=== PATIENT | male | born 1970 | race African-American/Black ===

== ENCOUNTER 2016-09-10 21:02 | Emergency (ER) | payer OTHER ==
[2016-09-10 21:09] VITALS: BP 136/77; PULSE 101; RESP 18; TEMP 98
[2016-09-10] MEDS ORDERED: ORPHENADRINE 30 MG/ML 2 ML VIAL IM STA (21:48)
[2016-09-10] MEDS ORDERED: KETOROLAC 60 MG/2 ML VIAL IM STA (21:48)
--- NOTE | 2016-09-10 21:50 | ED ---
General Adult HPI - General Chief complaint: Back Pain/Injury Stated complaint: Back Pain Time Seen by Provider: 09/10/16 21:27 Source: patient, RN notes reviewed Mode of arrival: ambulatory Limitations: no limitations - History of Present Illness Initial comments: This is a 46-year-old male who presents with chronic lower back pain. Patient states he currently takes tramadol for this, but it is not helping. Patient denies any new injury or new symptoms. 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 Patient has no idea what kind of tumor this is and has not had it reassessed in a long time. Patient just moved here from [place] and does not have a primary care physician. Patient is requesting pain medication. Patient denies any change in bowel or bladder function or loss of sensation to the saddle area. Patient denies any new numbness/tingling or weakness to the bilateral lower extremities. Patinet states he chronically has some radicular pain and left leg numbness but these symptoms are not worse. Patient is able to ambulate but states this is painful.Patient denies any recent fever, chills, shortness breath, chest pain, abdominal pain, nausea/vomiting/diarrhea, hematuria, headache, or visual changes, or any other complaints. - Related Data Previous Rx's Medication Instructions Recorded HYDROcodone/APAP 5-325MG [[place] 1 tab PO Q6HR #12 tab 09/10/16 5-325] Propranolol [Inderal] 40 mg PO BID 7 Days 09/10/16 Allergies Allergy/AdvReac Type Severity Reaction Status Date / Time No Known Allergies Allergy Verified 09/10/16 21:09 Review of Systems ROS Statement: Those systems with pertinent positive or pertinent negative responses have been documented in the HPI. ROS Other: All systems not noted in ROS Statement are negative. Past Medical History Past Medical History: Renal Disease Additional Past Medical History / Comment(s): tumor on back History of Any Multi-Drug Resistant Organisms: None Reported Past Surgical History: Back Surgery Additional Past Surgical History / Comment(s): cyst removed from throat Past Psychological History: Anxiety Smoking Status: Never smoker Past Alcohol Use History: None Reported Past Drug Use History: None Reported General Exam - General Exam Comments Initial Comments: General: The patient is awake and alert, in no distress, and does not appear acutely ill. Neck: The neck is supple, there is no tenderness or JVD. Cardiovascular: There is a regular rate and rhythm. No murmur, rub or gallop is appreciated. Respiratory: Lungs are clear to auscultation, respirations are non-labored, breath sounds are equal. No wheezes, stridor, rales, or rhonchi. Musculoskeletal: Strength 5/5, full range of motion and Sensation intact. Radial pulses 2+ bilaterally. Patient is ambulatory in the EC. Neurological: A&O x 3. CN II-XII intact, There are no obvious motor or sensory deficits. Coordination appears grossly intact. Speech is normal. Skin: Skin is warm and dry and no rashes or lesions are noted. Psychiatric: Normal mood and affect. Limitations: no limitations Course Vital Signs 09/10/16 21:08 Temperature 98.0 F Pulse Rate 101 H Respiratory 18 Rate Blood Pressure 136/77 O2 Sat by Pulse 99 Oximetry Medical Decision Making - Medical Decision Making This is a 46-year-old male presents with chronic back pain. Patient is requesting stronger pain medication as his tramadol is not working. On physical exam patient is neurologically intact. Strength 5/5, full range of motion and Sensation intact. Radial pulses 2+ bilaterally. Patient is ambulatory in the EC. An x-ray of the lumbar spine was done and reviewed showing: Negative lumbar spine exam. Report by Dr. Hunt. Patient was given Toradol and Norflex in the EC today. I discussed the patient will receive a short prescription for [place] until he can follow up with the primary care physician and orthopedics as he just recently moved here from [place]. I discussed return parameters. Patient was requesting a refill of his blood pressure medication as he only has 2 days left. Patient states he takes propanolol 40 mg twice daily and has been taking this for years. I discussed that he will be given a short prescription for this but he needs to follow-up with his primary care physician for any further prescriptions. I discussed the patient will be given a referral to orthopedics to follow up with a spine surgeon in regards to his history. Patient denies any new neuro symptoms or change in bowel or bladder function. I discussed the patient is to follow-up with a primary care physician and orthopedics in 1-2 days or return to the EC for any worsening symptoms or for any further concerns. Patient was receptive to this plan patient will be discharged home. Patient was given a primary care referral today. I discussed this case with attending physician Dr. Ron agrees with plan as stated above. Disposition Clinical Impression: Chronic low back pain Disposition: HOME SELF-CARE Condition: Good Instructions: Chronic Back Pain (ED) Additional Instructions: Please use [place] as prescribed. Please follow-up with orthopedics in regards to your back pain. Please take medication as prescribed. Please follow-up with her primary care physician in one to 2 days or return to the EC for worsening symptoms or for any further concerns. Prescriptions: HYDROcodone/APAP 5-325MG [[place] 5-325] 1 tab PO Q6HR #12 tab Propranolol [Inderal] 40 mg PO BID 7 Days Referrals: Cb Heredia MD [STAFF PHYSICIAN] - 1-2 days None,Stated [Primary Care Provider] - 1-2 days Jamaal Tobar MD [STAFF PHYSICIAN] - 1-2 days Dee Dee Martins MD [REFERRING] - 1-2 days Time of Disposition: 22:42
--- NOTE | 2016-09-10 22:11 | XR ---
EXAMINATION TYPE: XR lumbar spine 2 or 3V DATE OF EXAM: 09/10/2016 10:00 PM COMPARISON: NONE HISTORY: Low back pain TECHNIQUE: 3 views FINDINGS: The vertebra have normal alignment. Disc spaces are fairly normal. Posterior elements are i ntact. Sacroiliac joints are normal. There is no sign of a compression fracture. IMPRESSION: Negative lumbar spine exam.
== END 2016-09-10 22:54 | disposition home or self-care (01) ==
LOC: EC 21:02
DX: M54.5 Low back pain (principal); G89.29 Other chronic pain; Z86.018 Personal history of other benign neoplasm
CPT/HCPCS: 99283 ×2; 96372 ×3; 72100; J2360; J1885

== ENCOUNTER 2016-10-18 16:23 | Emergency (ER) | payer OTHER ==
[2016-10-18] MEDS ORDERED: KETOROLAC 30 MG/ML 1 ML VIAL IVP STA (17:00)
--- NOTE | 2016-10-18 17:41 | ED ---
Chest Pain HPI - General Chief Complaint: Chest Pain Stated Complaint: Chest Pain Time Seen by Provider: 10/18/16 16:36 Source: patient, RN notes reviewed Mode of arrival: wheelchair Limitations: no limitations - History of Present Illness Initial Comments: This is a 46-year-old male who presents with complaints of left-sided anterior chest pain somewhat sharp in nature also bilateral mostly on the left leg pain he states he was here about a month ago for the same symptoms he denies any fevers chills nausea vomiting sweats he has no known heart disease he believes he does have lumbar disc disease he was just concerned because of both pain he states is about 5/10 in severity. He denies any fevers chills cough or other symptoms at this time no exertional dyspnea. No focal weakness. MD Complaint: chest pain, other - Related Data Home Medications Medication Instructions Recorded Confirmed ALPRAZolam [Xanax] 0.5 mg PO TID PRN 10/18/16 10/18/16 Meclizine [Antivert] 25 mg PO TID PRN 10/18/16 10/18/16 traMADol HCL [Ultram] 50 mg PO Q6H PRN 10/18/16 10/18/16 Previous Rx's Medication Instructions Recorded Propranolol [Inderal] 40 mg PO BID 7 Days 09/10/16 Ibuprofen [Motrin] 800 mg PO Q6HR PRN #20 tab 10/18/16 Morphine Sulfate ER [Ms Contin] 30 mg PO Q8H #10 tab 10/18/16 predniSONE 20 mg PO BID #10 tab 10/18/16 Allergies Allergy/AdvReac Type Severity Reaction Status Date / Time hydroxyzine [From Vistaril] Allergy Unknown Verified 10/18/16 16:58 Review of Systems ROS Statement: Those systems with pertinent positive or pertinent negative responses have been documented in the HPI. ROS Other: All systems not noted in ROS Statement are negative. EKG Findings - EKG Results: EKG: interpreted by DON, sinus rhythm (Sinus rhythm rate of 79. Interval 154 QRS duration 94 QT/QTC 398/456 that exodeviation minimal voltage criteria for LVH no acute ST elevation or depressions.) Past Medical History Past Medical History: Renal Disease Additional Past Medical History / Comment(s): tumor on back History of Any Multi-Drug Resistant Organisms: None Reported Past Surgical History: Back Surgery Additional Past Surgical History / Comment(s): cyst removed from throat Past Psychological History: Anxiety Smoking Status: Former smoker Past Alcohol Use History: None Reported Past Drug Use History: None Reported General Exam - General Exam Comments Initial Comments: This is a well up well-nourished awake alert oriented 3 male Limitations: no limitations General appearance: alert, in no apparent distress Head exam: Present: atraumatic, normocephalic, normal inspection Eye exam: Present: normal appearance, PERRL, EOMI. Absent: scleral icterus, conjunctival injection, periorbital swelling ENT exam: Present: normal exam, mucous membranes moist Neck exam: Present: normal inspection. Absent: tenderness, meningismus, lymphadenopathy Respiratory exam: Present: normal lung sounds bilaterally, chest wall tenderness. Absent: respiratory distress, wheezes, rales, rhonchi, stridor Cardiovascular Exam: Present: regular rate, normal rhythm, normal heart sounds. Absent: systolic murmur, diastolic murmur, rubs, gallop, clicks GI/Abdominal exam: Present: soft, normal bowel sounds. Absent: distended, tenderness, guarding, rebound, rigid Extremities exam: Present: normal inspection, full ROM, normal capillary refill. Absent: tenderness, pedal edema, joint swelling, calf tenderness Back exam: Present: normal inspection, tenderness, paraspinal tenderness. Absent: vertebral tenderness Neurological exam: Present: alert, oriented X3, CN II-XII intact Psychiatric exam: Present: normal affect, normal mood Skin exam: Present: warm, dry, intact, normal color. Absent: rash Course Vital Signs 10/18/16 10/18/16 16:25 17:28 Temperature 98.1 F Pulse Rate 83 76 Respiratory 18 16 Rate Blood Pressure 118/75 133/82 O2 Sat by Pulse 100 99 Oximetry Chest Pain MDM - MDM Review the imaging shows no acute findings. Patient is feeling improved by did a long discussion with him the symptoms are consistent with musculoskeletal chest pain additionally the pain is lower extremities likely radicular from his lumbar spine. He is to follow-up with Dr. godinez when necessary. Disposition Clinical Impression: Chest wall syndrome, Costalchondritis, Lumbar radiculopathy Disposition: HOME SELF-CARE Condition: Good Instructions: Costochondritis (ED), Chest Pain (ED), Lumbar Radiculopathy (ED) , Lower Back Exercises (ED) Prescriptions: Ibuprofen [Motrin] 800 mg PO Q6HR PRN #20 tab PRN Reason: Pain Morphine Sulfate ER [Ms Contin] 30 mg PO Q8H #10 tab predniSONE 20 mg PO BID #10 tab
[2016-10-18 17:48] VITALS: RESP 16
[2016-10-18 17:54] LABS: Basophils # (A) 0.1 k/uL (0-0.2); Basophils % (A) 2 %; CH 27.6; CHCM 31.4; Eosinophils # (A) 0.4 k/uL (0-0.7); Eosinophils % (A) 7 %; HCT 42.8 % (39.0-53.0); HDW 3.95; HGB 13.7 gm/dL (13.0-17.5); Hypochromasia Moderate; Luc # (Auto) 0.17; Luc % (Auto) 3; Lymphocytes # (A) 2.2 k/uL (1.0-4.8); Lymphocytes % (A) 45 %; MCH 28.4 pg (25.0-35.0); MCHC 31.9 g/dL (31.0-37.0); MCV 88.8 fL (80.0-100.0); Monocytes # (A) 0.3 k/uL (0-1.0); Monocytes % (A) 6 %; Neutrophils # (A) 1.8 k/uL (1.3-7.7); Neutrophils % (A) 36 %; Poikilocytosis Slight; RBC 4.81 m/uL (4.30-5.90); WBC 4.9 k/uL (3.8-10.6); WBC (Perox) 4.88
[2016-10-18 18:04] LABS: Partial Thromboplastin Time 26.5 sec (22.0-30.0)
[2016-10-18 18:05] LABS: ALT 44 U/L (21-72); AST 31 U/L (17-59); Alkaline Phosphatase 60 U/L (38-126); Amylase 93 U/L (30-110); Anion Gap 10 mmol/L; Blood Urea Nitrogen 19 mg/dL (9-20); Calcium 9.9 mg/dL (8.4-10.2); Carbon Dioxide 26 mmol/L (22-30); Chloride 103 mmol/L (98-107); Glucose 87 mg/dL (74-99); Magnesium 1.7 mg/dL (1.6-2.3); Non-African American GFR(MDRD) >60 (>60 ml/min/1.73 sqM); Potassium 4.5 mmol/L (3.5-5.1); Sodium 139 mmol/L (137-145); Total Bilirubin 1.1 mg/dL (0.2-1.3); Total Protein 7.7 g/dL (6.3-8.2)
[2016-10-18 18:10] LABS: Creatine Kinase 345 U/L (55-170)
[2016-10-18 18:23] LABS: Creatine Kinase MB 1.1 ng/mL (0.0-2.4); Troponin I <0.012 ng/mL (0.000-0.034)
--- NOTE | 2016-10-18 18:23 | XR ---
EXAMINATION TYPE: XR chest 2V DATE OF EXAM: 10/18/2016 6:10 PM COMPARISON: NONE HISTORY: Chest pain TECHNIQUE: Frontal and lateral views of the chest are obtained. FINDINGS: Heart and mediastinum are normal. There is mild thoracic dextroscoliosis. There is mild li near density in both lower lung forman. There are no hilar masses. There are chest leads. Bony thorax appears intact. IMPRESSION: Mild scarring or subsegmental atelectasis. Normal heart.
--- NOTE | 2016-10-18 18:24 | XR ---
EXAMINATION TYPE: XR lumbosacral spine min 4V DATE OF EXAM: 10/18/2016 6:10 PM COMPARISON: NONE HISTORY: Low back pain TECHNIQUE: 5 views FINDINGS: The lumbar vertebra have normal alignment. Posterior elements are intact. Sacroiliac joints appear normal. There is no compression fracture. IMPRESSION: Negative lumbar spine exam.
[2016-10-18 19:21] VITALS: BP 110/72; PULSE 66; TEMP 97.8
== END 2016-10-18 19:10 | disposition home or self-care (01) ==
LOC: EC 16:23
DX: M94.0 Chondrocostal junction syndrome [Tietze] (principal); M54.16 Radiculopathy, lumbar region; Z87.891 Personal history of nicotine dependence; Z88.8 Allergy status to other drugs, medicaments and biological substances
CPT/HCPCS: 36415; 93005; 85379; 80053; 82150; 82550; 82553; 83690; 83735; 84484; 85025; 85610; 85730; 71020; 72110; 99285; 96374; J1885

== ENCOUNTER 2016-10-26 10:11 | Emergency (ER) | payer OTHER ==
[2016-10-26 10:15] VITALS: BP 156/96; PULSE 69; RESP 16; TEMP 98
--- NOTE | 2016-10-26 10:36 | ED ---
General Adult HPI - General Chief complaint: Recheck/Abnormal Lab/Rx Stated complaint: med refill Time Seen by Provider: 10/26/16 10:25 Source: patient, RN notes reviewed Mode of arrival: ambulatory Limitations: no limitations - History of Present Illness Initial comments: Patient 46-year-old male who presents emergency room today with chief complaint of needing medication refill. He states he recently moved here from [place]. States he is out of medications of aspirin, propranolol, and Xanax. Patient states he does have an appointment with the family doctor but not until November 11. Patient denies any complaints. Patient denies any recent fever, chills, shortness of breath, chest pain, back pain, abdominal pain, nausea or vomiting, numbness or tingling, dysuria or hematuria, constipation or diarrhea, headaches or visual changes, or any other complaints. - Related Data Home Medications Medication Instructions Recorded Confirmed ALPRAZolam [Xanax] 0.5 mg PO TID PRN 10/18/16 10/18/16 Meclizine [Antivert] 25 mg PO TID PRN 10/18/16 10/18/16 traMADol HCL [Ultram] 50 mg PO Q6H PRN 10/18/16 10/18/16 Previous Rx's Medication Instructions Recorded Propranolol [Inderal] 40 mg PO BID 7 Days 09/10/16 Ibuprofen [Motrin] 800 mg PO Q6HR PRN #20 tab 10/18/16 Morphine Sulfate ER [Ms Contin] 30 mg PO Q8H #10 tab 10/18/16 predniSONE 20 mg PO BID #10 tab 10/18/16 ALPRAZolam [Xanax] 0.5 mg PO Q8HR #45 tab 10/26/16 Aspirin 81 mg PO DAILY #30 chewable 10/26/16 Propranolol [Inderal] 40 mg PO BID #60 tab 10/26/16 Allergies Allergy/AdvReac Type Severity Reaction Status Date / Time hydroxyzine [From Vistaril] Allergy Unknown Verified 10/26/16 10:15 Review of Systems ROS Statement: Those systems with pertinent positive or pertinent negative responses have been documented in the HPI. ROS Other: All systems not noted in ROS Statement are negative. Past Medical History Past Medical History: Hypertension, Renal Disease Additional Past Medical History / Comment(s): tumor on back History of Any Multi-Drug Resistant Organisms: None Reported Past Surgical History: Back Surgery Additional Past Surgical History / Comment(s): cyst removed from throat Past Psychological History: Anxiety Smoking Status: Former smoker Past Alcohol Use History: None Reported Past Drug Use History: None Reported General Exam - General Exam Comments Initial Comments: General: The patient is awake and alert, in no distress, and does not appear acutely ill. Eye: Pupils are equal, round and reactive to light, extra-ocular movements are intact. No nystagmus. There is normal conjunctiva bilaterally. No signs of icterus. Ears, nose, mouth and throat: There are moist mucous membranes and no oral lesions. Neck: The neck is supple, there is no tenderness or JVD. Musculoskeletal: Normal ROM, no tenderness. Strength 5/5. Sensation intact. Pulses equal bilaterally 2+. Neurological: A&O x 3. CN II-XII intact, There are no obvious motor or sensory deficits. Coordination appears grossly intact. Speech is normal. Skin: Skin is warm and dry and no rashes or lesions are noted. Psychiatric: Cooperative, appropriate mood & affect, normal judgment. Limitations: no limitations Course Vital Signs 10/26/16 10:12 Temperature 98.0 F Pulse Rate 69 Respiratory 16 Rate Blood Pressure 156/96 O2 Sat by Pulse 97 Oximetry Medical Decision Making - Medical Decision Making Patient will be given prescriptions is able follow-up in 2 weeks with family doctor. Disposition Clinical Impression: Medication refill Disposition: HOME SELF-CARE Condition: Good Instructions: Medicine Refill (ED) Additional Instructions: Please use medications as prescribed and follow-up family doctor as discussed. Please return for any other concerns. Prescriptions: ALPRAZolam [Xanax] 0.5 mg PO Q8HR #45 tab Aspirin 81 mg PO DAILY #30 chewable Propranolol [Inderal] 40 mg PO BID #60 tab Time of Disposition: 10:32
== END 2016-10-26 11:07 | disposition home or self-care (01) ==
LOC: EC 10:11
DX: Z76.0 Encounter for issue of repeat prescription (principal); Z87.891 Personal history of nicotine dependence; Z88.8 Allergy status to other drugs, medicaments and biological substances
CPT/HCPCS: 99281

== ENCOUNTER 2016-11-14 13:40 | Emergency (ER) | payer OTHER ==
[2016-11-14 13:49] VITALS: RESP 18
[2016-11-14] MEDS ORDERED: HYDROcodone/APAP 5-325MG 1 EACH TAB PO STA (14:14)
--- NOTE | 2016-11-14 14:16 | ED ---
ENT HPI - General Chief complaint: Dental/Oral Stated complaint: Dental Pain Time Seen by Provider: 11/14/16 14:00 Source: patient, RN notes reviewed Mode of arrival: EMS Limitations: no limitations - History of Present Illness Initial comments: 46-year-old male presents emergency department she went dental pain. Patient states that he had teeth extracted on the left upper region. This was 1 week ago. Patient states she's developed some increased pain over the last couple days so dentist yesterday and diagnosed with dry socket. Patient states that they would not give him anything but ibuprofen from the dental clinic. He should states that he cannot tolerate the pain is unbearable. States that the pain is making her very shaky and not feeling well. He denies any fevers or chills. Patient is currently taking penicillin antibiotics. Patient's denies any focal weakness no chest pain or shortness breath. Patient offers no complaints. - Related Data Previous Rx's Medication Instructions Recorded Ibuprofen [Motrin] 800 mg PO Q6HR PRN #20 tab 10/18/16 ALPRAZolam [Xanax] 0.5 mg PO Q8HR #45 tab 10/26/16 Aspirin 81 mg PO DAILY #30 chewable 10/26/16 Propranolol [Inderal] 40 mg PO BID #60 tab 10/26/16 Hydrocodone/Acetaminophen [[place] 1 tab PO Q6HR PRN #15 tab 11/14/16 5-325] Allergies Allergy/AdvReac Type Severity Reaction Status Date / Time hydroxyzine [From Vistaril] Allergy Unknown Verified 10/26/16 10:43 caffeine AdvReac SHAKING Verified 11/14/16 14:01 Review of Systems ROS Statement: Those systems with pertinent positive or pertinent negative responses have been documented in the HPI. ROS Other: All systems not noted in ROS Statement are negative. Past Medical History Past Medical History: Hypertension, Renal Disease Additional Past Medical History / Comment(s): tumor on back History of Any Multi-Drug Resistant Organisms: None Reported Past Surgical History: Back Surgery Additional Past Surgical History / Comment(s): cyst removed from throat Past Psychological History: Anxiety Smoking Status: Former smoker Past Alcohol Use History: None Reported Past Drug Use History: None Reported General Exam General appearance: alert, in no apparent distress Head exam: Present: atraumatic, normocephalic, normal inspection Eye exam: Present: normal appearance, PERRL, EOMI. Absent: scleral icterus, conjunctival injection, periorbital swelling ENT exam: Present: mucous membranes moist, TM's normal bilaterally. Absent: normal oropharynx (poor dentition, the region of #11 there is a large pocket noted with some dry blood and tissue noted) Neck exam: Present: normal inspection. Absent: tenderness, meningismus, lymphadenopathy Respiratory exam: Present: normal lung sounds bilaterally. Absent: respiratory distress, wheezes, rales, rhonchi, stridor Cardiovascular Exam: Present: regular rate, normal rhythm, normal heart sounds. Absent: systolic murmur, diastolic murmur, rubs, gallop, clicks Course Vital Signs 11/14/16 13:43 Temperature 98.2 F Pulse Rate 69 Respiratory 18 Rate Blood Pressure 139/95 O2 Sat by Pulse 99 Oximetry Medical Decision Making - Medical Decision Making 46-year-old male presented for dental pain. Patient be given pain medication at this time. Patient with diagnosis dry socket and only has ibuprofen. Patient is currently on antibiotics. Patient follow-up with dentist tomorrow return parameters were discussed. Disposition Clinical Impression: Dry socket, Pain, dental Disposition: HOME SELF-CARE Condition: Stable Instructions: Dry Socket (ED) Additional Instructions: Please return to the Emergency Department if symptoms worsen or any other concerns. Follow-up with the dentist in one to 2 days. Prescriptions: Hydrocodone/Acetaminophen [[place] 5-325] 1 tab PO Q6HR PRN #15 tab PRN Reason: Pain Referrals: None,Stated [Primary Care Provider] - 1-2 days Time of Disposition: 14:15
[2016-11-14 14:37] VITALS: BP 124/76; PULSE 65; TEMP 98
== END 2016-11-14 14:36 | disposition home or self-care (01) ==
LOC: EC 13:40
DX: K08.89 Other specified disorders of teeth and supporting structures (principal); M27.3 Alveolitis of jaws; Z87.891 Personal history of nicotine dependence; Z91.018 Allergy to other foods; Z88.8 Allergy status to other drugs, medicaments and biological substances
CPT/HCPCS: 99283

== ENCOUNTER → 2017-01-28 | Outpatient (CLI) | payer OTHER ==
--- NOTE | 2017-01-28 13:16 | MR ---
EXAMINATION TYPE: MR lumbar spine wo con DATE OF EXAM: 01/28/2017 COMPARISON: Plain film 10/18/2016 HISTORY: lumbar pain TECHNIQUE: Multiplanar, multisequence images of the lumbar spine were acquired. L1-L2: Normal disc appearance without desiccation. No herniation, protrusion or disc bulging. No ca nal stenosis is present. Foramina are patent bilaterally. L2-L3: Normal disc appearance without desiccation. No herniation, protrusion or disc bulging. No ca nal stenosis is present. Foramina are patent bilaterally. L3-L4: Loss of disc height and signal is present. There is a central posterior disc herniation causin g anterior mass effect on the thecal sac. No significant foraminal encroachment or central stenosis. There is some facet arthropathy with hypertrophy of the ligamentum flavum. Increased signal posterior aspect of the disc compatible with annular tear. L4-L5: Loss of disc height and signal is present. There is a posterior central disc herniation causin g anterior mass effect on the thecal sac. There may be contact of the proximal left L5 nerve root. In creased signal at the posterior aspect suggests annular tear within the posterior disc. Disc herniati on extends somewhat laterally causing anterolateral mass effect on the thecal sac towards the left. L5-S1: Loss of disc height is present. Loss of disc signal. No significant central stenosis or forami nal encroachment. Lumbar segments are intact. No paraspinal masses are identified. Conus medullaris has a normal appe arance. There is a slight spinal curvature convex left centered at approximately L3. Partially sacral ized L5 is suspected. IMPRESSION: Correlate with plain film prior to any intervention. Degenerative disc disease as described.
== END | disposition home or self-care (01) ==
LOC: RADMRIMAIN 08:37
PROVIDERS: ATTEND Internal Medicine
DX: M51.36 Other intervertebral disc degeneration, lumbar region (principal)
CPT/HCPCS: 72148

== ENCOUNTER 2017-02-26 00:20 | Emergency (ER) | payer OTHER ==
[2017-02-26 00:24] VITALS: TEMP 98
[2017-02-26] MEDS ORDERED: SODIUM CHLORIDE 0.9% 1,000 ML IV STA ×2 (02:00)
[2017-02-26] MEDS ORDERED: HYDROmorphone 1 MG/ML 1 ML SYRINGE IVP STA (02:00)
[2017-02-26] MEDS ORDERED: ONDANSETRON 4 MG/2 ML VIAL IVP STA (02:00)
[2017-02-26 02:48] LABS: Appearance,Urine Clear (Clear); Basophils # (A) 0.1 k/uL (0-0.2); Basophils % (A) 1 %; Bilirubin,Urine Negative (Negative); CH 27.3; CHCM 31.8; Eosinophils # (A) 0.3 k/uL (0-0.7); Eosinophils % (A) 5 %; Glucose,Urine (UA) Negative (Negative); HDW 3.87; HGB 13.5 gm/dL (13.0-17.5); Hypochromasia Moderate; Ketones,Urine Negative (Negative); Leukocyte Esterase,Urine Negative (Negative); Luc # (Auto) 0.14; Luc % (Auto) 2; Lymphocytes # (A) 2.4 k/uL (1.0-4.8); Lymphocytes % (A) 40 %; MCH 27.8 pg (25.0-35.0); MCHC 32.1 g/dL (31.0-37.0); MCV 86.7 fL (80.0-100.0); Mean Platelet Volume 7.9; Monocytes # (A) 0.4 k/uL (0-1.0); Monocytes % (A) 7 %; Neutrophils # (A) 2.8 k/uL (1.3-7.7); Neutrophils % (A) 46 %; Nitrite,Urine Negative (Negative); PH, Urine 5.5 (5.0-8.0); Poikilocytosis Slight; Protein,Urine Negative (Negative); RBC 4.85 m/uL (4.30-5.90); RDW 14.2 % (11.5-15.5); Specific Gravity,Urine 1.017 (1.001-1.035); UA Billing (MACRO vs. MICRO) CHEM; Urobilinogen,Urine <2.0 mg/dL (<2.0)
--- NOTE | 2017-02-26 02:56 | XR ---
EXAM: XR KUB, 1 View CLINICAL HISTORY: Reason: abdominal pain TECHNIQUE: Frontal supine view of the abdomen/pelvis. COMPARISON: No relevant prior studies available. FINDINGS: Gastrointestinal tract: Colonic fecal stasis. No dilation. Bones/joints: Unremarkable. IMPRESSION: Colonic fecal stasis.
[2017-02-26 02:57] LABS: ALT 54 U/L (21-72); AST 33 U/L (17-59); Alkaline Phosphatase 70 U/L (38-126); Amylase 75 U/L (30-110); Anion Gap 11 mmol/L; Blood Urea Nitrogen 11 mg/dL (9-20); Calcium 9.6 mg/dL (8.4-10.2); Carbon Dioxide 24 mmol/L (22-30); Chloride 107 mmol/L (98-107); Glucose 95 mg/dL (74-99); Non-African American GFR(MDRD) >60 (>60 ml/min/1.73 sqM); Potassium 3.9 mmol/L (3.5-5.1); Sodium 142 mmol/L (137-145); Total Bilirubin 0.6 mg/dL (0.2-1.3)
--- NOTE | 2017-02-26 03:06 | ED ---
General Adult HPI - General Chief complaint: Abdominal Pain Stated complaint: abd pain, med refill Time Seen by Provider: 02/26/17 01:54 Source: patient, RN notes reviewed Mode of arrival: ambulatory Limitations: no limitations - History of Present Illness Initial comments: Patient 46-year-old male who presents emergency room today with a chief complaint of upper abdominal pain over the last week. He does admit that his had similar symptoms in the past. He states that he is from [place] has been seen by doctors there had an ultrasound which did show some fatty liver. He does admit that he was a drinker in the past. Patient states he was also told once that he had hepatitis. He states that he was told that he didn't. He states he came here to the emergency room disease concerns is is been having this pain for the last week and does not have family doctor to see at this time. He was feeling nauseated. He denies any other complaints. She does admit that is also out of his medication of Xanax that he takes for anxiety. Denies anything that makes it better or worse states is somewhat constant sharp type pain located in the right upper quadrant. Patient denies any recent fever, chills, shortness of breath, chest pain, back pain, numbness or tingling, dysuria or hematuria, constipation or diarrhea, headaches or visual changes, or any other complaints. - Related Data Home Medications Medication Instructions Recorded Confirmed ALPRAZolam [Xanax] 0.25 mg PO Q8HR 02/26/17 02/26/17 Previous Rx's Medication Instructions Recorded Ibuprofen [Motrin] 800 mg PO Q6HR PRN #20 tab 10/18/16 Aspirin 81 mg PO DAILY #30 chewable 10/26/16 Propranolol [Inderal] 40 mg PO BID #60 tab 10/26/16 ALPRAZolam [Xanax] 0.25 mg PO BID PRN #15 tab 02/26/17 Omeprazole 20 mg PO DAILY #20 capsule. 02/26/17 Allergies Allergy/AdvReac Type Severity Reaction Status Date / Time hydroxyzine [From Vistaril] Allergy Unknown Verified 02/26/17 00:24 caffeine AdvReac SHAKING Verified 02/26/17 00:24 Review of Systems ROS Statement: Those systems with pertinent positive or pertinent negative responses have been documented in the HPI. ROS Other: All systems not noted in ROS Statement are negative. Past Medical History Past Medical History: Hypertension, Renal Disease Additional Past Medical History / Comment(s): tumor on back History of Any Multi-Drug Resistant Organisms: None Reported Past Surgical History: Back Surgery Additional Past Surgical History / Comment(s): cyst removed from throat Past Psychological History: Anxiety, Bipolar Smoking Status: Former smoker Past Alcohol Use History: None Reported Past Drug Use History: None Reported General Exam - General Exam Comments Initial Comments: General: The patient is awake and alert, in no distress, and does not appear acutely ill. Eye: Pupils are equal, round and reactive to light, extra-ocular movements are intact. No nystagmus. There is normal conjunctiva bilaterally. No signs of icterus. Ears, nose, mouth and throat: There are moist mucous membranes and no oral lesions. Neck: The neck is supple, there is no tenderness or JVD. Cardiovascular: There is a regular rate and rhythm. No murmur, rub or gallop is appreciated. Respiratory: Lungs are clear to auscultation, respirations are non-labored, breath sounds are equal. No wheezes, stridor, rales, or rhonchi. Gastrointestinal: Soft, non-distended, non-tender abdomen without masses or organomegaly noted. There is no rebound or guarding present. No CVA tenderness. Bowel sounds are unremarkable. Musculoskeletal: Normal ROM, no tenderness. Strength 5/5. Sensation intact. Pulses equal bilaterally 2+. Neurological: A&O x 3. CN II-XII intact, There are no obvious motor or sensory deficits. Coordination appears grossly intact. Speech is normal. Skin: Skin is warm and dry and no rashes or lesions are noted. Psychiatric: Cooperative, appropriate mood & affect, normal judgment. Limitations: no limitations Course Vital Signs 02/26/17 00:22 Temperature 98 F Pulse Rate 95 Respiratory 18 Rate Blood Pressure 134/82 O2 Sat by Pulse 98 Oximetry Medical Decision Making - Medical Decision Making Patient resting comfortably in the stretcher and shows no signs of distress. His abdomen soft nontender His labs been reviewed are unremarkable. At this time patient will be discharged home given family doctor to follow-up with. Patient will be started on omeprazole. Advised return for any other concerns. - Lab Data Result diagrams: 02/26/17 02:30 02/26/17 02:30 Lab Results 02/26/17 02/26/17 02/26/17 Range/Units 02:30 02:30 02:30 WBC 6.0 (3.8-10.6) k/uL RBC 4.85 (4.30-5.90) m/uL Hgb 13.5 (13.0-17.5) gm/dL Hct 42.0 (39.0-53.0) % MCV 86.7 (80.0-100.0) fL MCH 27.8 (25.0-35.0) pg MCHC 32.1 (31.0-37.0) g/dL RDW 14.2 (11.5-15.5) % Plt Count 229 (150-450) k/uL Neutrophils % 46 % Lymphocytes % 40 % Monocytes % 7 % Eosinophils % 5 % Basophils % 1 % Neutrophils # 2.8 (1.3-7.7) k/uL Lymphocytes # 2.4 (1.0-4.8) k/uL Monocytes # 0.4 (0-1.0) k/uL Eosinophils # 0.3 (0-0.7) k/uL Basophils # 0.1 (0-0.2) k/uL Hypochromasia Moderate Poikilocytosis Slight Sodium 142 (137-145) mmol/L Potassium 3.9 (3.5-5.1) mmol/L Chloride 107 (98-107) mmol/L Carbon Dioxide 24 (22-30) mmol/L Anion Gap 11 mmol/L BUN 11 (9-20) mg/dL Creatinine 1.00 (0.66-1.25) mg/dL Est GFR (MDRD) Af Amer >60 (>60 ml/min/1.73 sqM) Est GFR (MDRD) Non-Af >60 (>60 ml/min/1.73 sqM) Glucose 95 (74-99) mg/dL Calcium 9.6 (8.4-10.2) mg/dL Total Bilirubin 0.6 (0.2-1.3) mg/dL AST 33 (17-59) U/L ALT 54 (21-72) U/L Alkaline Phosphatase 70 (38-126) U/L Total Protein 7.0 (6.3-8.2) g/dL Albumin 4.3 (3.5-5.0) g/dL Amylase 75 (30-110) U/L Lipase 112 (23-300) U/L Urine Color Yellow Urine Appearance Clear (Clear) Urine pH 5.5 (5.0-8.0) Ur Specific [place] 1.017 (1.001-1.035) Urine Protein Negative (Negative) Urine Glucose (UA) Negative (Negative) Urine Ketones Negative (Negative) Urine Blood Negative (Negative) Urine Nitrite Negative (Negative) Urine Bilirubin Negative (Negative) Urine Urobilinogen <2.0 (<2.0) mg/dL Ur Leukocyte Esterase Negative (Negative) Disposition Clinical Impression: Chronic abdominal pain Disposition: HOME SELF-CARE Condition: Good Instructions: Abdominal Pain (ED) Additional Instructions: Please follow-up family doctor. Please use medication as prescribed and return to emergency room if any symptoms increase or worsen or for any other concerns. Prescriptions: ALPRAZolam [Xanax] 0.25 mg PO BID PRN #15 tab PRN Reason: Anxiety Omeprazole 20 mg PO DAILY #20 capsule.dr Referrals: Doris Mckeon MD [Primary Care Provider] - 1-2 days Time of Disposition: 03:03
[2017-02-26 03:18] VITALS: BP 118/59; PULSE 68; RESP 16
== END 2017-02-26 03:18 | disposition home or self-care (01) ==
LOC: EC 00:20
DX: G89.29 Other chronic pain (principal); R10.11 Right upper quadrant pain; R11.0 Nausea; F41.9 Anxiety disorder, unspecified; Z87.891 Personal history of nicotine dependence; Z79.899 Other long term (current) drug therapy; Z88.8 Allergy status to other drugs, medicaments and biological substances; Z91.018 Allergy to other foods
CPT/HCPCS: 36415; 80053; 82150; 83690; 85025; 81003; 74000; 99284; 96374; 96375; 96361; J2405; J1170

== ENCOUNTER 2017-05-31 09:08 | Emergency (ER) | payer OTHER ==
--- NOTE | 2017-05-31 09:37 | ED ---
General Adult HPI - General Chief complaint: Dental/Oral Stated complaint: dental pain Time Seen by Provider: 05/31/17 09:18 Source: patient, RN notes reviewed Mode of arrival: ambulatory Limitations: no limitations - History of Present Illness Initial comments: Patient is a 47-year-old male who presents emergency room today with chief complaint of increased dental pain. He does admit that he has history of poor dental hygiene. Does admit that he's had abscesses before. Does admit that her last 3 days she's noticed increased pain in the gumline of tooth #30. Patient does admit that it is fractured on the gumline here. He states this is from longtime ago. He states he has not been able to get into a dentist. Patient states is not on any antibiotic. Patient denies any other complaints or associated symptoms. Patient denies any recent fever, chills, shortness of breath, chest pain, back pain, abdominal pain, nausea or vomiting, numbness or tingling, dysuria or hematuria, constipation or diarrhea, headaches or visual changes, or any other complaints. - Related Data Previous Rx's Medication Instructions Recorded Ibuprofen [Motrin] 800 mg PO Q6HR PRN #20 tab 10/18/16 Aspirin 81 mg PO DAILY #30 chewable 10/26/16 Propranolol [Inderal] 40 mg PO BID #60 tab 10/26/16 ALPRAZolam [Xanax] 0.25 mg PO BID PRN #15 tab 02/26/17 Omeprazole 20 mg PO DAILY #20 capsule. 02/26/17 Penicillin V Potassium [Pen Vee K] 500 mg PO QID #40 tablet 05/31/17 Allergies Allergy/AdvReac Type Severity Reaction Status Date / Time gabapentin Allergy Unknown Verified 05/31/17 09:33 hydroxyzine [From Vistaril] Allergy Unknown Verified 05/31/17 09:33 caffeine AdvReac SHAKING Verified 05/31/17 09:33 Review of Systems ROS Statement: Those systems with pertinent positive or pertinent negative responses have been documented in the HPI. ROS Other: All systems not noted in ROS Statement are negative. Past Medical History Past Medical History: Hypertension, Renal Disease Additional Past Medical History / Comment(s): tumor on back History of Any Multi-Drug Resistant Organisms: None Reported Past Surgical History: Back Surgery Additional Past Surgical History / Comment(s): cyst removed from throat Past Psychological History: Anxiety, Bipolar Smoking Status: Former smoker Past Alcohol Use History: None Reported Past Drug Use History: None Reported General Exam - General Exam Comments Initial Comments: General: The patient is awake and alert, in no distress, and does not appear acutely ill. Eye: Pupils are equal, round and reactive to light, extra-ocular movements are intact. No nystagmus. There is normal conjunctiva bilaterally. No signs of icterus. Ears, nose, mouth and throat: There are moist mucous membranes and no oral lesions. Patient does have swelling in the gumline of tooth #30. Tooth is fractured down to the gumline. Uvula midline. Patient swallows without difficulty. Neck: The neck is supple, there is no tenderness or JVD. Cardiovascular: There is a regular rate and rhythm. No murmur, rub or gallop is appreciated. Respiratory: Lungs are clear to auscultation, respirations are non-labored, breath sounds are equal. No wheezes, stridor, rales, or rhonchi. Musculoskeletal: Normal ROM, no tenderness. Strength 5/5. Sensation intact. Pulses equal bilaterally 2+. Neurological: A&O x 3. CN II-XII intact, There are no obvious motor or sensory deficits. Coordination appears grossly intact. Speech is normal. Skin: Skin is warm and dry and no rashes or lesions are noted. Psychiatric: Cooperative, appropriate mood & affect, normal judgment. Limitations: no limitations Course Vital Signs 05/31/17 09:19 Temperature 97.9 F Pulse Rate 72 Respiratory 17 Rate Blood Pressure 143/83 O2 Sat by Pulse 98 Oximetry Procedures - Procedures Initial comment: Patient does have some swelling to the gumline of tooth #30. Visualized and 27- gauge needle was used to make a small incision. A small amount bleeding and drainage came from the area which a yaunker with suction was used to remove. Patient tolerated procedure well. Medical Decision Making - Medical Decision Making Patient's swelling to the gumline was attempted to be drained with a 27-gauge needle here in emergency room. Small amount of bleeding came from the area and no sign of purulent drainage. Patient is advised to use gauze to the gumline along with a T bag for comfort. Advised to follow-up the oral surgeon. Will be started on antibiotic. Disposition Clinical Impression: Dental abscess Disposition: HOME SELF-CARE Condition: Good Instructions: Dental Abscess (ED) Additional Instructions: Please use antibiotic as prescribed. Please follow-up with oral surgeon over the next 1-2 days. Please return to emergency room if the symptoms increase or worsen or for any other concerns. Prescriptions: Penicillin V Potassium [Pen Vee K] 500 mg PO QID #40 tablet Referrals: Doris Mckeon MD [Primary Care Provider] - 1-2 days Lance Mckeon DDS [STAFF PHYSICIAN] - 1-2 days Time of Disposition: 09:36
[2017-05-31 09:40] VITALS: BP 143/83; PULSE 72; RESP 17; TEMP 97.9
[2017-05-31] MEDS ORDERED: IBUPROFEN 600 MG STARTER PACK 4 TAB BTL PO STA (09:43)
== END 2017-05-31 09:48 | disposition home or self-care (01) ==
LOC: EC 09:08
DX: K04.7 Periapical abscess without sinus (principal); Z87.891 Personal history of nicotine dependence; Z91.018 Allergy to other foods; Z88.8 Allergy status to other drugs, medicaments and biological substances
CPT/HCPCS: 41800; 99282

== ENCOUNTER → 2017-06-25 | Outpatient (CLI) | payer OTHER ==
[2017-06-25 13:45] VITALS: BP 159/93; PULSE 83; RESP 14
--- NOTE | 2017-06-25 14:23 | P.CONS ---
History of Present Illness - Reason for Consult Consult date: 06/25/17 - Chief Complaint Lower back and legs pain - History of Present Illness This is a 47-year-old male with history of lower back pain that radiates down to the thighs anteriorly with numbness and tingling In the anterior thighs. He denies any bowel or bladder dysfunction he does feel weakness in his legs but he denies any weight loss. This pain gets worse by activities and improves by laying down in bed. He takes tramadol for this pain. He moved recently from [place] and he had one episode of acute renal failure and had to be dialyzed because of an overdose of Tylenol as he states. The patient has been having these symptoms for at least 1 year especially the weakness in his thigh muscles. Had an MRI on the lumbar spine which showed disc herniation with mass effect at the L4 5 level. Past Medical History Past Medical History: Hypertension, Renal Disease Additional Past Medical History / Comment(s): tumor on back History of Any Multi-Drug Resistant Organisms: None Reported Past Surgical History: Back Surgery Additional Past Surgical History / Comment(s): cyst removed from throat Past Psychological History: Anxiety, Bipolar Smoking Status: Former smoker Past Alcohol Use History: None Reported Past Drug Use History: None Reported Medications and Allergies Home Medications Medication Instructions Recorded Confirmed Type Ibuprofen [Motrin] 800 mg PO Q6HR PRN #20 tab 10/18/16 05/31/17 Rx Aspirin 81 mg PO DAILY #30 chewable 10/26/16 05/31/17 Rx Propranolol [Inderal] 40 mg PO BID #60 tab 10/26/16 05/31/17 Rx ALPRAZolam [Xanax] 0.25 mg PO BID PRN #15 tab 02/26/17 05/31/17 Rx Omeprazole 20 mg PO DAILY #20 capsule. 02/26/17 05/31/17 Rx Ibuprofen [Motrin] 600 mg PO Q6HR PRN #40 day 05/31/17 Rx Meclizine [Antivert] 25 mg PO BID 05/31/17 05/31/17 History Penicillin V Potassium [Pen Vee K] 500 mg PO QID #40 tablet 05/31/17 Rx traMADol HCL [Ultram] 50 mg PO BID 05/31/17 05/31/17 History Allergies Allergy/AdvReac Type Severity Reaction Status Date / Time gabapentin Allergy Unknown Verified 05/31/17 09:33 hydroxyzine [From Vistaril] Allergy Unknown Verified 05/31/17 09:33 caffeine AdvReac SHAKING Verified 05/31/17 09:33 Physical Exam Vitals: Vital Signs Pulse Resp BP Pulse Ox 06/25/17 13:36 83 14 159/93 96 1-Constitutional : Cooperative , not in acute distress . 2-HEENT : nech ; supple , no Lymphadenopathy , no Thyromegaly , normal thyroid size , normal range of motion . eyes : no ptosis , no icterus, no photophobia . 3- Respiratory : Chest clear to auscultations Bilaterally , no wheezing , no Rhonchi . 4- Cardiovascular : regular rate and rhythem , S1 , S2 , no S3 , no S4. 5- Gastrointestinal: abdomen soft no tenderness , bowel sounds positive all four quadrents , no organomegally . 6- Genitourinary : Defferred . 7-Integumentary : No cellulitis , no ulcers , normal skin turgor , no cyanotic . 8- neurologic : Cranial nerve II to XII intact , no focal neurological deffecit . 9-psychatric : alert , oriented X 3 , appropriate affect , intact judgment and insight . 10-Lymphatic : no Lymphadenopathy . 11- musculoskeltal: normal gait Neuro exam of the lower extremities showed absent deep tendon reflexes bilaterally and symmetrically and decreased hip flexion to 4 out of 5 bilaterally strength exam is within normal limits in the lower extremities. Neuro exam on the upper extremities showed normal muscle strength bilaterally and symmetrically. Assessment and Plan Plan: This is a 47-year-old male with history of lower back pain with radiation to the thighs anteriorly with numbness and tingling on the anterior aspect of both thighs and weakness in the proximal muscles of the lower extremities bilaterally. Patient also has areflexia in the lower extremities. The MRI shows disc herniation at the L4 5 level with mass effect on the thecal sac. The patient has what seems to be Girdle muscle weakness for which I'm going to send him for an EMG and nerve conduction test, also I recommended that he sees a neurologist for this problem. For his pain we can do lumbar epidural steroid injection at the L4 5 level under fluoroscopic guidance but I wanted to see the results of the EMG before I do this injection on him. He is to continue using tramadol that he gets from his primary care physician for his pain. His blood pressure reading was high today and he needs to follow up with his primary care physician about this problem.
== END | disposition home or self-care (01) ==
LOC: PNWHC3 13:31
PROVIDERS: ATTEND Anesthesiology
DX: M51.26 Other intervertebral disc displacement, lumbar region (principal); N17.9 Acute kidney failure, unspecified; I10 Essential (primary) hypertension; F41.9 Anxiety disorder, unspecified; F31.9 Bipolar disorder, unspecified; Z87.891 Personal history of nicotine dependence; Z79.1 Long term (current) use of non-steroidal anti-inflammatories (NSAID); Z79.891 Long term (current) use of opiate analgesic; Z79.82 Long term (current) use of aspirin; Z88.8 Allergy status to other drugs, medicaments and biological substances
CPT/HCPCS: 99211

== ENCOUNTER → 2017-10-01 | Outpatient (CLI) | payer OTHER ==
[2017-10-01 12:25] VITALS: BP 145/93; PULSE 67; RESP 18
--- NOTE | 2017-10-01 12:57 | P.PN ---
Progress Note - Text Progress Note Date: 10/01/17 Patient returns for followup for chronic back pain with radiation to LLE >RLE. Patient was seen in June by Dr. Spaulding, who ordered EMG and wanted to schedule LESI for him given disc herniation on MRI at L4-L5. Patient continues on tramadol medications for pain from PCP with some relief. Patient denies adverse drug effects from medications. Today, pt denies new-onset weakness, bowel/bladder incontinence, or any other signs or symptoms of cauda equina syndrome. There are no signs of acute intoxication, and no indications of medication diversion or overuse. In addition to above, 13-point review of systems is also negative for chest pain , shortness of breath, changes in vision, changes in hearing, new onset weakness , abdominal pain, diarrhea, extreme fatigue, malaise, fever, skin changes, homicidal or suicidal ideation, or bowel or bladder incontinence. Vital Signs: Reviewed in EMR Gen: WDWN, AAOx3, NAD HEENT: NCAT, EOMI, hearing grossly normal Pulm: resp unlabored Abd: soft, NT, ND Neck: supple, trachea midline ROM in flexion lumbar spine: reduced ROM in extension lumbar spine: reduced Lumbar paravertebral tenderness: + Facet loading: neg SI joint tenderness: + L side Loco's test: + L side Straight leg raise: +LLE at 15 degrees Lower extremity: decreased sensation to pinprick LLE Neuro: CN II-XII grossly intact, muscle strength lower extremities PRESERVED Imaging: Reviewed in EMR Assessment: 1. lumbar disc herniation 2. lumbar radiculitis 3. chronic pain syndrome Plan: 1. Explanation: Opioid and psychological risk scores were reviewed. Diagnoses , prognoses, and multiple treatment options including but not limited to physical therapy, interventional therapies, adjuvant medical therapies, narcotic medication therapies, and surgery were discussed with the patient and all questions were answered to the patient's satisfaction. 2. Opioid agreement: no opioids prescribed today 3. Counseling: The patient was counseled extensively on BODY MASS INDEX, EXERCISE. Specifically, the patient was instructed regarding the importance of weight control, and exercise in the context of both chronic pain and overall health. 4. Procedures: LESI series L4-L5 5. Consultations: None 6. Investigations: None 7. Medications: Mobic 15 mg #30 with two refills, Biomed cream #7 with refill 8. Disposition: f/u for procedure in 6 weeks after EMG completed (for eval of girdle weakness) PQRS measures: 1-Patient's medications are documented in the chart. 2-Tobacco use is negative 3-Patient has not had a pneumococcal vaccine. 4-Advanced care planning discussed, patient unable to give. 5-Opioid contract NOT signed with the patient. 6-Pain positive, follow-up visit or procedure scheduled 7-Patient's blood pressure measured and documented, and patient will follow up with the primary care due to hypertension. 8-Patient's weight was measured, and body mass index ABOVE the normal limits, and counseling was done. Patient instructed to follow up with PCP. 9-Patient WAS NOT identified as an unhealthy alcohol user.
== END | disposition home or self-care (01) ==
LOC: PNWHC3 11:59
PROVIDERS: ATTEND Anesthesiology
DX: G89.4 Chronic pain syndrome (principal); M51.16 Intervertebral disc disorders with radiculopathy, lumbar region; Z79.891 Long term (current) use of opiate analgesic
CPT/HCPCS: 99211

== ENCOUNTER 2017-11-18 06:15 | Day surgery (SDC) | payer OTHER ==
[2017-11-15 08:55] VITALS: BMI 32.1
[~2017-11-18 06:15] MED LIST: LACTATED RINGERS 1,000 ML IV SCH
[2017-11-18] MEDS ORDERED: LIDOCAINE 1% 20 ML VIAL (10MG/ML) FOR IV START INTRADERMA ONE (06:41)
--- NOTE | 2017-11-18 07:16 | P.PCN ---
Date of Procedure: 11/18/17 [employer]sman #1: Alana Spaulding Description of Procedure: PREOPERATIVE DIAGNOSIS: 1-Lumbar radiculopathy POSTOPERATIVE DIAGNOSIS: 1-Lumbar radiculopathy PROCEDURE 1. Lumbar epidural steroid injection under fluoroscopic guidance at the L4-L5 level,#2. 2. Lumbar epidurogram. ANESTHESIA: Local with 1% lidocaine; moderate conscious sedation with IV sedation with Versed/fentanyl. EBL: Minimal PROCEDURE INDICATION: The patient with low back pain and radiculitis symptoms unresponsive to conservative treatment, no use of blood thinners. Fluoroscopy was used to optimize visualization of the needle placement and to maximize safety. PROCEDURE DESCRIPTION / TECHNIQUE: The patient was seen and identified in the preoperative area. Risks, benefits, complications, and alternatives were discussed with the patient, including but not limited to bleeding, infection, nerve damage, allergic reactions to medications, and incomplete pain relief. The patient agreed to proceed with the procedure and signed the consent after all questions were answered. IV was started, and vital signs were stable. Patient was taken to the OR and time out was completed to confirm patient position, procedure, laterality of pain, and allergies. The patient was placed in the prone position on procedure table and a pillow was placed under the abdomen to reduce lumbar lordosis. The lumbosacral area was prepped and draped in the usual sterile fashion. Critical pause was taken. Vital signs were closely monitored during the procedure. Conscious sedation was used during the procedure to decrease patients anxiety. Using anterior-posterior fluoroscopy, the L4-L5 interlaminar space was identified and the skin over this site was marked and then infiltrated with 1% lidocaine subcutaneously in a left paramedian fashion. Subsequently, a 20-gauge 3.5-inch Tuohy epidural needle was inserted and advanced toward the epidural space using the Loss of resistance technique and guided by AP and lateral fluoroscopy in the left paramedian approach. The correct needle position in the epidural space was verified with the injection of 2 mL of the water soluble contrast dye Isovue 200 contrast and observing an excellent epidurogram with the epidural spread of the dye, after negative aspiration for blood and CSF and in the absence of paresthesias. Again after negative aspiration, a 6 ml mixture containing 40 mg of Depo Medrol and 2 ml of preservative free Normal Saline, and 2 ml of preservative free lidocaine 1% solution was injected and a washout of epidurogram was seen. Needle was withdrawn intact, skin was cleansed, and bandages were applied. COMPLICATIONS: None
[2017-11-18] MEDS ORDERED: IV FLUID CONTINUATION 700 ML IV ONE (07:24)
[2017-11-18 07:34] VITALS: RESP 18
[2017-11-18 07:47] VITALS: BP 112/68; PULSE 64
--- NOTE | 2017-11-18 08:19 | FL ---
Fluoroscopy HISTORY: Pain 4 seconds fluoroscopy time supplied to the referring clinician. 2 intraoperative C-arm images docume nt the procedure. See dictated report from anesthesia.
== END 2017-11-18 08:09 | disposition home or self-care (01) ==
LOC: ORPAIN 06:15
PROVIDERS: ATTEND Anesthesiology
DX: M54.16 Radiculopathy, lumbar region (principal); Z88.8 Allergy status to other drugs, medicaments and biological substances; Z91.048 Other nonmedicinal substance allergy status
CPT/HCPCS: 62323; J2250; J1030; J3010; Q9966

== ENCOUNTER 2017-12-11 07:36 | Day surgery (SDC) | payer OTHER ==
[2017-12-05 08:35] VITALS: BMI 32.1
[2017-12-11 07:51] VITALS: TEMP 98.3
[2017-12-11] MEDS ORDERED: LACTATED RINGERS 1,000 ML IV SCH (08:00)
--- NOTE | 2017-12-11 08:41 | P.PCN ---
Date of Procedure: 12/11/17 Surgeon: Michele Maria Pathology: none sent Condition: stable Disposition: PACU Description of Procedure: PREOPERATIVE DIAGNOSIS: 1-Lumbar radiculitis. POSTOPERATIVE DIAGNOSIS: 1-Lumbar radiculitis. PROCEDURE 1. Lumbar epidural steroid injection under fluoroscopic guidance at the L5-S1 level. 2. Lumbar epidurogram. ANESTHESIA: Local with 1% lidocaine; IV sedation with Versed/fentanyl. EBL: Minimal PROCEDURE INDICATION: The patient with low back pain and radiculitis symptoms unresponsive to conservative treatment, no use of blood thinners. Fluoroscopy was used to optimize visualization of the needle placement and to maximize safety. PROCEDURE DESCRIPTION / TECHNIQUE: The patient was seen and identified in the preoperative area. Risks, benefits, complications, and alternatives were discussed with the patient, including but not limited to bleeding, infection, nerve damage, allergic reactions to medications, and incomplete pain relief. The patient agreed to proceed with the procedure and signed the consent after all questions were answered. IV was started, and vital signs were stable. Patient was taken to the OR and time out was completed to confirm patient position, procedure, laterality of pain, and allergies. The patient was placed in the prone position on procedure table and a pillow was placed under the abdomen to reduce lumbar lordosis. The lumbosacral area was prepped and draped in the usual sterile fashion. Critical pause was taken. Vital signs were closely monitored during the procedure. Conscious sedation was used during the procedure to decrease patients anxiety. Using anterior-posterior fluoroscopy, the L5-S1 interlaminar space was identified and the skin over this site was marked and then infiltrated with 1% lidocaine subcutaneously in a right paramedian fashion. Subsequently, a 20- gauge 3.5-inch Tuohy epidural needle was inserted and advanced toward the epidural space using the Loss of resistance technique and guided by AP and lateral fluoroscopy. The correct needle position in the epidural space was verified with the injection of 2 mL of the water soluble contrast dye Isovue 200 contrast and observing an excellent epidurogram with the epidural spread of the dye, after negative aspiration for blood and CSF and in the absence of paresthesias. Again after negative aspiration, a 6 ml mixture containing 40 mg of Depo Medrol and 2 ml of preservative free Normal Saline, and 2 ml of preservative free lidocaine 1% solution was injected and a washout of epidurogram was seen. Needle was withdrawn intact, skin was cleansed, and bandages were applied. COMPLICATIONS: None COMMENTS: DISPOSITION / PLANS: The patient was placed in a supine position and transferred to the recovery area in a stable condition for observation. There was no evidence of lower extremity motor or sensory deficit after the procedure. Patient was discharged from the recovery room after meeting discharge criteria. Home discharge instructions were given to the patient by the staff. The patient was reexamined prior to discharge and there were no issues. The patient will schedule a follow up in 4-6 weeks.
[2017-12-11 08:48] VITALS: RESP 16
--- NOTE | 2017-12-11 08:54 | FL ---
EXAMINATION TYPE: FL guided pain mgmt statistic DATE OF EXAM: 12/11/2017 HISTORY: Pain Lumbar epidural injection. Dr. Maria. 5 sec fluoro. 3 images saved.
[2017-12-11] MEDS ORDERED: IV FLUID CONTINUATION 1,000 ML IV ONE (09:03)
[2017-12-11 09:25] VITALS: BP 108/71; PULSE 57
== END 2017-12-11 09:39 | disposition home or self-care (01) ==
LOC: ORPAIN 07:36
PROVIDERS: ATTEND Anesthesiology
DX: M54.16 Radiculopathy, lumbar region (principal); Z88.8 Allergy status to other drugs, medicaments and biological substances
CPT/HCPCS: 62323; J1030; Q9966

== ENCOUNTER → 2017-12-23 | Outpatient (CLI) | payer OTHER ==
[2017-12-23 15:17] VITALS: BP 135/93; PULSE 59; RESP 16
--- NOTE | 2017-12-23 15:51 | P.PAINPG ---
Subjective Progress Note Date: 12/23/17 This is a follow-up visit for this 47 years old male with a history of severe and chronic low back pain with radiation to the lower extremity bilaterally, diagnosed with lumbar radiculitis and lumbar herniated disc disease, status post lumbar epidural steroid injections 3, he reported that he had 2 days of pain relief after the first injection and after that he never felt any relief from the second or third injection, his intensity of the pain is 8/10 and increases with any activity, he denies any fever or night sweats. Denies any change in the bowel movement or urination, and the intensity of the pain interfering with his quality of life, he continued to take her Motrin and Ultram for pain relief he denies any side effect of the medication Objective - Vital Signs Vital signs: Vital Signs Temp Pulse 59 L 12/23/17 15:14 Resp 16 12/23/17 15:14 BP 135/93 12/23/17 15:14 Pulse Ox 95 12/23/17 15:14 Intake & Output 12/22/17 12/23/17 12/23/17 18:59 06:59 18:59 Weight 117.934 kg - Exam Physical Examinations : 1-Constitutiona : Cooperative , not in acute distress . 2-HEENT : nech ; supple , no Lymphadenopathy , normal thyroid size . eyes : no ptosis , no icterus , no photophobia . ENT : normal of hearing , normal oropharynx , no Thrush . 3- Respiratory : Chest clear to auscultations Bilaterally , no wheezing , no Rhonchi . 4- Cardiovascular : regular rate and rhythem , S1 , S2 , no S3 , no S4. 5- Gastrointestinal : abdomen soft no tenderness , bowel sounds , no organomegally . 6- Genitourinary : Defferred . 7- neurologic : Cranial nerve II to XII intact , no focal neurological deffecit . 8-psychatric : alert , oriented X 3 , appropriate affect , intact judgment and insight . 9-Lymphatic : no Lymphadenopathy . 10- musculoskeltal : , Lumber spine = normal moter stegnth lower extremities ,thigh and legs .5/5 deep tendon reflexes : normal Knee Jerk , normal ankle Jerk . lumber facet Loading Test negative bilaterally strait leg raising test positive at 60 degree Right , positve at 30 degree Left Fabere test positive Right and positive Left Assessment and Plan Plan: Assessment and plan= lumbar radiculitis, lumbar disc herniation Patient had no benefit after lumbar epidural steroid injection done mostly different occasions. Recommend continue Motrin 800 mg every 8 hours when necessary, continue Ultram 50 mg every 8 hours when necessary Patient could benefit from Neurontin 300 mg daily at bedtime increased to twice a day after the She'll referred to see the spine surgeon for evaluation for possible surgical intervention Time with Patient: Less than 30 PQRS Measure Charge Sheet Measure #130: Documentation of Current Meds in Medical Chart: Patient's medications documented in chart Measure #226: Tobacco Use: Screen & Cessation Intervention: Pt not a tobacco user Measure #111: Pneumonia Vaccination: Pneumococcal vaccine NOT administered or previously given Measure #47: Advance Care Plan: Advance care planning discussed & documented, plan or surrogate given Measure #412: Opioid Treatment Agreement: No documentation of signed opioid treatment agreement Measure #408: Opioid Therapy Follow-up Evaluation: Patient had NO f/u eval minimum every 3 months during opioid therapy Measure #317: Preventitive Care & Scrn High Bld Press & F/U: Normal blood pressure, f/u not required Measure #128: Body Mass Index (BMI) Screening & Follow-up: BMI documented ABOVE normal parameters - f/u documented Measure #131: Pain Assessment & Follow-up: Pain positive & plan documented, Follow-up PRN Measure #431: Unhealthy Alcohol Use Preventative Care & Scrn: Patient not identified as an unhealthy alcohol user PQRS Narrative: Smoking Status Former smoker Do You Want the Pneumonia No Vaccine AT THIS TIME? Blood Pressure 135/93 Pain Intensity [Lower Back] 8 Scale Used Numeric (1 - 10) Hx Alcohol Use (MH) No Home Medications: Ambulatory Orders Aspirin 81 mg PO DAILY #30 chewable 10/26/16 Propranolol [Inderal] 40 mg PO BID #60 tab 10/26/16 ALPRAZolam [Xanax] 0.25 mg PO BID PRN #15 tab 02/26/17 Omeprazole 20 mg PO DAILY #20 capsule. 02/26/17 Ibuprofen [Motrin] 600 mg PO Q6HR PRN #40 day 05/31/17 Meclizine [Antivert] 25 mg PO BID PRN 05/31/17 traMADol HCL [Ultram] 50 mg PO BID 05/31/17 Ascorbic Acid [Vitamin C] 500 mg PO DAILY 11/15/17 Cholecalciferol [Vitamin D3] 1,000 unit PO DAILY 11/15/17 Controlled Substance Measures - Controlled Substance Measures Is patient prescribed a controlled substance at discharge?: No When asked, does pt state using other controlled substances?: No If prescribed controlled substance>3 days was MAPS reviewed?: No If Rx opioid, was Start Talking consent form obtained?: No If opioid is for acute pain is fill amount 7 days or less?: No Was information provided regarding opioid addiction?: No
== END | disposition home or self-care (01) ==
LOC: PNWHC3 14:26
PROVIDERS: ATTEND Specialist
DX: G89.29 Other chronic pain (principal); M51.16 Intervertebral disc disorders with radiculopathy, lumbar region; Z79.1 Long term (current) use of non-steroidal anti-inflammatories (NSAID); Z79.891 Long term (current) use of opiate analgesic; Z79.82 Long term (current) use of aspirin; Z79.899 Other long term (current) drug therapy
CPT/HCPCS: 99211

== ENCOUNTER 2018-01-27 05:26 | Emergency (ER) | payer OTHER ==
--- NOTE | 2018-01-27 06:08 | XR ---
EXAMINATION TYPE: XR femur RT DATE OF EXAM: 01/27/2018 COMPARISON: NONE HISTORY: Leg pain TECHNIQUE: 4 views FINDINGS: There is moderate narrowing of the hip joint space. There is some narrowing of the medial j oint space of the knee. There is acetabular spurring. I see no fracture nor dislocation. There is spu rring of the femoral head. IMPRESSION: Osteoarthritic changes. No fracture seen.
[2018-01-27] MEDS ORDERED: KETOROLAC 30 MG/ML 1 ML VIAL IM STA (07:17)
--- NOTE | 2018-01-27 07:21 | ED ---
Lower Extremity Injury HPI - General Chief Complaint: Extremity Injury, Lower Stated Complaint: leg/hip pain Time Seen by Provider: 01/27/18 05:40 Source: patient Mode of arrival: ambulatory Limitations: no limitations - History of Present Illness Initial Comments: 37 years old gentleman complaining about the right hip pain and right femur pain he said this is ongoing but now is worse he denies any fall no bike accident no car accident no other trauma he is able to bear weight. Review of system is unremarkable otherwise - Related Data Home Medications Medication Instructions Recorded Confirmed Meclizine [Antivert] 25 mg PO BID PRN 05/31/17 12/23/17 traMADol HCL [Ultram] 50 mg PO BID 05/31/17 12/23/17 Ascorbic Acid [Vitamin C] 500 mg PO DAILY 11/15/17 12/23/17 Cholecalciferol [Vitamin D3] 1,000 unit PO DAILY 11/15/17 12/23/17 Gabapentin [Neurontin] 300 mg PO BID 12/23/17 12/23/17 Previous Rx's Medication Instructions Recorded Aspirin 81 mg PO DAILY #30 chewable 10/26/16 Propranolol [Inderal] 40 mg PO BID #60 tab 10/26/16 ALPRAZolam [Xanax] 0.25 mg PO BID PRN #15 tab 02/26/17 Omeprazole 20 mg PO DAILY #20 capsule. 02/26/17 Ibuprofen [Motrin] 600 mg PO Q6HR PRN #40 day 05/31/17 Allergies Allergy/AdvReac Type Severity Reaction Status Date / Time caffeine AdvReac SHAKING Verified 01/27/18 05:36 clonazepam [From Klonopin] AdvReac shaking Verified 01/27/18 05:36 ziprasidone [From Geodon] AdvReac Unknown Verified 01/27/18 05:37 Review of Systems ROS Statement: Those systems with pertinent positive or pertinent negative responses have been documented in the HPI. ROS Other: All systems not noted in ROS Statement are negative. Past Medical History Past Medical History: Hypertension, Musculoskeletal Disorder, Renal Disease Additional Past Medical History / Comment(s): Lipoma on back; Hx of being on dialysis IN 2016 History of Any Multi-Drug Resistant Organisms: None Reported Past Surgical History: Back Surgery Additional Past Surgical History / Comment(s): cyst removed from throat; pain procedure in [place], EPIDURAL INJECTIONS Past Anesthesia/Blood Transfusion Reactions: No Reported Reaction Past Psychological History: Anxiety, Bipolar, Schizophrenia Smoking Status: Former smoker Past Alcohol Use History: None Reported Past Drug Use History: None Reported - Past Family History Mother Family Medical History: No Reported History General Exam - General Exam Comments Initial Comments: General: The patient is awake and alert, in no distress, and does not appear acutely ill. Skin: Skin is warm and dry and no rashes or lesions are noted. Eye: Pupils are equal, round and reactive to light, extra-ocular movements are intact; there is normal conjunctiva bilaterally. Ears, nose, mouth and throat: There are moist mucous membranes and no oral lesions. Neck: The neck is supple, there is no tenderness or JVD. Cardiovascular: There is a regular rate and rhythm. No murmur, rub or gallop is appreciated. Respiratory: To auscultation bilateral, no wheezing no rhonchi no distress respiratory snow noticed Gastrointestinal: Soft, non-distended, non-tender abdomen without masses or organomegaly noted. There is no rebound or guarding present. Bowel sounds are unremarkable. Back: There is no tenderness to palpation in the midline. There is no obvious deformity. Musculoskeletal: Is tender over the right greater trochanter area also tender over the mid thigh no hematoma noticed no cellulitis noticed distal right lower extremity exam is unremarkable. Refills are within normal range no motor or sensory deficits noticed Neurological: CN II-XII intact, Cranial nerves III through XII are intact. There are no obvious motor or sensory deficits. Coordination appears grossly intact. Speech is normal. Psychiatric: Cooperative, appropriate mood & affect, normal judgment. Limitations: no limitations Course Vital Signs 01/27/18 05:32 Temperature 98.4 F Pulse Rate 79 Respiratory 18 Rate Blood Pressure 139/102 O2 Sat by Pulse 98 Oximetry X-ray of the right hip and the femur did not reveal any pathological findings did notice some osteoarthritis these findings were discussed with the patient cannot give him a Toradol 30 mg intramuscular he was advised to use Tylenol 1 g by mouth every 8 when necessary and follow-up with her family doctor he agrees with Disposition Clinical Impression: Osteoarthritis of left hip Disposition: HOME SELF-CARE Condition: Good Instructions: Osteoarthritis (ED) Is patient prescribed a controlled substance at d/c from ED?: No Referrals: Doris Mckeon MD [Primary Care Provider] - 1-2 days
[2018-01-27 07:35] VITALS: BP 139/94; PULSE 74; RESP 16; TEMP 97.9
== END 2018-01-27 07:33 | disposition home or self-care (01) ==
LOC: EC 05:26
DX: M16.12 Unilateral primary osteoarthritis, left hip (principal); Z87.891 Personal history of nicotine dependence; Z99.2 Dependence on renal dialysis; Z79.899 Other long term (current) drug therapy; Z88.8 Allergy status to other drugs, medicaments and biological substances
CPT/HCPCS: 73552; 99283; 96372; J1885

== ENCOUNTER → 2018-03-25 | Outpatient (CLI) | payer OTHER ==
[2018-03-25 11:56] LABS: Basophils # (A) 0.1 k/uL (0-0.2); Basophils % (A) 1 %; Eosinophils # (A) 0.3 k/uL (0-0.7); Eosinophils % (A) 5 %; HCT 41.4 % (39.0-53.0); HGB 12.9 gm/dL (13.0-17.5); Hypochromasia Moderate; Lymphocytes # (A) 1.9 k/uL (1.0-4.8); Lymphocytes % (A) 40 %; MCH 27.5 pg (25.0-35.0); MCHC 31.2 g/dL (31.0-37.0); MCV 88.2 fL (80.0-100.0); Mean Platelet Volume 7.8; Monocytes # (A) 0.2 k/uL (0-1.0); Monocytes % (A) 5 %; Neutrophils # (A) 2.2 k/uL (1.3-7.7); Neutrophils % (A) 47 %; Platelet Count 238 k/uL (150-450); Poikilocytosis Slight; RDW 13.8 % (11.5-15.5); WBC 4.7 k/uL (3.8-10.6)
[2018-03-25 12:08] LABS: ALT 25 U/L (21-72); AST 23 U/L (17-59); Albumin 4.6 g/dL (3.5-5.0); Alkaline Phosphatase 55 U/L (38-126); Anion Gap 12 mmol/L; Blood Urea Nitrogen 14 mg/dL (9-20); Calcium 9.9 mg/dL (8.4-10.2); Carbon Dioxide 24 mmol/L (22-30); Chloride 106 mmol/L (98-107); Glucose 95 mg/dL (74-99); Potassium 4.3 mmol/L (3.5-5.1); Sodium 142 mmol/L (137-145); Total Bilirubin 1.3 mg/dL (0.2-1.3); Total Protein 7.4 g/dL (6.3-8.2)
[2018-03-25 12:09] LABS: Prothrombin Time 10.2 sec (9.0-12.0)
== END ==
LOC: LABPAT 11:27
PROVIDERS: ATTEND Orthopaedic Surgery
DX: Z01.818 Encounter for other preprocedural examination (principal); Z01.812 Encounter for preprocedural laboratory examination
CPT/HCPCS: 36415; 80053; 85025; 85610; 87070

== ENCOUNTER 2018-03-31 05:57 | Inpatient (IN) | payer OTHER ==
[2018-03-24 14:20] VITALS: BMI 30.8
--- NOTE | 2018-03-30 13:27 | HP ---
HISTORY AND PHYSICAL REASON FOR ADMISSION: 03/31/2018 Perez Gleason is a 48-year-old patient seen with symptomatic right hip osteoarthritis. We discussed treatment options. He elected to proceed with direct anterior right total hip arthroplasty. Consent regarding the procedure was obtained. Medical clearance was provided by Dr. Mckeon. PAST MEDICAL HISTORY: Depression. PAST SURGICAL HISTORY: Noncontributory. MEDICATIONS: Amitriptyline, propranolol, tramadol, Wellbutrin, Xanax. ALLERGIES: CAFFEINE. SOCIAL HISTORY: Patient denies current tobacco use. PHYSICAL EXAMINATION: Physical evaluation of the right hip, there is diffuse tenderness. Limited range of motion with severe pain. Positive impingement sign. His right lower extremity approximately 1 cm shorter than the left. Straight leg raise is negative. Distal neurovascular exam is intact. RADIOGRAPHS: Which were obtained of the right hip revealed severe osteoarthritic changes. IMPRESSION: 1. Right hip osteoarthritis. 2. Depression. PLAN: Direct anterior right total hip arthroplasty. Surgery 03/31/2018. MMODL / IJN: [id number] /
[~2018-03-31 05:57] MED LIST changes: +ACETAMINOPHEN TAB 500 MG TAB PO ONE; +HYDROmorphone 0.5 MG/0.5 ML SYRINGE IVP PRN; +LIDOCAINE 1% 20 ML VIAL (10MG/ML) FOR IV START INTRADERMA PRN; +MELOXICAM 7.5 MG TAB PO ONE; +ONDANSETRON 4 MG/2 ML VIAL IVP ONE; +TRANEXAMIC ACID 1,000 MG in SODIUM CHLORIDE 0.9% 50 ML IVPB ONE; +ceFAZolin IN SWFI 2 GM/20 ML SYRINGE IVP ONE
[2018-03-31] MEDS ORDERED: fentaNYL (PF) 50 MCG/ML 2 ML AMP ONE (07:20)
[2018-03-31] MEDS ORDERED: MIDAZOLAM 2 MG/2 ML VIAL ONE (07:20)
[2018-03-31] MEDS ORDERED: HYDROmorphone (PF) 1 MG/ML ONE (07:20)
[2018-03-31] MEDS ORDERED: PROPOFOL 10 MG/ML 20 ML VIAL IV ONE (07:20)
[2018-03-31] MEDS ORDERED: LIDOCAINE 1% INJ 10MG/ML (20 ML MDV) ONE (07:20)
[2018-03-31] MEDS ORDERED: SODIUM CHLORIDE 0.9% 100 ML BAG ONE (07:20)
[2018-03-31] MEDS ORDERED: ePHEDrine SULFATE/0.9% NACL/PF 50 MG/5 ML SYRINGE IV ONE (07:20)
[2018-03-31] MEDS ORDERED: TRANEXAMIC ACID 1,000 MG/10 ML VIAL ONE (07:20)
[2018-03-31] MEDS ORDERED: SUCCINYLCHOLINE CHLORIDE 100 MG/5 ML SYR IV ONE (07:20)
[2018-03-31] MEDS ORDERED: ROPIVACAINE 246.25 MG, EPINEPHrine 0.5 MG, KETOROLAC 30 MG, cloNIDine HCL/PF 80 MCG, WA... MISCELLANE ONE ×5 (07:25)
[2018-03-31] MEDS ORDERED: ceFAZolin 3,000 MG in SODIUM CHLORIDE 0.9% IRRIGATIO 3,000 ML IRRIGATION ONE (07:42)
[2018-03-31] MEDS ORDERED: LACTATED RINGERS 1,000 ML IV ONE (08:23)
[2018-03-31] MEDS ORDERED: HYDROcodone/APAP 7.5-325MG 1 EACH TAB PO PRN (09:01)
[2018-03-31] MEDS ORDERED: hydrOXYzine PAMOATE 25 MG CAP PO PRN (09:01)
[2018-03-31] MEDS ORDERED: ONDANSETRON 4 MG/2 ML VIAL IVP PRN (09:01)
[2018-03-31] MEDS ORDERED: NALOXONE 0.4 MG/ML 1 ML VIAL IV PRN (09:01)
[2018-03-31] MEDS ORDERED: HYDROmorphone 1 MG/ML 1 ML SYRINGE IVP PRN ×2 (09:01)
--- NOTE | 2018-03-31 09:01 | P.OP ---
Date of Procedure: 03/31/18 Preoperative Diagnosis: Right hip osteoarthritis Postoperative Diagnosis: Right hip osteoarthritis Procedure(s) Performed: Direct anterior right total hip arthroplasty Implants: 1. Depuy Corail KA size 12 standard collar press-fit femoral stem 2. Depuy pinnacle 60 mm press-fit acetabular shell 3. Depuy pinnacle polyethylene acetabular liner neutral 36 mm ID 60 mm OD 4. Biolox delta ceramic femoral head plus 07/[birth year]/1935 millimeter Anesthesia: GETA, local Surgeon: Aram Isabel Design Drafter Chief #1: Zackary Noel Estimated Blood Loss (ml): 200 Pathology: other (Femoral head) Condition: stable Disposition: PACU Indications for Procedure: 48-year-old patient seen with symptomatic right hip osteoarthritis. After having treatment options discussed, he elected to proceed with total hip arthroplasty. Operative Findings: see description of procedure Description of Procedure: The patient was taken to the operative suite. Patient underwent a general anesthetic by the department of anesthesia. Patient was then transferred to the [place] table. Patient was given preoperative IV antibiotics and TXA. Both lower extremities were placed in standard leg spars. The hip was then prepped and draped in the normal sterile orthopedic fashion. A standard anterior incision was made beginning 3 cm lateral and 1 cm distal to the ASIS extending 10 cm. Dissection was then carried down through the subcutaneous soft tissues down to the fascia overlying the tensor fascia tona. An incision was now made through the fascia. Careful dissection was taken down exposing the tensor fascia tona muscle. A Cobra retractor was now placed along the medial femoral neck and a second one along the lateral femoral neck. The venous circumflex vessels were now identified, cauterized and clipped. We identified the anterior hip capsule. An incision was made through the hip capsule along the lateral border. I performed a partial anterior capsulectomy. Retractors were now placed around the femoral neck itself. A femoral neck cut was now made with a sagittal saw. It was completed with an osteotome at the lateral neck area. The femoral head was now removed without difficulty. The extremity was now rotated to 45 of external rotation. It was locked in position. Residual labrum was now debrided out. Serial reaming was performed of the acetabulum while Mark ACKERMAN assisted holding an anterior retractor for exposure. Once we reached the appropriate size and a trial was position and fit nicely. The appropriate size was now chosen opened and made available. It was introduced into the acetabulum without difficulty. The C-arm/fluoroscopy was now brought into the operative field. We made sure we had a true AP pelvic view. We now under direct C-arm/fluoroscopy introduced into the acetabular component with appropriate version and inclination. I held the cup in appropriate position well Mark ACKERMAN used a mallet to seat the acetabular component. I noted the component now to be well seated and stable. Acetabular cup introduce her was removed. The C-arm was pulled back. An appropriate liner was introduced and clicked into position. It was felt to be stable. At this point retractors were removed. The extremity was now placed into 120 external rotation with no traction. The leg was now dropped to the ground and adducted. Appropriate retractors were now positioned along the proximal femur. We also placed our femoral look into position. Additional capsular releasing was performed to gain access to the proximal femur. We now used a box osteotome. A canal finder was now utilized. Serial broaching was now performed with the assistance of Mark ACKERMAN tapping the broaches down with a mallet while held the broach in appropriate rotation and position. This was done until we reached the appropriate size with good overall rotational stability. Appropriate calcar planing was performed. A trial head/neck was placed into position. The hip was now reduced. The C-arm/fluoroscopy was brought back into the operative field. A spot film was obtained of the nonoperative hip. A spot film was obtained of the trial components. Overlays were performed, we noted good overall alignment and positioning for determining leg length. The C- arm/fluoroscopy was pulled back. Retractors were repositioned and the hip was dislocated. The leg was again taken down to the ground and adducted. Appropriate retractors were repositioned as well as the femoral hook. All trial components were removed. The femoral implant was opened along with the femoral head. The femoral implant was introduced on the appropriate handle into our pre-broached area. I held the component position well Mark ACKERMAN used a mallet to seat the femoral component. The femoral component was now noted to be well seated and stable.. The femoral head was introduced with good positioning and fixation noted. Retractors were now removed. The hip was now reduced. There appeared be good positioning of the hip confirmed on intraoperative fluoroscopy. Spot films were obtained to document this. A second gram of TXA was given. The deep and superficial soft tissues were infiltrated with local analgesic. Bipolar cautery had been utilized intermittently through the procedure for hemostasis. The wound was irrigated copiously with pulse lavage mechanical irrigation. The fascia was repaired with Vicryl suture. The subcutaneous soft tissues were repaired in layers with Vicryl suture. The skin was approximated with pernio/Dermabond. Sterile dressings were applied. Patient was then awakened, transferred to a bed and taken to recovery in stable condition. Mark ACKERMAN assisted with the complex procedure.
[2018-03-31] MEDS: LACTATED RINGERS 1,000 ML IV SCH ×2 (11:20→21:23)
[2018-03-31] MEDS: HYDROcodone/APAP 7.5-325MG 1 EACH TAB PO PRN ×2 (11:31→18:25)
--- NOTE | 2018-03-31 12:03 | FL ---
EXAMINATION TYPE: FL guidance operating room, XR Hip Limited RT DATE OF EXAM: 03/31/2018 CLINICAL HISTORY: Advanced osteoarthritis right hip. TECHNIQUE: Fluoroscopy. Limited intraoperative views right hip. COMPARISON: Right femur x-ray January 27, 2018.. FINDINGS: Fluoroscopic guidance was provided during hip replacement procedure performed by Dr. Nneka vasquez. A total of 26 seconds of fluoroscopic time was utilized during the procedure and single spot i ntraoperative image is acquired. Single image acquired shows metallic hardware from total right hip arthroplasty is satisfactory in po sition on frontal projection. IMPRESSION: As Above.
[2018-03-31] MEDS ORDERED: MECLIZINE 25 MG TAB PO PRN (13:13)
[2018-03-31] MEDS ORDERED: ALPRAZolam 0.25 MG TAB PO PRN (13:13)
--- NOTE | 2018-03-31 13:15 | P.CONS ---
History of Present Illness - Reason for Consult Consult date: 03/31/18 hypertension Requesting physician: Aram Isabel - Chief Complaint hip pain - History of Present Illness Patient is a 40-year-old -[place] male with a past medical history of hypertension, chronic low back pain, dyslipidemia, and GERD who presented to the hospital for elective right total hip arthroplasty. He underwent surgery without any immediate postoperative complications. We are asked to consult for hypertensive management. Patient seen and examined at bedside. He is having some sleepiness after receiving anesthesia. He denies any chest pain or shortness of breath. He is not feeling nauseous. He is concerned with who will villalobos pain medications on discharge. He reports that he underwent replacement after having had pain for 2 years. His pain was so severe that he was walking with a walker at home and requiring Marshall. He is also going to undergo pain pump placement for his back. He denies any recent cough, cold, fever, flu, nausea, vomiting, or shortness of breath. He has been in his normal state of health and has not had any recent medication changes. Review of Systems Pertinent positives and negatives as discussed in HPI, a complete review of systems was performed and all other systems are negative. 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 Anemia, obesity, GERD, depression, schizophrenia, lumbar radiculopathy History of Any Multi-Drug Resistant Organisms: None Reported Past Surgical History: Back Surgery Additional Past Surgical History / Comment(s): cyst removed from throat; pain procedure in [place], EPIDURAL INJECTIONS Past Anesthesia/Blood Transfusion Reactions: No Reported Reaction Smoking Status: Former smoker Past Alcohol Use History: None Reported Past Drug Use History: None Reported Additional History: Lives with and children. Was using a walker prior to admission and chronic pain medications. - Past Family History Mother Family Medical History: Myocardial Infarction (MS) (age 55) Medications and Allergies Home Medications Medication Instructions Recorded Confirmed Type Aspirin 81 mg PO DAILY #30 chewable 10/26/16 03/31/18 Rx Propranolol [Inderal] 40 mg PO BID #60 tab 10/26/16 03/31/18 Rx ALPRAZolam [Xanax] 0.25 mg PO BID PRN #15 tab 02/26/17 03/31/18 Rx Omeprazole 20 mg PO DAILY #20 capsule. 02/26/17 03/31/18 Rx Ibuprofen [Motrin] 600 mg PO Q6HR PRN #40 day 05/31/17 03/31/18 Rx Meclizine [Antivert] 25 mg PO BID PRN 05/31/17 03/31/18 History traMADol HCL [Ultram] 50 mg PO BID 05/31/17 03/31/18 History Ascorbic Acid [Vitamin C] 500 mg PO DAILY 11/15/17 03/31/18 History Cholecalciferol [Vitamin D3] 1,000 unit PO DAILY 11/15/17 03/31/18 History Gabapentin [Neurontin] 300 mg PO BID 12/23/17 03/31/18 History HYDROcodone/APAP 7.5-325MG [Marshall 1 tab PO BID 03/24/18 03/31/18 History 7.5-325] Acetaminophen [Tylenol] 325 mg PO Q4H 03/31/18 03/31/18 History Allergies Allergy/AdvReac Type Severity Reaction Status Date / Time caffeine AdvReac SHAKING Verified 03/31/18 10:38 clonazepam [From Klonopin] AdvReac shaking Verified 03/31/18 10:38 ziprasidone [From Geodon] AdvReac Unknown Verified 03/31/18 10:38 Physical Exam Osteopathic Statement: *. No significant issues noted on an osteopathic structural exam other than those noted in the History and Physical/Consult. Vitals: Vital Signs Temp Pulse Resp BP Pulse Ox 03/31/18 11:45 46 L 118/77 100 03/31/18 11:30 52 L 114/76 100 03/31/18 11:15 51 L 114/73 100 03/31/18 11:00 60 124/82 100 03/31/18 10:45 50 L 115/49 100 03/31/18 10:30 49 L 124/85 100 03/31/18 10:15 57 L 16 124/88 100 03/31/18 10:00 97.8 F 63 16 117/79 100 03/31/18 09:42 52 L 16 112/78 99 03/31/18 09:27 55 L 16 110/67 99 03/31/18 09:13 97.7 F 69 16 133/75 96 03/31/18 06:29 98.3 F 79 16 130/89 100 Intake and Output 03/30/18 03/31/18 03/31/18 22:59 06:59 14:59 Intake Total 400 901 Output Total 200 Balance 400 701 Intake: IV 400 901 Output: Estimated Blood Loss 200 General: non toxic, No distress, appears at stated age, Obese Derm: no unusual rashes/lesions no unusual ecchymoses, warm, dry Head: atraumatic, normocephalic, symmetric Eyes: EOMI, no lid lag, anicteric sclera, pupils equal round reactive to light ENT: Nose and ears atraumatic, no thrush, no pharyngeal erythema Neck: No thyromegaly, no cervical lymphadenopathy, trachea midline, supple Mouth: no lip lesion, mucus membranes moist Cardiovascular: S1S2 reg, no murmur, positive posterior tibial pulse bilateral, no edema, capillary refill less than 2 seconds Lungs: CTA bilateral, no rhonchi, no rales , no accessory muscle use Abdominal: soft, nontender to palpation, no guarding, no appreciable organomegaly, normal bowel sounds Ext: no gross muscle atrophy, muscle strength 5 out of 5 in b/l upper extremities grossly, no contractures, Neuro: CN II-XI grossly intact, finger to nose within normal limits, Psych: Alert, oriented, flat affect Assessment and Plan Assessment: Osteoarthritis -Status post right total hip arthroplasty -Management per orthopedics -Pain control -PT/OT Hypertension, controlled -Resume home propranolol -Follow blood pressures Chronic pain -Currently with Dilaudid and Marshall -We will need to follow-up with pain specialist as outpatient Radiculopathy -Neurontin History of schizophrenia -Continue with patient's Xanax DVT prophylaxis: lovenox Discussed with: Patient, nursing Anticipated discharge place: home with home health A total of 45 minutes was spent on the care of this complex patient more than 50 % of the time was spent in counseling and care coordination. Thank you for allowing us to participate in the care of this patient. Do not hesitate to contact us with questions. Someone can be reached from the [facility] hospitalist group at all hours of the day at [phone]. Surrogate Decision maker:
[2018-03-31] MEDS: traMADol 50 MG TAB PO SCH ×3 (14:27→23:28)
[2018-03-31] MEDS: ceFAZolin IN SWFI 2 GM/20 ML SYRINGE IVP SCH (15:28)
[2018-03-31] MEDS: HYDROmorphone 1 MG/ML 1 ML SYRINGE IVP PRN (15:47)
[2018-03-31] MEDS: PROPRANOLOL 40 MG TAB PO SCH (21:22)
[2018-03-31] MEDS: SENNOSIDES-DOCUSATE SODIUM 1 EACH TAB PO SCH (21:22)
[2018-04-01] MEDS: ceFAZolin IN SWFI 2 GM/20 ML SYRINGE IVP SCH (00:23)
[2018-04-01] MEDS: HYDROcodone/APAP 7.5-325MG 1 EACH TAB PO PRN ×4 (00:23→19:29)
[2018-04-01] MEDS: HYDROmorphone 1 MG/ML 1 ML SYRINGE IVP PRN ×2 (04:35→09:52)
[2018-04-01] MEDS: LACTATED RINGERS 1,000 ML IV SCH (06:23)
[2018-04-01] MEDS ORDERED: PANTOPRAZOLE 40 MG TABLET PO SCH (07:30)
[2018-04-01 08:00] LABS: Basophils % (A) 1 %; Eosinophils # (A) 0.2 k/uL (0-0.7); Eosinophils % (A) 2 %; HCT 31.7 % (39.0-53.0); Hypochromasia Marked; Lymphocytes # (A) 1.8 k/uL (1.0-4.8); Lymphocytes % (A) 27 %; MCH 28.4 pg (25.0-35.0); MCHC 31.6 g/dL (31.0-37.0); MCV 89.9 fL (80.0-100.0); Mean Platelet Volume 7.3; Monocytes # (A) 0.5 k/uL (0-1.0); Monocytes % (A) 7 %; Neutrophils # (A) 4.2 k/uL (1.3-7.7); Neutrophils % (A) 62 %; Platelet Count 165 k/uL (150-450); Poikilocytosis Slight; RBC 3.52 m/uL (4.30-5.90); RDW 13.8 % (11.5-15.5); WBC 6.8 k/uL (3.8-10.6)
--- NOTE | 2018-04-01 08:18 | P.PN ---
Subjective Progress Note Date: 04/01/18 Principal diagnosis: Right hip pain Patient was seen and examined. No acute events overnight. Patient reports right hip pain, 5-6 out of 10 in severity. Patient reports body aches, started this morning. He denies any fever, chills, nausea, vomiting, cough, chest pain , shortness of breath or palpitations. Patient reports a bowel movement this morning. Patient reports no changes in urination. States he is currently seeing his PCP in order to obtain an epidural pump for his chronic lower back pain. He will also need his left hip replaced in the future. Objective - Vital Signs Vital signs: Vital Signs Temp 98.2 F 04/01/18 07:00 Pulse 75 04/01/18 07:00 Resp 16 04/01/18 07:00 BP 101/65 04/01/18 07:00 Pulse Ox 100 04/01/18 07:00 Intake & Output 03/31/18 04/01/18 04/01/18 18:59 06:59 18:59 Intake Total 1181 800 Output Total 700 300 Balance 481 500 Weight 108.862 kg Intake: IV 901 Intake, IV Titration 800 Amount Lactated Ringers 1,000 ml 800 @ 100 mls/hr IV .Q10H [facility] Rx#:[id number] Oral 280 Output: Urine 500 300 Estimated Blood Loss 200 Other: Voiding Method Toilet # Voids 1 1 - Exam General: [non toxic], [no distress], [appears at stated age] Derm: [warm], [dry] Head: [atraumatic], [normocephalic], [symmetric] Eyes: [EOMI], [no lid lag], [anicteric sclera] Mouth: [no lip lesion], [mucus membranes moist] Cardiovascular: [S1S2 reg], [no murmur], [2+ DP pulses BL] Lungs: [CTA bilateral], [no rhonchi, no rales] , [no accessory muscle use] Abdominal: [soft], [ nontender to palpation], [no guarding], [no appreciable organomegaly] Ext: [no gross muscle atrophy], [no edema], [R hip TTP, dressings intact without strikethrough - limited ROM due to pain] Neuro: [ CN II-XI grossly intact], [no focal neuro deficits] Psych: [Alert], [oriented], [appropriate affect] - Labs CBC & Chem 7: 04/01/18 06:46 Labs: Abnormal Lab Results - Last 24 Hours (Table) 04/01/18 Range/Units 06:46 RBC 3.52 L (4.30-5.90) m/uL Hgb 10.0 L D (13.0-17.5) gm/dL Hct 31.7 L (39.0-53.0) % Assessment and Plan Assessment: Assessment and Plan 1. R hip arthroplasty: POD2. Orthopedic Sx on board. Pain management with Minong 7.5 mg PO 2 tab Q6H PRN and Dilaudid 0.5 mg Q3H IV for breakthrough. Mobic 7.5 mg PO QD scheduled, DC'd Tramadol. Bowel regimen with Senokot-S 2 tab PO QHS. s/ p Cefazolin 2g IV x 2. Weight bearing as per Ortho recommendations. FU CBC, PT/ OT, Orthopedic Sx 2. Myalgias: Post Sx and anesthesia. FU CPK, PT/OT 3. HTN: BP 101/65 well controlled. Continue Propranolol 40 mg PO BID. Monitor vitals, adjust medication as necessary. 4. Radiculopathy and Chronic pain: Recommend Minong on DC as patient was on it at home. Has taken 1 mg of IV Dilaudid and 60 mg of Minong in the last 24H = 65 mg of daily Minong equivalent. Continue Gabapentin 300 mg PO BID and Mobic. Will need pain management outpatient FU. FU PT/OT 5. DVT/GI Prophlaxis: Lovenox 40 mg SUBCUT QD. Pepcid 20 mg PO QD.
[2018-04-01] MEDS: GABAPENTIN 300 MG CAP PO SCH ×2 (09:48→20:31)
[2018-04-01] MEDS: ASCORBIC ACID 500 MG TAB PO SCH (09:48)
[2018-04-01] MEDS: FAMOTIDINE 20 MG TAB PO SCH (09:49)
[2018-04-01] MEDS: MELOXICAM 7.5 MG TAB PO SCH (09:49)
[2018-04-01] MEDS: PROPRANOLOL 40 MG TAB PO SCH ×2 (09:50→20:34)
[2018-04-01] MEDS: ENOXAPARIN 40 MG/0.4 ML SYRINGE SQ SCH (09:50)
--- NOTE | 2018-04-01 10:44 | P.PN ---
Subjective Progress Note Date: 04/01/18 Principal diagnosis: Status post right total hip arthroplasty Patient seen today resting in his hospital bed, he appears comfortable. Has been up ambulating. He denies any chest pain or shortness of breath. Objective - Vital Signs Vital signs: Vital Signs Temp 98.2 F 04/01/18 07:00 Pulse 75 04/01/18 07:00 Resp 16 04/01/18 07:00 BP 101/65 04/01/18 07:00 Pulse Ox 100 04/01/18 07:00 Intake & Output 03/31/18 04/01/18 04/01/18 18:59 06:59 18:59 Intake Total 1181 800 120 Output Total 700 300 Balance 481 500 120 Weight 108.862 kg Intake: IV 901 Intake, IV Titration 800 Amount Lactated Ringers 1,000 ml 800 @ 100 mls/hr IV .Q10H [facility] Rx#:[id number] Oral 280 120 Output: Urine 500 300 Estimated Blood Loss 200 Other: Voiding Method Toilet # Voids 1 1 - Exam Right lower extremity: Incision is clean, dry, and intact. The prineo tape is in good condition. There is minimal soft tissue swelling and ecchymosis surrounding the medial and lateral aspects of the incision. Calf is soft, no tenderness with palpation. Plantar flexion, dorsiflexion, EHL, FHL are intact. Sensory exam to light touch throughout the extremity is intact, dorsal pedis pulses 2+. - Labs CBC & Chem 7: 04/01/18 06:46 Labs: Abnormal Lab Results - Last 24 Hours (Table) 04/01/18 Range/Units 06:46 RBC 3.52 L (4.30-5.90) m/uL Hgb 10.0 L D (13.0-17.5) gm/dL Hct 31.7 L (39.0-53.0) % Assessment and Plan Plan: Assessment: Postoperative day 1 status post right total hip arthroplasty Plan: Pain control, continue oral medication GI and DVT prophylaxis, continue Lovenox during inpatient stay, likely discharged on aspirin 325 mg twice a day Daily dressing changes/ice the hip Continue work with physical therapy Encourage incentive spirometer Medical recommendations Discharge planning: Patient will be discharged home tomorrow Time with Patient: Less than 30
[2018-04-01] MEDS ORDERED: SODIUM CHLORIDE 0.9% 1,000 ML IV ONE (12:15)
[2018-04-01] MEDS: SODIUM CHLORIDE 0.9% 1,000 ML IV SCH (16:46)
[2018-04-01] MEDS: SENNOSIDES-DOCUSATE SODIUM 1 EACH TAB PO SCH (20:31)
[2018-04-02] MEDS: SODIUM CHLORIDE 0.9% 1,000 ML IV SCH ×2 (00:04→11:02)
[2018-04-02] MEDS: HYDROcodone/APAP 7.5-325MG 1 EACH TAB PO PRN (02:36)
[2018-04-02] MEDS ORDERED: HYDROcodone/APAP 10-325MG 1 EACH TAB PO PRN (07:44)
[2018-04-02 07:46] VITALS: RESP 12; TEMP 98.6
[2018-04-02 07:46] LABS: HCT 27.8 % (39.0-53.0); HGB 8.8 gm/dL (13.0-17.5); Hypochromasia Moderate; MCH 28.4 pg (25.0-35.0); MCHC 31.6 g/dL (31.0-37.0); MCV 89.8 fL (80.0-100.0); Mean Platelet Volume 7.5; Platelet Count 132 k/uL (150-450); Poikilocytosis Slight; RDW 13.7 % (11.5-15.5)
--- NOTE | 2018-04-02 07:49 | P.PN ---
Subjective Progress Note Date: 04/02/18 Principal diagnosis: Right hip arthroplasty Patient was seen and examined. No acute events overnight. Patient appears comfortable getting out of bed, turning around and sitting down in his chair. Patient reports improved hip pain. Received 6 tablets of [place]and 7.5, and 1.5 mg of IV Dilaudid. Patient requesting to go home. Objective - Vital Signs Vital signs: Vital Signs Temp 98.8 F 04/02/18 01:12 Pulse 77 04/02/18 01:12 Resp 16 04/02/18 01:12 BP 102/65 04/02/18 01:12 Pulse Ox 100 04/02/18 01:12 Intake & Output 04/01/18 04/02/18 04/02/18 18:59 06:59 18:59 Intake Total 655 600 Output Total 650 Balance 655 -50 Intake: Intake, IV Titration 600 Amount Sodium Chloride 0.9% 1, 600 000 ml @ 100 mls/hr IV . Q10H [facility] Rx#:[id number] Oral 655 Output: Urine 650 Other: Voiding Method Toilet # Voids 1 2 - Exam General: [non toxic], [no distress], [appears at stated age] Derm: [warm], [dry] Head: [atraumatic], [normocephalic], [symmetric] Eyes: [EOMI], [no lid lag], [anicteric sclera] Mouth: [no lip lesion], [mucus membranes moist] Cardiovascular: [S1S2 reg], [no murmur], [2+ DP pulses BL] Lungs: [CTA bilateral], [no rhonchi, no rales] , [no accessory muscle use] Abdominal: [soft], [ nontender to palpation], [no guarding], [no appreciable organomegaly] Ext: [no gross muscle atrophy], [no edema], [R hip TTP, dressings intact without strikethrough - limited ROM due to pain] Neuro: [ CN II-XI grossly intact], [no focal neuro deficits] Psych: [Alert], [oriented], [appropriate affect] - Labs CBC & Chem 7: 04/01/18 06:46 Labs: Abnormal Lab Results - Last 24 Hours (Table) 04/01/18 04/01/18 Range/Units 06:46 06:48 RBC 3.52 L (4.30-5.90) m/uL Hgb 10.0 L D (13.0-17.5) gm/dL Hct 31.7 L (39.0-53.0) % Creatine Kinase 2622 H* (55-170) U/L Assessment and Plan Assessment: Assessment and Plan Assessment and Plan 1. Rhabdomyolysis: Likely from Sx and anesthesia. CPK 2622. Given 1L bolus and NC 100 cc/h. FU CPK, BMP 2. R hip arthroplasty: POD2. Orthopedic Sx on board. Pain management - DC Dilaudid and increase Gro[place]and to 10. Mobic 7.5 mg PO QD scheduled, DC'd Tramadol. Bowel regimen with Senokot-S 2 tab PO QHS. s/p Cefazolin 2g IV x 2. Weight bearing as per Ortho recommendations. FU PT/OT, Orthopedic Sx 3. Anemia: Hg 10 Hct 31.7 MCP 89.9 likely acute blood loss from Sx, expected to increase. FU CBC in the AM 4. HTN: BP 101/65 well controlled. Continue Propranolol 40 mg PO BID. Monitor vitals, adjust medication as necessary. 5. Radiculopathy and Chronic pain: Recommend Groveland on DC as patient was on it at home. Has taken 1.5 mg of IV Dilaudid and 45 mg of [place] in the last 24H = 52.5 mg of daily [place] equivalent. Continue Gabapentin 300 mg PO BID and Mobic. Will need pain management outpatient FU. FU PT/OT 6. DVT/GI Prophlaxis: Lovenox 40 mg SUBCUT QD. Pepcid 20 mg PO QD. Hopeful discharge today pending CBC and CPK, Orthopedic follow-up.
[2018-04-02] MEDS: PROPRANOLOL 40 MG TAB PO SCH (08:42)
[2018-04-02] MEDS ORDERED: BENZOCAINE/MENTHOL LOZENG 1 EACH LOZENGE MUCOUS MEM PRN (08:46)
[2018-04-02] MEDS: ENOXAPARIN 40 MG/0.4 ML SYRINGE SQ SCH (08:50)
[2018-04-02] MEDS: MELOXICAM 7.5 MG TAB PO SCH (08:51)
[2018-04-02] MEDS: GABAPENTIN 300 MG CAP PO SCH (08:51)
[2018-04-02] MEDS: FAMOTIDINE 20 MG TAB PO SCH (08:51)
[2018-04-02] MEDS: ASCORBIC ACID 500 MG TAB PO SCH (08:51)
[2018-04-02 09:51] LABS: Anion Gap 7 mmol/L; Blood Urea Nitrogen 7 mg/dL (9-20); Calcium 8.5 mg/dL (8.4-10.2); Carbon Dioxide 25 mmol/L (22-30); Chloride 107 mmol/L (98-107); Glucose 99 mg/dL (74-99); Potassium 4.1 mmol/L (3.5-5.1); Sodium 139 mmol/L (137-145)
--- NOTE | 2018-04-02 10:33 | P.PN ---
Subjective Progress Note Date: 04/02/18 Principal diagnosis: Status post right total hip arthroplasty Patient seen today resting in his hospital bed, he appears comfortable. Has been up ambulating. He denies any chest pain or shortness of breath. Objective - Vital Signs Vital signs: Vital Signs Temp 98.6 F 04/02/18 07:00 Pulse 92 04/02/18 07:00 Resp 12 04/02/18 07:00 BP 104/67 04/02/18 07:00 Pulse Ox 99 04/02/18 07:00 Intake & Output 04/01/18 04/02/18 04/02/18 18:59 06:59 18:59 Intake Total 655 600 Output Total 650 Balance 655 -50 Intake: Intake, IV Titration 600 Amount Sodium Chloride 0.9% 1, 600 000 ml @ 100 mls/hr IV . Q10H [facility] Rx#:[id number] Oral 655 Output: Urine 650 Other: Voiding Method Toilet # Voids 1 2 - Exam Right lower extremity: Incision is clean, dry, and intact. The prineo tape is in good condition. There is minimal soft tissue swelling and ecchymosis surrounding the medial and lateral aspects of the incision. Calf is soft, no tenderness with palpation. Plantar flexion, dorsiflexion, EHL, FHL are intact. Sensory exam to light touch throughout the extremity is intact, dorsal pedis pulses 2+. - Labs CBC & Chem 7: 04/02/18 06:26 04/02/18 06:26 Labs: Abnormal Lab Results - Last 24 Hours (Table) 04/01/18 04/02/18 04/02/18 Range/Units 06:48 06:26 06:26 RBC 3.10 L (4.30-5.90) m/uL Hgb 8.8 L (13.0-17.5) gm/dL Hct 27.8 L (39.0-53.0) % Plt Count 132 L (150-450) k/uL BUN (9-20) mg/dL Creatine Kinase 2622 H* 2292 H* (55-170) U/L 04/02/18 Range/Units 06:26 RBC (4.30-5.90) m/uL Hgb (13.0-17.5) gm/dL Hct (39.0-53.0) % Plt Count (150-450) k/uL BUN 7 L (9-20) mg/dL Creatine Kinase (55-170) U/L Assessment and Plan Plan: Assessment: Postoperative day 2 status post right total hip arthroplasty Acute blood loss anemia Plan: Pain control, we'll discharge home on oral medication GI and DVT prophylaxis, discharged home on aspirin 325 mg twice a day Daily dressing changes/ice the hip Continue work with physical therapy Encourage incentive spirometer Medical recommendations Discharge planning: Patient will be discharged home today Time with Patient: Less than 30
--- NOTE | 2018-04-02 10:38 | P.DS ---
Providers Date of admission: 03/31/18 05:57 Expected date of discharge: 04/02/18 Attending physician: Aram Quintanilla Consults: 03/31/18 09:01 Consult Physician Routine Consulting Provider: Doris Mckeon Consult Reason/Comments: Medical management Do you want consulting provider notified?: Yes Primary care physician: Doris Mckeon MD Hospital Course: Date of admission: 03/31/2018 Date of discharge: 04/02/2018 Admission diagnosis: Status post right total hip arthroplasty Discharge diagnosis: Same Attending physician: Dr. quintanilla Surgical procedures: Right total knee arthroplasty Brief history: Patient is a 48-year-old male with a history of progressive primary right hip osteoarthritis. At this point patient has failed conservative treatment measures and has opted to proceed with a elective right total hip arthroplasty. Hospital course: Details of patient's surgery can be found in operative report. Patient tolerated the procedure well and was subsequently transported to orthopedic floor. Patient's orthopeidc and medical care was provided daily. Patient had daily laboratory tests performed for evaluation of overall blood counts. Patient had daily physical therapy to include strengthening range of motion as well as education with walker ambulation. Patient was treated with Lovenox for their postoperative DVT prophylaxis during their inpatient stay. Patient was noted to have a relatively uneventful postoperative course. Patient reported satisfactory pain control with oral pain medications by postoperative day 0. Patient showed satisfactory progress with physical therapy. Patient moved steadily through the program and had no difficulty meeting the goals by postoperative day 2. Given patient's otherwise satisfactory course and having met physical therapy goals, plan is to discharge patient home on postoperative day 2. Discharge condition/disposition: Patient will be discharged home in stable condition. Discharge medications: Instructions are given on resumption of patient's normal daily medications per primary care recommendation, in addition patient will be prescribed Mead 10 mg/325 mg, aspirin 325 mg, ferrous sulfate 325 mg. Discharge instructions: 1. Wound care and infection precautions, keep incision dry and covered while showering], no lotions, creams, moisturizers. No soaking, tubs, pools, hottubs. Do not scrub over the incision. 2. Weight-bear [as tolerated] with walker / cane until follow-up. 3. Ice and elevate when necessary. Do not exceed 20 minutes per hour with ice pack. 4. Utilize compression sleeve until seen at first follow up appointment. 5. Visiting nursing care. 6. Home physical therapy. 7. Pain meds and anticoagulants per prescription. 8. Pain medication has potential to cause constipation. Increase oral fluid and fiber intake. Contact primary care provider if you have not had a bowel movement within 48 hours after discharge 9. No anti-inflammatory medication until discussed at first post operative visit, this including Motrin, Aleve, Mobic, Diclofenac. 10. Follow up in office at 2 weeks postop with Mark Noel PA-C 11. Follow up with your primary care doctor 7-10 days after discharge. 12. Contact [facility] with any questions, . Procedures: Right total hip arthroplasty Patient Condition at Discharge: Good Plan - Discharge Summary Discharge Rx Participant: Yes New Discharge Prescriptions: New Aspirin 325 mg PO BID #60 tab Docusate [Colace] 100 mg PO DAILY #30 capsule Ferrous Sulfate [Feosol] 325 mg PO DAILY #30 tab Hydrocodone/Acetaminophen [Mead 10-325] 1 - 2 each PO Q6H PRN #56 tab PRN Reason: Pain No Action Propranolol [Inderal] 40 mg PO BID #60 tab ALPRAZolam [Xanax] 0.25 mg PO BID PRN #15 tab PRN Reason: Anxiety Omeprazole 20 mg PO DAILY #20 capsule. Meclizine [Antivert] 25 mg PO BID PRN PRN Reason: Vertigo Cholecalciferol [Vitamin D3] 1,000 unit PO DAILY Ascorbic Acid [Vitamin C] 500 mg PO DAILY Gabapentin [Neurontin] 300 mg PO BID Acetaminophen [Tylenol] 325 mg PO Q4H Discharge Medication List Propranolol [Inderal] 40 mg PO BID #60 tab 10/26/16 [Rx] ALPRAZolam [Xanax] 0.25 mg PO BID PRN #15 tab 02/26/17 [Rx] Omeprazole 20 mg PO DAILY #20 capsule. 02/26/17 [Rx] Meclizine [Antivert] 25 mg PO BID PRN 05/31/17 [History] Ascorbic Acid [Vitamin C] 500 mg PO DAILY 11/15/17 [History] Cholecalciferol [Vitamin D3] 1,000 unit PO DAILY 11/15/17 [History] Gabapentin [Neurontin] 300 mg PO BID 12/23/17 [History] Acetaminophen [Tylenol] 325 mg PO Q4H 03/31/18 [History] Aspirin 325 mg PO BID #60 tab 04/02/18 [Rx] Docusate [Colace] 100 mg PO DAILY #30 capsule 04/02/18 [Rx] Ferrous Sulfate [Feosol] 325 mg PO DAILY #30 tab 04/02/18 [Rx] Hydrocodone/Acetaminophen [Mead 10-325] 1 - 2 each PO Q6H PRN #56 tab 04/02/18 [Rx] Follow up Appointment(s)/Referral(s): Zackary Noel PAC [PHYSICIAN QUALITY CONTROL MICROBIOLOGY SUPERVISOR] - 2 Weeks Ambulatory/Diagnostic Orders: Complete Blood Count w/diff [LAB.AMB] Time Frame: 1 Week, Location: None Selected Activity/Diet/Wound Care/Special Instructions: Orthopedic Discharge Instructions: 1. Wound care and infection precautions, keep incision dry and covered while showering, no lotions, creams, moisturizers. No soaking, pools, hot tubs. Do not scrub over incision. 2. Weight-bear as tolerated with walker / cane until follow-up. 3. Ice and elevate when necessary. Do not exceed 20 minutes per hour with ice pack. 4. Utilize compression sleeve until seen at first follow up appointment. 5. Pain meds and anticoagulants per prescription. 6. Pain medication has potential to cause constipation. Increase oral fluid and fiber intake. Contact primary care provider if you have not had a bowel movement within 48 hours after discharge. 7. No anti-inflammatory medication until discussed at first post operative visit, this including Motrin, Aleve, Mobic, Diclofenac. 8. Follow up in office at 2 weeks postop with Mark Noel PA-C 9. Follow up with your primary care doctor 7-10 days after discharge. 10. Contact [facility] with any questions, . Discharge Disposition: HOME WITH HOME HEALTH SERVICES
[2018-04-02 12:42] LABS: HCT 28.5 % (39.0-53.0); HGB 8.9 gm/dL (13.0-17.5); Hypochromasia Marked; MCH 27.9 pg (25.0-35.0); MCHC 31.1 g/dL (31.0-37.0); MCV 89.6 fL (80.0-100.0); Mean Platelet Volume 7.7; Platelet Count 145 k/uL (150-450); RBC 3.18 m/uL (4.30-5.90); RDW 13.6 % (11.5-15.5); WBC 5.8 k/uL (3.8-10.6)
[2018-04-02 15:42] VITALS: BP 100/61; PULSE 96
== END 2018-04-02 17:40 | disposition home health service (06) | DRG 470 ==
LOC: 2ORMAIN 05:57 → 3SUR 09:12
PROVIDERS: ADMIT Orthopaedic Surgery; ATTEND Orthopaedic Surgery
PROC: 0SR904A Replacement of Right Hip Joint with Ceramic on Polyethylene Synthetic Substitute, Uncemented, Open Approach (ICD-10-PCS; principal; 2018-03-31 07:30)
DX: M16.11 Unilateral primary osteoarthritis, right hip (principal); D62 Acute posthemorrhagic anemia; M62.82 Rhabdomyolysis; E78.5 Hyperlipidemia, unspecified; F20.9 Schizophrenia, unspecified; F32.9 Major depressive disorder, single episode, unspecified; G89.29 Other chronic pain; I10 Essential (primary) hypertension; K21.9 Gastro-esophageal reflux disease without esophagitis; M54.10 Radiculopathy, site unspecified; Z79.82 Long term (current) use of aspirin; Z82.49 Family history of ischemic heart disease and other diseases of the circulatory system; Z87.891 Personal history of nicotine dependence; Z79.899 Other long term (current) drug therapy; Z91.018 Allergy to other foods; Z88.8 Allergy status to other drugs, medicaments and biological substances
CPT/HCPCS: 73501; 80048; 82550; 85025; 85027; 86850; 86900; 86901; 88300

== ENCOUNTER 2018-04-17 08:40 | Emergency (ER) | payer OTHER ==
[2018-04-17] MEDS ORDERED: LIDOCAINE URO-JET JELLY 2% 5 ML KIT URETHRAL ONE (09:10)
[2018-04-17] MEDS ORDERED: LORazepam 2 MG/ML INJ IV STA (09:10)
--- NOTE | 2018-04-17 09:23 | ED ---
General Adult HPI - General Chief complaint: Urogenital Stated complaint: Urinary retention Time Seen by Provider: 04/17/18 08:42 Source: patient, RN notes reviewed Mode of arrival: ambulatory Limitations: no limitations - History of Present Illness Initial comments: This a 48-year-old male presents emergency Department chief complaint of urinary retention. Patient states that he has not urinated since 10 AM yesterday. Patient states that yesterday he received morphine injection by Dr. Bright to see if he can tolerate morphine pump. 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 Patient had right hip replacement 2 weeks ago. Patient states never had any issues urinating. Patient denies any bowel incontinence. Patient states that he does have pressure that he needs to urinate he has had a few dribbles out. Patient does have a long-standing history of degenerative disc disease and lumbar issues. He cannot remember the last time he had any imaging of his lumbar spine. - Related Data Home Medications Medication Instructions Recorded Confirmed Meclizine [Antivert] 25 mg PO BID PRN 05/31/17 04/17/18 Ascorbic Acid [Vitamin C] 500 mg PO DAILY 11/15/17 04/17/18 Cholecalciferol [Vitamin D3] 1,000 unit PO DAILY 11/15/17 04/17/18 Gabapentin [Neurontin] 300 mg PO BID 12/23/17 04/17/18 Acetaminophen [Tylenol] 325 mg PO Q4H 03/31/18 04/17/18 Previous Rx's Medication Instructions Recorded Propranolol [Inderal] 40 mg PO BID #60 tab 10/26/16 ALPRAZolam [Xanax] 0.25 mg PO BID PRN #15 tab 02/26/17 Omeprazole 20 mg PO DAILY #20 capsule. 02/26/17 Aspirin 325 mg PO BID #60 tab 04/02/18 Docusate [Colace] 100 mg PO DAILY #30 capsule 04/02/18 Ferrous Sulfate [Feosol] 325 mg PO DAILY #30 tab 04/02/18 Hydrocodone/Acetaminophen [[place] 1 - 2 each PO Q6H PRN #56 tab 04/02/18 10-325] Tamsulosin [Flomax] 0.4 mg PO DAILY #7 cap 04/17/18 Allergies Allergy/AdvReac Type Severity Reaction Status Date / Time caffeine AdvReac SHAKING Verified 04/17/18 09:04 clonazepam [From Klonopin] AdvReac shaking Verified 04/17/18 09:04 ziprasidone [From Geodon] AdvReac Unknown Verified 04/17/18 09:04 Review of Systems ROS Statement: Those systems with pertinent positive or pertinent negative responses have been documented in the HPI. ROS Other: All systems not noted in ROS Statement are negative. 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 Anemia, obesity, GERD, depression, schizophrenia, lumbar radiculopathy History of Any Multi-Drug Resistant Organisms: None Reported Past Surgical History: Back Surgery, Orthopedic Surgery Additional Past Surgical History / Comment(s): cyst removed from throat; pain procedure in [place], EPIDURAL INJECTIONS, right hip replacement Past Anesthesia/Blood Transfusion Reactions: No Reported Reaction Past Psychological History: Anxiety, Bipolar, Schizophrenia Smoking Status: Former smoker Past Alcohol Use History: None Reported Past Drug Use History: None Reported - Past Family History Mother Family Medical History: Myocardial Infarction (PR) General Exam Limitations: no limitations General appearance: alert, in no apparent distress Head exam: Present: atraumatic, normocephalic, normal inspection Neck exam: Present: normal inspection. Absent: tenderness, meningismus, lymphadenopathy Respiratory exam: Present: normal lung sounds bilaterally. Absent: respiratory distress, wheezes, rales, rhonchi, stridor Cardiovascular Exam: Present: regular rate, normal rhythm, normal heart sounds. Absent: systolic murmur, diastolic murmur, rubs, gallop, clicks GI/Abdominal exam: Present: soft, tenderness (Suprapubic), normal bowel sounds. Absent: distended, guarding, rebound, rigid Rectal exam: Present: normal inspection, normal rectal tone Extremities exam: Present: other (Normal sensation lower extremity normal pulses normal lower extremity reflexes) Neurological exam: Present: alert, oriented X3, CN II-XII intact, reflexes normal. Absent: motor sensory deficit Skin exam: Present: warm, dry, intact, normal color. Absent: rash Course Vital Signs 04/17/18 08:43 Temperature 97.9 F Pulse Rate 72 Respiratory 16 Rate Blood Pressure 109/59 O2 Sat by Pulse 99 Oximetry Medical Decision Making - Medical Decision Making 48-year-old male present emergency from for urinary retention. Patient did have evidence of greater than 1 L in his bladder on bladder scan. Adame was placed in did have relief. Patient has normal lower extremity strength neurovascular intact normal reflexes and normal rectal tone. Normal cremaster reflex. Patient most likely has urinary retention secondary to anesthesia medications given yesterday for his lumbar procedure. Patient will be discharged with Flomax Adame left in place and having taken out in 2-3 days. - Lab Data Result diagrams: 04/17/18 09:36 04/17/18 09:36 Lab Results 04/17/18 04/17/18 04/17/18 Range/Units 09:36 09:36 10:14 WBC 6.0 (3.8-10.6) k/uL RBC 3.75 L (4.30-5.90) m/uL Hgb 10.2 L (13.0-17.5) gm/dL Hct 33.7 L (39.0-53.0) % MCV 89.7 (80.0-100.0) fL MCH 27.3 (25.0-35.0) pg MCHC 30.4 L (31.0-37.0) g/dL RDW 14.9 (11.5-15.5) % Plt Count 374 D (150-450) k/uL Neutrophils % 62 % Lymphocytes % 28 % Monocytes % 4 % Eosinophils % 4 % Basophils % 1 % Neutrophils # 3.7 (1.3-7.7) k/uL Lymphocytes # 1.7 (1.0-4.8) k/uL Monocytes # 0.2 (0-1.0) k/uL Eosinophils # 0.3 (0-0.7) k/uL Basophils # 0.1 (0-0.2) k/uL Hypochromasia Marked Poikilocytosis Slight Sodium 137 (137-145) mmol/L Potassium 3.9 (3.5-5.1) mmol/L Chloride 103 (98-107) mmol/L Carbon Dioxide 23 (22-30) mmol/L Anion Gap 11 mmol/L BUN 15 (9-20) mg/dL Creatinine 0.84 (0.66-1.25) mg/dL Est GFR (CKD-EPI)AfAm >90 (>60 ml/min/1.73 sqM) Est GFR (CKD-EPI)NonAf >90 (>60 ml/min/1.73 sqM) Glucose 114 H (74-99) mg/dL Calcium 9.3 (8.4-10.2) mg/dL Total Bilirubin 0.8 (0.2-1.3) mg/dL AST 22 (17-59) U/L ALT 27 (21-72) U/L Alkaline Phosphatase 81 (38-126) U/L Total Protein 6.9 (6.3-8.2) g/dL Albumin 3.9 (3.5-5.0) g/dL Urine Color Light Yellow Urine Appearance Clear (Clear) Urine pH 6.0 (5.0-8.0) Ur Specific [place] 1.004 (1.001-1.035) Urine Protein Negative (Negative) Urine Glucose (UA) Negative (Negative) Urine Ketones Negative (Negative) Urine Blood Negative (Negative) Urine Nitrite Negative (Negative) Urine Bilirubin Negative (Negative) Urine Urobilinogen <2.0 (<2.0) mg/dL Ur Leukocyte Esterase Negative (Negative) Disposition Clinical Impression: Postprocedural urinary retention Disposition: HOME SELF-CARE Condition: Stable Instructions: Urinary Retention in Men (ED) Additional Instructions: Please return to the Emergency Department if symptoms worsen or any other concerns. Prescriptions: Tamsulosin [Flomax] 0.4 mg PO DAILY #7 cap Is patient prescribed a controlled substance at d/c from ED?: No Referrals: Doris Mckeon MD [Primary Care Provider] - 1-2 days Viktor Deleon MD [STAFF PHYSICIAN] - 1-2 days Time of Disposition: 11:43
[2018-04-17 09:57] LABS: Basophils # (A) 0.1 k/uL (0-0.2); Basophils % (A) 1 %; Eosinophils # (A) 0.3 k/uL (0-0.7); Eosinophils % (A) 4 %; HCT 33.7 % (39.0-53.0); HGB 10.2 gm/dL (13.0-17.5); Hypochromasia Marked; Lymphocytes # (A) 1.7 k/uL (1.0-4.8); Lymphocytes % (A) 28 %; MCH 27.3 pg (25.0-35.0); MCHC 30.4 g/dL (31.0-37.0); MCV 89.7 fL (80.0-100.0); Monocytes # (A) 0.2 k/uL (0-1.0); Monocytes % (A) 4 %; Neutrophils # (A) 3.7 k/uL (1.3-7.7); Neutrophils % (A) 62 %; Poikilocytosis Slight; RBC 3.75 m/uL (4.30-5.90); RDW 14.9 % (11.5-15.5)
[2018-04-17 10:09] LABS: ALT 27 U/L (21-72); AST 22 U/L (17-59); Albumin 3.9 g/dL (3.5-5.0); Alkaline Phosphatase 81 U/L (38-126); Anion Gap 11 mmol/L; Blood Urea Nitrogen 15 mg/dL (9-20); Calcium 9.3 mg/dL (8.4-10.2); Carbon Dioxide 23 mmol/L (22-30); Chloride 103 mmol/L (98-107); Glucose 114 mg/dL (74-99); Potassium 3.9 mmol/L (3.5-5.1); Sodium 137 mmol/L (137-145); Total Bilirubin 0.8 mg/dL (0.2-1.3); Total Protein 6.9 g/dL (6.3-8.2)
[2018-04-17 10:14] LABS: Platelet Count 374 k/uL (150-450)
[2018-04-17 10:54] LABS: Appearance,Urine Clear (Clear); Bilirubin,Urine Negative (Negative); Blood,Urine Negative (Negative); Color,Urine Light Yellow; Glucose,Urine (UA) Negative (Negative); Ketones,Urine Negative (Negative); Leukocyte Esterase,Urine Negative (Negative); Nitrite,Urine Negative (Negative); Protein,Urine Negative (Negative); Specific Gravity,Urine 1.004 (1.001-1.035); Urobilinogen,Urine <2.0 mg/dL (<2.0)
--- NOTE | 2018-04-17 11:23 | CT ---
EXAMINATION TYPE: CT lumbar spine w con DATE OF EXAM: 04/17/2018 COMPARISON: 01/28/2017 MRI lumbar spine HISTORY: difficulty urinating after spinal tap yesterday CT DLP: 1215 mGycm Automated exposure control for dose reduction was used. CONTRAST: CT scan of the lumbar is performed with IV Contrast, patient injected with 100 mL of Isovue 300. TECHNIQUE: Enhanced CT of the lumbar spine was performed. Bone and soft tissue window settings are s ubmitted as well as coronal and sagittal reconstructions. FINDINGS: Incidental note of slight hypoattenuation of the hepatic parenchyma in comparison to that o f the spleen suggests mild hepatic steatosis. The lumbar spine vertebral bodies maintain normal vertebral body heights and alignment. Multilevel di sc desiccation is noted. No acute fracture or dislocation is seen. L1-L2: Normal disc space height. No disc herniation protrusion or central stenosis. No facet joint arthropathy. No evidence for foraminal encroachment. L2-L3: Small broad-based disc bulge and minimal bilateral neural foraminal narrowing. No spinal canal stenosis. L3-L4: There is a peripherally calcified disc bulge and small central subligamentous disc protrusion/ herniation is seen resulting in mild spinal canal stenosis and mild bilateral neural foraminal narrow ing in combination with mild facet arthropathy. L4-L5: There is a suspected left paracentral disc herniation superimposed upon a broad-based disc bul ge that would be better characterized with MRI. There is mild bilateral neural foraminal narrowing an d mild spinal canal stenosis. L5-S1: Normal disc space height. No disc herniation protrusion or central stenosis. No facet joint arthropathy. No evidence for foraminal encroachment. IMPRESSION: 1. No discrete epidural or subdural high density to suggest subdural or epidural hematoma/hemorrhage. 2. Small central disc herniation at L3-L4 and suspected small left paracentral disc herniation at L4- L5 both creating mild spinal canal stenosis and mild bilateral neural foraminal narrowing. These coul d be confirmed with MRI.
[2018-04-17 12:32] VITALS: BP 140/86; PULSE 80; RESP 18; TEMP 98
== END 2018-04-17 12:30 | disposition home or self-care (01) ==
LOC: EC 08:40
DX: M96.89 Other intraoperative and postprocedural complications and disorders of the musculoskeletal system (principal); R33.9 Retention of urine, unspecified; M19.90 Unspecified osteoarthritis, unspecified site; Z87.39 Personal history of other diseases of the musculoskeletal system and connective tissue; Z96.641 Presence of right artificial hip joint; Z87.891 Personal history of nicotine dependence; Z99.2 Dependence on renal dialysis; Z79.899 Other long term (current) drug therapy; Z88.8 Allergy status to other drugs, medicaments and biological substances; Z91.018 Allergy to other foods; Z98.890 Other specified postprocedural states
CPT/HCPCS: 99284 ×2; 51702 ×2; 96374 ×2; 99283; 36415; 80053; 85025; 81003; 72132; J2060; Q9967

== ENCOUNTER 2018-04-17 15:59 | Emergency (ER) | payer OTHER ==
[2018-04-17 16:04] VITALS: BP 108/74; PULSE 63; RESP 18; TEMP 97.4
--- NOTE | 2018-04-17 16:22 | ED ---
Male Urogenital HPI - General Chief complaint: Urogenital Stated complaint: CATHETER PROBLEM Time Seen by Provider: 04/17/18 16:05 Source: patient, RN notes reviewed Mode of arrival: ambulatory Limitations: no limitations - History of Present Illness Initial comments: 48-year-old male presented to the emergency Department for difficulty with his Adame catheter. Patient was seen here earlier in emergency department for urinary retention. Patient had a Adame catheter placed secondary to urinary retention from anesthesia medications. Patient states that it pulled down and states that he noticed some blood and he states that he had some pain. Patient states he also was urinating around the Adame. Patient states that he wants a Adame catheter removed. - Related Data Home Medications Medication Instructions Recorded Confirmed Meclizine [Antivert] 25 mg PO BID PRN 05/31/17 04/17/18 Ascorbic Acid [Vitamin C] 500 mg PO DAILY 11/15/17 04/17/18 Cholecalciferol [Vitamin D3] 1,000 unit PO DAILY 11/15/17 04/17/18 Gabapentin [Neurontin] 300 mg PO BID 12/23/17 04/17/18 Acetaminophen [Tylenol] 325 mg PO Q4H 03/31/18 04/17/18 Hydrocodone/Acetaminophen [[place] 1 - 2 tab PO Q6H PRN 04/17/18 04/17/18 10-325] Previous Rx's Medication Instructions Recorded Propranolol [Inderal] 40 mg PO BID #60 tab 10/26/16 ALPRAZolam [Xanax] 0.25 mg PO BID PRN #15 tab 02/26/17 Omeprazole 20 mg PO DAILY #20 capsule. 02/26/17 Aspirin 325 mg PO BID #60 tab 04/02/18 Docusate [Colace] 100 mg PO DAILY #30 capsule 04/02/18 Ferrous Sulfate [Feosol] 325 mg PO DAILY #30 tab 04/02/18 Tamsulosin [Flomax] 0.4 mg PO DAILY #7 cap 04/17/18 Allergies Allergy/AdvReac Type Severity Reaction Status Date / Time caffeine AdvReac SHAKING Verified 04/17/18 16:11 clonazepam [From Klonopin] AdvReac shaking Verified 04/17/18 16:11 ziprasidone [From Geodon] AdvReac Unknown Verified 04/17/18 16:11 Review of Systems ROS Statement: Those systems with pertinent positive or pertinent negative responses have been documented in the HPI. ROS Other: All systems not noted in ROS Statement are negative. 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 Anemia, obesity, GERD, depression, schizophrenia, lumbar radiculopathy History of Any Multi-Drug Resistant Organisms: None Reported Past Surgical History: Back Surgery, Orthopedic Surgery Additional Past Surgical History / Comment(s): cyst removed from throat; pain procedure in [place], EPIDURAL INJECTIONS, right hip replacement Past Anesthesia/Blood Transfusion Reactions: No Reported Reaction Past Psychological History: Anxiety, Bipolar, Schizophrenia Smoking Status: Former smoker Past Alcohol Use History: None Reported Past Drug Use History: None Reported - Past Family History Mother Family Medical History: Myocardial Infarction (PR) General Exam Limitations: no limitations General appearance: alert, in no apparent distress Respiratory exam: Present: normal lung sounds bilaterally. Absent: respiratory distress, wheezes, rales, rhonchi, stridor Cardiovascular Exam: Present: regular rate, normal rhythm, normal heart sounds. Absent: systolic murmur, diastolic murmur, rubs, gallop, clicks exam: Absent: normal inspection (Adame catheter noted, urine noted around the Adame catheter) Course Vital Signs 04/17/18 16:01 Temperature 97.4 F L Pulse Rate 63 Respiratory 18 Rate Blood Pressure 108/74 O2 Sat by Pulse 100 Oximetry Medical Decision Making - Medical Decision Making 48-year-old male presented to have his Adame catheter removed. It did pulled out in the urethra. Patient was able to void after Adame catheter was removed. Patient will be discharged. Disposition Clinical Impression: Adame catheter problem Disposition: HOME SELF-CARE Condition: Stable Instructions: Adame Catheter Removal (DC) Additional Instructions: Please return to the Emergency Department if symptoms worsen or any other concerns. Is patient prescribed a controlled substance at d/c from ED?: No Referrals: Doris Mckeon MD [Primary Care Provider] - 1-2 days Time of Disposition: 16:22
== END 2018-04-17 16:27 | disposition home or self-care (01) ==
LOC: EC 15:59
DX: T83.83XA Hemorrhage due to genitourinary prosthetic devices, implants and grafts, initial encounter (principal); T83.84XA Pain due to genitourinary prosthetic devices, implants and grafts, initial encounter; M19.90 Unspecified osteoarthritis, unspecified site; F41.9 Anxiety disorder, unspecified; Z87.891 Personal history of nicotine dependence; Z96.641 Presence of right artificial hip joint; Z98.890 Other specified postprocedural states; Z79.899 Other long term (current) drug therapy; Z88.8 Allergy status to other drugs, medicaments and biological substances
CPT/HCPCS: 99283

== ENCOUNTER → 2018-07-22 | Outpatient (CLI) | payer OTHER | LOC: LABPAT 11:00 | PROVIDERS: ATTEND Orthopaedic Surgery | DX: Z01.812 Encounter for preprocedural laboratory examination (principal); M16.12 Unilateral primary osteoarthritis, left hip | CPT/HCPCS: 87070 ==

== ENCOUNTER 2018-07-28 07:30 | Inpatient (IN) | payer OTHER ==
--- NOTE | 2018-07-27 16:22 | HP ---
HISTORY AND PHYSICAL DATE OF SURGERY: 07/28/2018 Perez Gleason is a 48-year-old patient seen with symptomatic left hip osteoarthritis. Treatment options were discussed with him. He elected to proceed left total hip arthroplasty. Consent was obtained. Previous preoperative clearance had been obtained by Dr. Mckeon. PAST MEDICAL HISTORY: Depression. PAST SURGICAL HISTORY: Right total hip arthroplasty. MEDICATIONS: Amitriptyline, meclizine, Propanol, Wellbutrin. ALLERGIES: None. SOCIAL HISTORY: Denies tobacco use. PHYSICAL EXAMINATION: Evaluation of the left hip: There is very limited range of motion with severe pain. Positive hip impingement sign. Straight leg raise negative. His distal neurovascular exam is intact. Left hip radiographs reveal severe osteoarthritic changes. IMPRESSION: 1. Left hip osteoarthritis. 2. History of right total hip arthroplasty. 3. Depression. PLAN: Direct anterior left total hip arthroplasty. MMODL / IJN: [id number] /
[~2018-07-28 07:30] MED LIST changes: +DEXAMETHASONE SOD PHOSPHATE 10 MG/ML 1 ML VIAL IV ONE; -LACTATED RINGERS 1,000 ML IV SCH; -LIDOCAINE 1% 20 ML VIAL (10MG/ML) FOR IV START INTRADERMA PRN; +MIDAZOLAM (PF) 2 MG/2 ML VIAL IV PRN; +SCOPOLAMINE 1.5MG/72HR PATCH TRANSDERM ONE
[2018-07-28] MEDS: LACTATED RINGERS 1,000 ML IV SCH (09:32)
[2018-07-28] MEDS ORDERED: LIDOCAINE 1% 20 ML VIAL (10MG/ML) FOR IV START INTRADERMA ONE (09:33)
[2018-07-28 09:55] LABS: ALT 42 U/L (21-72); AST 31 U/L (17-59); Albumin 4.7 g/dL (3.5-5.0); Alkaline Phosphatase 54 U/L (38-126); Anion Gap 9 mmol/L; Blood Urea Nitrogen 15 mg/dL (9-20); Calcium 9.9 mg/dL (8.4-10.2); Carbon Dioxide 24 mmol/L (22-30); Chloride 107 mmol/L (98-107); Glucose 113 mg/dL (74-99); Sodium 140 mmol/L (137-145); Total Bilirubin 1.3 mg/dL (0.2-1.3); Total Protein 7.7 g/dL (6.3-8.2)
[2018-07-28 09:56] LABS: INR 0.9 (<1.2); Partial Thromboplastin Time 25.8 sec (22.0-30.0); Prothrombin Time 9.8 sec (9.0-12.0)
[2018-07-28 10:03] LABS: Basophils # (A) 0.1 k/uL (0-0.2); Basophils % (A) 1 %; Eosinophils # (A) 0.4 k/uL (0-0.7); Eosinophils % (A) 7 %; Hypochromasia Moderate; Lymphocytes # (A) 1.5 k/uL (1.0-4.8); Lymphocytes % (A) 29 %; MCH 27.3 pg (25.0-35.0); MCHC 31.2 g/dL (31.0-37.0); MCV 87.4 fL (80.0-100.0); Mean Platelet Volume 7.3; Monocytes # (A) 0.4 k/uL (0-1.0); Monocytes % (A) 6 %; Neutrophils # (A) 2.9 k/uL (1.3-7.7); Neutrophils % (A) 54 %; Platelet Count 238 k/uL (150-450); RBC 5.15 m/uL (4.30-5.90); RDW 14.5 % (11.5-15.5); WBC 5.4 k/uL (3.8-10.6)
[2018-07-28 10:04] LABS: Potassium 4.7 mmol/L (3.5-5.1)
[2018-07-28] MEDS ORDERED: ceFAZolin 3,000 MG in SODIUM CHLORIDE 0.9% IRRIGATIO 3,000 ML IRRIGATION ONE (11:33)
[2018-07-28] MEDS ORDERED: LACTATED RINGERS 1,000 ML IV ONE ×3 (11:48→13:05)
[2018-07-28] MEDS ORDERED: ROPIVACAINE 246.25 MG, EPINEPHrine 0.5 MG, KETOROLAC 30 MG, cloNIDine HCL/PF 80 MCG, WA... MISCELLANE ONE ×5 (12:10)
[2018-07-28] MEDS ORDERED: HYDROcodone/APAP 7.5-325MG 1 EACH TAB PO PRN ×2 (13:23)
[2018-07-28] MEDS ORDERED: ONDANSETRON 4 MG/2 ML VIAL IVP PRN (13:23)
[2018-07-28] MEDS ORDERED: traMADol 50 MG TAB PO PRN (13:23)
[2018-07-28] MEDS ORDERED: NALOXONE 0.4 MG/ML 1 ML VIAL IV PRN (13:23)
[2018-07-28] MEDS ORDERED: HYDROmorphone 1 MG/ML 1 ML SYRINGE IVP PRN (13:23)
[2018-07-28] MEDS ORDERED: HYDROmorphone 0.5 MG/0.5 ML SYRINGE IVP PRN ×3 (13:23→17:48)
--- NOTE | 2018-07-28 13:23 | P.OP ---
Date of Procedure: 07/28/18 Preoperative Diagnosis: Left hip osteoarthritis Postoperative Diagnosis: Left hip osteoarthritis Procedure(s) Performed: Direct anterior left total hip arthroplasty Implants: 1. Depuy Corail KA size 12 standard collar press-fit femoral stem 2. Depuy pinnacle 62 mm press-fit acetabular shell 3. Depuy pinnacle polyethylene acetabular liner neutral 36 mm ID 62 mm OD 4. Biolox delta ceramic femoral head +1.5 36 Anesthesia: local, spinal Surgeon: Aram Isabel Food Quality Tester #1: Zackary Noel Estimated Blood Loss (ml): 200 Pathology: other (Femoral head) Condition: stable Disposition: PACU Indications for Procedure: 48-year-old patient seen with progressive symptomatic left hip osteoarthritis. We discussed treatment options, he elected to proceed with total hip arthroplasty. Operative Findings: See description of procedure Description of Procedure: The patient was taken to the operative suite. Patient underwent a spinal anesthetic by the department of anesthesia. Patient was then transferred to the [place] table. Patient was given preoperative IV antibiotics and TXA. Both lower extremities were placed in standard leg spars. The hip was then prepped and draped in the normal sterile orthopedic fashion. A standard anterior incision was made beginning 3 cm lateral and 1 cm distal to the ASIS extending 10 cm. Dissection was then carried down through the subcutaneous soft tissues down to the fascia overlying the tensor fascia tona. An incision was now made through the fascia. Careful dissection was taken down exposing the tensor fascia tona muscle. A Cobra retractor was now placed along the medial femoral neck and a second one along the lateral femoral neck. The venous circumflex vessels were now identified, cauterized and clipped. We identified the anterior hip capsule. An incision was made through the hip capsule along the lateral border. I performed a partial anterior capsulectomy. Retractors were now placed around the femoral neck itself. A femoral neck cut was now made with a sagittal saw. It was completed with an osteotome at the lateral neck area. The femoral head was now removed without difficulty. The extremity was now rotated to 45 of external rotation. It was locked in position. Residual labrum was now debrided out. Serial reaming was performed of the acetabulum while Mark ACKERMAN assisted holding an anterior retractor for exposure. Once we reached the appropriate size and a trial was position and fit nicely. The appropriate size was now chosen opened and made available. It was introduced into the acetabulum without difficulty. The C-arm/fluoroscopy was now brought into the operative field. We made sure we had a true AP pelvic view. We now under direct C-arm/fluoroscopy introduced into the acetabular component with appropriate version and inclination. I held the cup in appropriate position well Mark ACKERMAN used a mallet to seat the acetabular component. I noted the component now to be well seated and stable. Acetabular cup introduce her was removed. The C-arm was pulled back. An appropriate liner was introduced and clicked into position. It was felt to be stable. At this point retractors were removed. The extremity was now placed into 120 external rotation with no traction. The leg was now dropped to the ground and adducted. Appropriate retractors were now positioned along the proximal femur. We also placed our femoral look into position. Additional capsular releasing was performed to gain access to the proximal femur. We now used a box osteotome. A canal finder was now utilized. Serial broaching was now performed with the assistance of Mark ACKERMAN tapping the broaches down with a mallet while held the broach in appropriate rotation and position. This was done until we reached the appropriate size with good overall rotational stability. Appropriate calcar planing was performed. A trial head/neck was placed into position. The hip was now reduced. The C-arm/fluoroscopy was brought back into the operative field. A spot film was obtained of the nonoperative hip. A spot film was obtained of the trial components. Overlays were performed, we noted good overall alignment and positioning for determining leg length. The C- arm/fluoroscopy was pulled back. Retractors were repositioned and the hip was dislocated. The leg was again taken down to the ground and adducted. Appropriate retractors were repositioned as well as the femoral hook. All trial components were removed. The femoral implant was opened along with the femoral head. The femoral implant was introduced on the appropriate handle into our pre-broached area. I held the component position well Mark ACKERMAN used a mallet to seat the femoral component. The femoral component was now noted to be well seated and stable.. The femoral head was introduced with good positioning and fixation noted. Retractors were now removed. The hip was now reduced. There appeared be good positioning of the hip confirmed on intraoperative fluoroscopy. Spot films were obtained to document this. A second gram of TXA was given. The deep and superficial soft tissues were infiltrated with local analgesic. Bipolar cautery had been utilized intermittently through the procedure for hemostasis. The wound was irrigated copiously with pulse lavage mechanical irrigation. The fascia was repaired with Vicryl suture. The subcutaneous soft tissues were repaired in layers with Vicryl suture. The skin was approximated with pernio/Dermabond. Sterile dressings were applied. Patient was then awakened, transferred to a bed and taken to recovery in stable condition. Mark ACKERMAN assisted with the complex procedure.
--- NOTE | 2018-07-28 14:29 | XR ---
EXAMINATION TYPE: XR Hip Limited LT DATE OF EXAM: 07/28/2018 COMPARISON: NONE HISTORY: Postop TECHNIQUE: One view submitted. FINDINGS: There is a prosthetic hip in near anatomic alignment. There is soft tissue edema and emphysema. IMPRESSION: 1. Postoperative change. Appears in near-anatomic alignment.
--- NOTE | 2018-07-28 14:30 | FL ---
EXAMINATION TYPE: FL guidance operating room DATE OF EXAM: 07/28/2018 HISTORY: Flouroscopy time 34 seconds of fluoroscopy provided. IMPRESSION: 1. Fluoroscopy time.
[2018-07-28 16:42] VITALS: BMI 42.0
--- NOTE | 2018-07-28 18:00 | P.CONS ---
History of Present Illness - Reason for Consult Consult date: 07/28/18 Medical management Requesting physician: Aram Isabel - Chief Complaint L hip pain - History of Present Illness 48-year-old M with PMH of hypertension, anxiety and bilateral hip osteoarthritis status post right hip arthroplasty in March 2018 presents to [facility] for elective left hip arthroplasty. Patient was seen and examined after his surgery. No acute events overnight. Patient complains of left hip pain, 7 out of 10 in severity. Pain is at the site of incision. He denies any headache, lower extremity edema, nausea, vomiting, fever, chills, cough, chest pain, shortness of breath, palpitations, changes in urination or bowel habits. No changes in appetite or weight. Patient states he has not had a bowel movement as of yet and is not passing gas. Of note, patient works as a pina. 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 Anemia, obesity, GERD, depression, schizophrenia, CHRONIC BACK PAIN History of Any Multi-Drug Resistant Organisms: None Reported Past Surgical History: Back Surgery, Joint Replacement, Orthopedic Surgery Additional Past Surgical History / Comment(s): cyst removed from throat; pain procedure in [place], EPIDURAL INJECTIONS, right hip replacement Past Anesthesia/Blood Transfusion Reactions: No Reported Reaction Past Psychological History: Anxiety, Bipolar, Schizophrenia Smoking Status: Former smoker Past Alcohol Use History: None Reported Additional Past Alcohol Use History / Comment(s): STARTED SMOKING AT AGE 18 QUIT IN 2010 SMOKED 1 PACK PER WEEK Past Drug Use History: None Reported - Past Family History Mother Family Medical History: No Reported History Medications and Allergies Home Medications Medication Instructions Recorded Confirmed Type Propranolol [Inderal] 40 mg PO BID #60 tab 10/26/16 07/28/18 Rx ALPRAZolam [Xanax] 0.25 mg PO BID PRN #15 tab 02/26/17 07/28/18 Rx Omeprazole 20 mg PO DAILY #20 capsule. 02/26/17 07/28/18 Rx Meclizine [Antivert] 25 mg PO BID PRN 05/31/17 07/28/18 History Ascorbic Acid [Vitamin C] 500 mg PO DAILY 11/15/17 07/28/18 History Cholecalciferol [Vitamin D3] 1,000 unit PO DAILY 11/15/17 07/28/18 History Gabapentin [Neurontin] 300 mg PO BID 12/23/17 07/28/18 History Acetaminophen [Tylenol] 325 mg PO Q4H 03/31/18 07/28/18 History Aspirin 325 mg PO BID #60 tab 04/02/18 07/28/18 Rx Hydrocodone/Acetaminophen [[place] 1 - 2 tab PO Q6H PRN 04/17/18 07/28/18 History 10-325] Allergies Allergy/AdvReac Type Severity Reaction Status Date / Time caffeine AdvReac SHAKING Verified 07/28/18 14:56 clonazepam [From Klonopin] AdvReac shaking Verified 07/28/18 14:56 Physical Exam Vitals: Vital Signs Temp Pulse Pulse Resp BP Pulse Ox 07/28/18 14:25 74 16 97/51 97 07/28/18 14:10 76 16 97/54 100 07/28/18 13:55 85 16 90/51 100 07/28/18 13:40 99.4 F 83 18 90/52 96 07/28/18 09:19 97.8 F 72 16 128/82 96 Intake and Output 07/28/18 07/28/18 07/28/18 06:59 14:59 22:59 Intake Total 2201 Output Total 200 Balance 2000 Intake: IV 2200 Output: Estimated Blood Loss 200 Other: Weight 104.326 kg General: [non toxic], [no distress], [appears at stated age] Derm: [warm], [dry] Head: [atraumatic], [normocephalic], [symmetric] Eyes: [EOMI], [no lid lag], [anicteric sclera] Mouth: [no lip lesion], [mucus membranes moist] Cardiovascular: [S1S2 reg], [no murmur], [positive DP pulse bilateral], Lungs: [CTA bilateral], [no rhonchi, no rales] , [no accessory muscle use] Abdominal: [soft], [ nontender to palpation], [no guarding], [no appreciable organomegaly] Ext: [no gross muscle atrophy], [no edema], [no contractures], [left hip no hematoma, dressings clean dry and intact] Neuro: [no focal neuro deficits] Psych: [Alert], [oriented], [appropriate affect] Results CBC & Chem 7: 07/28/18 09:12 07/28/18 09:12 Labs: Abnormal Lab Results - Last 24 Hours (Table) 07/28/18 Range/Units 09:12 Glucose 113 H (74-99) mg/dL Assessment and Plan Assessment: Assessment and Plan 1. Left hip osteoarthritis status post arthroplasty postop day 0 2. Hypertension 3. Anxiety 1. POD 0. Cefazolin 2g IV TID x 2 doses. Pain management with [place] 7.5 2 tab PO Q6H PRN for pain 1-5 and Dilaudid 0.5 mg IV Q3H PRN for pain 6-10. Continue Metoxicam 7.5 mg PO QD. Weight bearing as per Ortho. Will follow Orthopedic, PT and OT recommendations. 2. BP 97/51. On Propranolol 40 mg PO QD at home. Hold due to hypotensive nature (likely from anesthesia). Monitor vitals, adjust medications as necessary. 3. Continue Xanax 0.25 mg PO BID PRN for anxiety. Patient is postop day 0 of left hip arthroplasty. Ensure adequate pain management. Thank you for this consult, please feel free to reach out to [facility] for additional questions.
[2018-07-28] MEDS: ceFAZolin IN SWFI 2 GM/20 ML SYRINGE IVP SCH (19:03)
[2018-07-28] MEDS: SENNOSIDES-DOCUSATE SODIUM 1 EACH TAB PO SCH (20:08)
[2018-07-28] MEDS: PROPRANOLOL 40 MG TAB PO SCH (20:08)
[2018-07-28] MEDS: GABAPENTIN 300 MG CAP PO SCH (20:08)
[2018-07-28] MEDS: HYDROcodone/APAP 7.5-325MG 1 EACH TAB PO PRN (20:08)
[2018-07-28] MEDS: ALPRAZolam 0.25 MG TAB PO PRN (22:36)
[2018-07-29] MEDS: ceFAZolin IN SWFI 2 GM/20 ML SYRINGE IVP SCH (03:03)
[2018-07-29] MEDS: ALPRAZolam 0.25 MG TAB PO PRN ×2 (06:21→19:50)
[2018-07-29] MEDS: HYDROcodone/APAP 7.5-325MG 1 EACH TAB PO PRN ×3 (06:21→19:51)
[2018-07-29] MEDS: LACTATED RINGERS 1,000 ML IV SCH (07:34)
[2018-07-29 07:48] VITALS: RESP 16
[2018-07-29] MEDS: PROPRANOLOL 40 MG TAB PO SCH ×2 (08:51→21:00)
[2018-07-29] MEDS: ENOXAPARIN 40 MG/0.4 ML SYRINGE SQ SCH (08:58)
[2018-07-29] MEDS: GABAPENTIN 300 MG CAP PO SCH ×2 (08:59→21:10)
[2018-07-29] MEDS: MELOXICAM 7.5 MG TAB PO SCH (08:59)
[2018-07-29] MEDS: FAMOTIDINE 20 MG TAB PO SCH (08:59)
[2018-07-29 09:15] LABS: Basophils % (A) 0 %; Eosinophils # (A) 0.1 k/uL (0-0.7); Eosinophils % (A) 1 %; HCT 37.4 % (39.0-53.0); HGB 11.6 gm/dL (13.0-17.5); Hypochromasia Moderate; Lymphocytes # (A) 1.4 k/uL (1.0-4.8); Lymphocytes % (A) 9 %; MCH 27.1 pg (25.0-35.0); MCV 87.5 fL (80.0-100.0); Mean Platelet Volume 6.9; Monocytes % (A) 6 %; Neutrophils # (A) 12.8 k/uL (1.3-7.7); Neutrophils % (A) 82 %; Platelet Count 266 k/uL (150-450); Poikilocytosis Slight; RBC 4.28 m/uL (4.30-5.90); RDW 14.4 % (11.5-15.5); WBC 15.6 k/uL (3.8-10.6)
--- NOTE | 2018-07-29 09:16 | P.PN ---
Subjective Progress Note Date: 07/29/18 Patient reporting his pain in the left hip is approximately 7 out of 10 this morning requesting more [place]. Patient has not been up with physical therapy yet but is sitting up bedside, denies any chest pain or shortness of breath. Reports his blood pressure is controlled. No acute events overnight Objective - Vital Signs Vital signs: Vital Signs Temp 97.7 F 07/29/18 07:09 Pulse 65 07/29/18 07:09 Resp 16 07/29/18 07:09 BP 109/68 07/29/18 07:09 Pulse Ox 98 07/29/18 07:09 Intake & Output 07/28/18 07/29/18 07/29/18 18:59 06:59 18:59 Intake Total 2201 Output Total 700 Balance 1501 Weight 104.326 kg Intake: IV 2200 Output: Urine 500 Estimated Blood Loss 200 Other: Voiding Method Toilet # Voids 1 3 - Exam Constitutional: No acute distress, conversant, pleasant Eyes: Anicteric sclerae, moist conjunctiva, no lid-lag, PERRLA ENMT: NC/AT,Oropharynx clear, no erythema, exudates Neck:Supple, FROM, no masses, or JVD, No carotid bruits; No thyromegaly Lungs: Clear to auscultation, Clear to percussion, Normal respiratory effort, no accessory muscle use Cardiovascular: Heart regular in rate and rhythm, No murmurs, gallops, or rubs no peripheral edema Abdominal: Soft Nontender, nom distended, no guarding, no rebound or rigidity, Normoactive bowel sounds No hepatomegaly, No splenomegaly, No palpable mass No abdominal wall hernia noted Skin: Normal temperature, tone, texture, turgor, No induration No subcutaneous nodules, No rash, lesions, No ulcers Extremities: The left hip area with minimal soft tissue swelling, dressings clean dry and intact. Psychiatric: Alert and oriented to person, place and time, Appropriate affect Intact judgement Neuro: Muscles Strength 5/5 in all 4 extremities, Sensation to light touch grossly present throughout, Cranial nerves II-XII grossly intact. No focal sensory deficits - Labs CBC & Chem 7: 07/28/18 09:12 07/28/18 09:12 Labs: Abnormal Lab Results - Last 24 Hours (Table) 07/28/18 Range/Units 09:12 Glucose 113 H (74-99) mg/dL Assessment and Plan (1) HTN (hypertension) Narrative/Plan: * Blood pressure stable controlled * Continue home regimen with propranolol 40 mg by mouth twice a day Current Visit: Yes Status: Acute Code(s): I10 - ESSENTIAL (PRIMARY) HYPERTENSION SNOMED Code(s): 97148923 (2) Anxiety Current Visit: Yes Status: Acute Code(s): F41.9 - ANXIETY DISORDER, UNSPECIFIED SNOMED Code(s): 17438334 (3) Status post total hip replacement, left Narrative/Plan: * Management per primary team * deferred treatment of postop pain to orthopedic service Current Visit: Yes Status: Acute Code(s): Z96.642 - PRESENCE OF LEFT ARTIFICIAL HIP JOINT SNOMED Code(s): 558286430917 (4) Osteoarthritis of left hip Current Visit: Yes Status: Acute Code(s): M16.12 - UNILATERAL PRIMARY OSTEOARTHRITIS, LEFT HIP SNOMED Code(s): 280725627661655 Plan: * Patient doing well postoperatively no significant issues medically stable * Will plan to sign off on this patient today * for further questions or concerns please hesitate to contact the [facility] inpatient team
--- NOTE | 2018-07-29 12:00 | P.PN ---
Subjective Progress Note Date: 07/29/18 Principal diagnosis: Status post left total hip arthroplasty Patient evaluated at bedside today, he is resting comfortably. He is ambulating with therapy. Minimal discomfort involving the hip. Denies any fevers or chills. Objective - Vital Signs Vital signs: Vital Signs Temp 97.7 F 07/29/18 07:09 Pulse 65 07/29/18 07:09 Resp 16 07/29/18 07:09 BP 109/68 07/29/18 07:09 Pulse Ox 98 07/29/18 07:09 Intake & Output 07/28/18 07/29/18 07/29/18 18:59 06:59 18:59 Intake Total 2201 Output Total 700 Balance 1501 Weight 104.326 kg Intake: IV 1 Output: Urine 500 Estimated Blood Loss 200 Other: Voiding Method Toilet Toilet # Voids 1 3 - Exam Left lower extremity: Incision is clean, dry, and intact. The. The optifoam dressing is in good condition. There is minimal soft tissue swelling and ecchymosis surrounding the medial and lateral aspects of the incision. Calf is soft, no tenderness with palpation. Plantar flexion, dorsiflexion, EHL, FHL are intact. Sensory exam to light touch throughout the extremity is intact, dorsal pedis pulses 2+. - Labs CBC & Chem 7: 07/29/18 07:24 07/28/18 09:12 Labs: Abnormal Lab Results - Last 24 Hours (Table) 07/29/18 Range/Units 07:24 WBC 15.6 H (3.8-10.6) k/uL RBC 4.28 L (4.30-5.90) m/uL Hgb 11.6 L (13.0-17.5) gm/dL Hct 37.4 L (39.0-53.0) % Neutrophils # 12.8 H (1.3-7.7) k/uL Assessment and Plan Plan: Assessment: Postoperative day #1 status post left total hip arthroplasty Plan: Pain control, continue current medication GI and DVT prophylaxis, continue current medication Wound care discussed Continue with physical therapy Medical recommendations Plan for discharge home tomorrow Time with Patient: Less than 30
[2018-07-29] MEDS: SENNOSIDES-DOCUSATE SODIUM 1 EACH TAB PO SCH (21:06)
[2018-07-30 01:21] VITALS: TEMP 98.2
[2018-07-30] MEDS: HYDROcodone/APAP 7.5-325MG 1 EACH TAB PO PRN (04:51)
[2018-07-30] MEDS: ALPRAZolam 0.25 MG TAB PO PRN (06:11)
[2018-07-30 07:52] VITALS: BP 106/64; PULSE 69
[2018-07-30] MEDS: PROPRANOLOL 40 MG TAB PO SCH (09:32)
[2018-07-30] MEDS: ENOXAPARIN 40 MG/0.4 ML SYRINGE SQ SCH (09:32)
[2018-07-30] MEDS: MELOXICAM 7.5 MG TAB PO SCH (09:32)
[2018-07-30] MEDS: GABAPENTIN 300 MG CAP PO SCH (09:33)
[2018-07-30] MEDS: FAMOTIDINE 20 MG TAB PO SCH (09:33)
[2018-07-30] MEDS: LACTATED RINGERS 1,000 ML IV SCH (09:33)
--- NOTE | 2018-07-30 10:44 | P.DS ---
Providers Date of admission: 07/28/18 08:22 Expected date of discharge: 07/30/18 Attending physician: Aram Isabel Consults: 07/28/18 13:23 Consult Physician Routine Consulting Provider: Ludy Hanson Consult Reason/Comments: Medical management Do you want consulting provider notified?: Yes Primary care physician: Doris Mckeon MD Hospital Course: Date of admission: 07/28/2018 Date of discharge: 07/30/2018 Admission diagnosis: Status post direct anterior left total hip arthroplasty Discharge diagnosis: Same Attending physician: Dr. Isabel Surgical procedures: Direct anterior left total hip arthroplasty Brief history: Patient is a 48-year-old male with a history of progressive primary left hip osteoarthritis. At this point patient has failed conservative treatment measures and has opted to proceed with a elective left total hip arthroplasty. Hospital course: Details of patient's surgery can be found in operative report. Patient tolerated the procedure well and was subsequently transported to orthopedic floor. Patient's orthopeidc and medical care was provided daily. Patient had daily laboratory tests performed for evaluation of overall blood counts. Patient had daily physical therapy to include strengthening range of motion as well as education with walker ambulation. Patient was treated with Lovenox for their postoperative DVT prophylaxis during their inpatient stay. Patient was noted to have a relatively uneventful postoperative course. Patient reported satisfactory pain control with oral pain medications by postoperative day 0. Patient showed satisfactory progress with physical therapy. Patient moved steadily through the program and had no difficulty meeting the goals by postoperative day 1. Given patient's otherwise satisfactory course and having met physical therapy goals, plan is to discharge patient home on postoperative day . Discharge condition/disposition: Patient will be discharged home in stable condition. Discharge medications: Instructions are given on resumption of patient's normal daily medications per primary care recommendation, in addition patient will be prescribed [place] 7.5 mg/325 mg, aspirin 325 mg. Discharge instructions: 1. Wound care and infection precautions, keep incision dry and covered while showering, no lotions, creams, moisturizers. No soaking, tubs, pools, hottubs. Do not scrub over the incision. 2. Weight-bear as tolerated with walker / cane until follow-up. 3. Ice and elevate when necessary. Do not exceed 20 minutes per hour with ice pack. 4. Utilize compression sleeve until seen at first follow up appointment. 5. Visiting nursing care. 6. Home physical therapy. 7. Pain meds and anticoagulants per prescription. 8. Pain medication has potential to cause constipation. Increase oral fluid and fiber intake. Contact primary care provider if you have not had a bowel movement within 48 hours after discharge 9. No anti-inflammatory medication until discussed at first post operative visit, this including Motrin, Aleve, Mobic, Diclofenac. 10. Follow up in office at 2 weeks postop with Mark Noel PA-C 11. Follow up with your primary care doctor 7-10 days after discharge. 12. Contact [facility] with any questions, . Procedures: Direct anterior left total hip arthroplasty Patient Condition at Discharge: Good Plan - Discharge Summary Discharge Rx Participant: Yes New Discharge Prescriptions: New Aspirin 325 mg PO BID #60 tab HYDROcodone/APAP 7.5-325MG [[place] 7.5] 1 - 2 each PO Q6HR PRN #56 tab PRN Reason: Pain No Action Propranolol [Inderal] 40 mg PO BID #60 tab ALPRAZolam [Xanax] 0.25 mg PO BID PRN #15 tab PRN Reason: Anxiety Omeprazole 20 mg PO DAILY #20 capsule.dr Piercelizine [Antivert] 25 mg PO BID PRN PRN Reason: Vertigo Cholecalciferol [Vitamin D3] 1,000 unit PO DAILY Ascorbic Acid [Vitamin C] 500 mg PO DAILY Gabapentin [Neurontin] 300 mg PO BID Acetaminophen [Tylenol] 325 mg PO Q4H Discharge Medication List Propranolol [Inderal] 40 mg PO BID #60 tab 10/26/16 [Rx] ALPRAZolam [Xanax] 0.25 mg PO BID PRN #15 tab 02/26/17 [Rx] Omeprazole 20 mg PO DAILY #20 capsule. 02/26/17 [Rx] Meclizibella [Antivert] 25 mg PO BID PRN 05/31/17 [History] Ascorbic Acid [Vitamin C] 500 mg PO DAILY 11/15/17 [History] Cholecalciferol [Vitamin D3] 1,000 unit PO DAILY 11/15/17 [History] Gabapentin [Neurontin] 300 mg PO BID 12/23/17 [History] Acetaminophen [Tylenol] 325 mg PO Q4H 03/31/18 [History] Aspirin 325 mg PO BID #60 tab 07/30/18 [Rx] HYDROcodone/APAP 7.5-325MG [[place] 7.5] 1 - 2 each PO Q6HR PRN #56 tab 07/30/18 [ Rx] Follow up Appointment(s)/Referral(s): Doris Mckeon MD [Primary Care Provider] - 08/13/18 12:00 pm (Patient has a regular appointment set for 08/05/2018 office asks that patient keeps that appointment still, they are unable at this time to use the appointment as a hopital follow up) [facility], [NON-STAFF] - Zackary Noel PAC [PHYSICIAN DIVIDEND CLERK] - 08/13/18 2:30 pm Activity/Diet/Wound Care/Special Instructions: Orthopedic Discharge Instructions: 1. Wound care and infection precautions, keep incision dry and covered while showering, no lotions, creams, moisturizers. No soaking, pools, hot tubs. Do not scrub over incision. 2. Weight-bear as tolerated with walker / cane until follow-up. 3. Ice and elevate when necessary. Do not exceed 20 minutes per hour with ice pack. 4. Utilize compression sleeve until seen at first follow up appointment. 5. Pain meds and anticoagulants per prescription. 6. Pain medication has potential to cause constipation. Increase oral fluid and fiber intake. Contact primary care provider if you have not had a bowel movement within 48 hours after discharge. 7. No anti-inflammatory medication until discussed at first post operative visit, this including Motrin, Aleve, Mobic, Diclofenac. 8. Follow up in office at 2 weeks postop with Mark Noel PA-C 9. Follow up with your primary care doctor 7-10 days after discharge. 10. Contact [facility] with any questions, . Discharge Disposition: HOME WITH HOME HEALTH SERVICES
--- NOTE | 2018-07-30 10:44 | P.PN ---
Subjective Progress Note Date: 07/30/18 Principal diagnosis: Status post left total hip arthroplasty Patient evaluated at bedside today, he is resting comfortably. He is ambulating with therapy. Minimal discomfort involving the hip. Denies any fevers or chills. Objective - Vital Signs Vital signs: Vital Signs Temp 98.2 F 07/30/18 07:18 Pulse 69 07/30/18 07:18 Resp 16 07/30/18 07:18 BP 106/64 07/30/18 07:18 Pulse Ox 96 07/30/18 07:18 Intake & Output 07/29/18 07/30/18 07/30/18 18:59 06:59 18:59 Other: Voiding Method Toilet Toilet # Voids 3 1 - Exam Left lower extremity: Incision is clean, dry, and intact. The. The optifoam dressing is in good condition. There is minimal soft tissue swelling and ecchymosis surrounding the medial and lateral aspects of the incision. Calf is soft, no tenderness with palpation. Plantar flexion, dorsiflexion, EHL, FHL are intact. Sensory exam to light touch throughout the extremity is intact, dorsal pedis pulses 2+. - Labs CBC & Chem 7: 07/29/18 07:24 07/28/18 09:12 Assessment and Plan Plan: Assessment: Postoperative day #2 status post left total hip arthroplasty Plan: Pain control, plan for [place] 7.5 mg/325 at discharge GI and DVT prophylaxis, aspirin 325 mg twice a day Wound care discussed Continue with physical therapy Medical recommendations Discharged home today Time with Patient: Less than 30
[2018-07-30] MEDS ORDERED: SODIUM CHLORIDE 0.9% 100 ML BAG ONE (11:22)
[2018-07-30] MEDS ORDERED: KETAMINE 10 MG/ML 20 ML VIAL ONE (11:22)
[2018-07-30] MEDS ORDERED: MIDAZOLAM 2 MG/2 ML VIAL ONE (11:22)
[2018-07-30] MEDS ORDERED: PROPOFOL 10 MG/ML 20 ML VIAL IV ONE (11:22)
[2018-07-30] MEDS ORDERED: TRANEXAMIC ACID 1,000 MG/10 ML VIAL ONE (11:22)
[2018-07-30] MEDS ORDERED: fentaNYL (PF) 50 MCG/ML 2 ML AMP ONE (11:22)
== END 2018-07-30 13:00 | disposition home health service (06) | DRG 470 ==
LOC: 2ORMAIN 08:22 → 4SSUR 13:22
PROVIDERS: ADMIT Orthopaedic Surgery; ATTEND Orthopaedic Surgery
PROC: 0SRB04A Replacement of Left Hip Joint with Ceramic on Polyethylene Synthetic Substitute, Uncemented, Open Approach (ICD-10-PCS; principal; 2018-07-28 10:15)
DX: M16.0 Bilateral primary osteoarthritis of hip (principal); F20.9 Schizophrenia, unspecified; F31.9 Bipolar disorder, unspecified; F41.9 Anxiety disorder, unspecified; I10 Essential (primary) hypertension; K21.9 Gastro-esophageal reflux disease without esophagitis; Z79.82 Long term (current) use of aspirin; Z79.899 Other long term (current) drug therapy; Z87.891 Personal history of nicotine dependence; Z96.641 Presence of right artificial hip joint
CPT/HCPCS: 36415; 73501; 80053; 85025; 85610; 85730; 86850; 86900; 86901; 88300

== ENCOUNTER → 2019-04-15 | Outpatient (CLI) | payer OTHER ==
[2019-04-15 16:54] LABS: Rheumatoid Factor 6 IU/mL (0-15)
== END | disposition home or self-care (01) ==
LOC: LABWHC1 10:00
PROVIDERS: ATTEND Psychiatry & Neurology Pain Medicine
DX: M25.50 Pain in unspecified joint (principal)
CPT/HCPCS: 36415; 85652; 86038; 86140; 86431

== ENCOUNTER → 2019-06-01 | Outpatient (CLI) | payer OTHER ==
[2019-06-01 08:07] LABS: Basophils # (A) 0.1 k/uL (0-0.2); Basophils % (A) 1 %; Eosinophils # (A) 0.4 k/uL (0-0.7); Eosinophils % (A) 8 %; HCT 43.2 % (39.0-53.0); HGB 13.9 gm/dL (13.0-17.5); Hypochromasia Moderate; Lymphocytes # (A) 2.3 k/uL (1.0-4.8); Lymphocytes % (A) 44 %; MCH 28.9 pg (25.0-35.0); MCHC 32.3 g/dL (31.0-37.0); MCV 89.6 fL (80.0-100.0); Mean Platelet Volume 6.4; Monocytes # (A) 0.3 k/uL (0-1.0); Monocytes % (A) 5 %; Neutrophils # (A) 2.2 k/uL (1.3-7.7); Neutrophils % (A) 41 %; Platelet Count 204 k/uL (150-450); Poikilocytosis Slight; RBC 4.82 m/uL (4.30-5.90); RDW 14.1 % (11.5-15.5); WBC 5.3 k/uL (3.8-10.6)
[2019-06-01 11:24] LABS: Albumin 4.3 g/dL (3.80-4.90); Albumin/Globulin Ratio 1.95 (1.60-3.17); Anion Gap 8.9 mmol/L (4.00-12.00); Calcium 9.4 mg/dL (8.7-10.3); Carbon Dioxide 21.1 mmol/L (21.6-31.8); Chol/HDL Ratio 5.39; Globulin 2.2 g/dL (1.6-3.3); LDL Cholesterol,Calculated 139.4 mg/dL (0.0-131.0); Potassium 4.2 mmol/L (3.5-5.5); Total Bilirubin 0.6 mg/dL (0.2-1.2); Total Protein 6.5 g/dL (6.2-8.2); VLDL Calculation 27.6 mg/dL (5.00-40.00)
--- NOTE | 2019-06-01 16:06 | XR ---
EXAMINATION TYPE: XR knee complete bilateral DATE OF EXAM: 06/01/2019 COMPARISON: None HISTORY: M 25.561 TECHNIQUE: 3 views bilateral knees FINDINGS: Right knee: Mild narrowing medial compartment joint space is present. Medial tibial plateau spurring is present. Small femoral condylar spur is present medially. No joint effusion is evident small poste rior patellar spurs are present. Left knee: Some minimal calcification may be within the medial lateral menisci. Joint spaces appear p reserved. No joint effusion is evident. IMPRESSION: 1. Mild degenerative changes right knee. 2. Minimal calcification within the medial lateral menisci left knee
== END | disposition home or self-care (01) ==
LOC: LABWHC1 07:13
PROVIDERS: ATTEND Family Medicine
DX: M17.11 Unilateral primary osteoarthritis, right knee (principal); M19.90 Unspecified osteoarthritis, unspecified site; I10 Essential (primary) hypertension
CPT/HCPCS: 36415; 80053; 80061; 85025; 86038

== ENCOUNTER 2020-05-16 11:55 | Inpatient (IN) | payer MEDICAID, OTHER ==
--- NOTE | 2020-05-16 12:15 | ED ---
General Adult HPI - General Chief complaint: Psychiatric Symptoms Stated complaint: Withdraws/kidney pain/chest pain Time Seen by Provider: 05/16/20 12:07 Source: patient, family, RN notes reviewed, old records reviewed Mode of arrival: ambulatory Limitations: no limitations - History of Present Illness Initial comments: 50-year-old male presenting for evaluation of increased anxiety, suicidal thoughts as well as chest pain. Patient states that he has been off his anxiety medication for the past 5 months. He's had worsening anxiety and has had tho ughts of harming himself. He denies any specific suicidal plan or suicidal attempt. Additionally said 2 weeks of central chest pain which is nonradiating, no associated dyspnea, no nausea or diaphoresis. - Related Data Home Medications Medication Instructions Recorded Confirmed Meclizine [Antivert] 25 mg PO BID PRN 05/31/17 05/16/20 Cholecalciferol [Vitamin D3] 1,000 unit PO DAILY 11/15/17 05/16/20 Gabapentin [Neurontin] 300 mg PO TID 12/23/17 05/16/20 Acetaminophen with Codeine 1 tab PO TID PRN 05/16/20 05/16/20 [Tylenol w/Codeine #4 Tablet] Albuterol Inhaler [Ventolin Hfa 2 puff INHALATION RT-Q6H PRN 05/16/20 05/16/20 Inhaler] Aspirin EC [Ecotrin] 325 mg PO BID 05/16/20 05/16/20 Naproxen 500 mg PO BID PRN 05/16/20 05/16/20 PARoxetine [Paxil] 20 mg PO HS 05/16/20 05/16/20 Vitamin B Complex 1 cap PO DAILY 05/16/20 05/16/20 Vitamin C 100mg 100 mg PO DAILY 05/16/20 05/16/20 amLODIPine [Norvasc] 5 mg PO BID 05/16/20 05/16/20 hydrOXYzine HCL [Atarax] 20 mg PO Q8H PRN 05/16/20 05/16/20 traZODone HCL 25 - 50 mg PO HS PRN 05/16/20 05/16/20 Previous Rx's Medication Instructions Recorded Propranolol [Inderal] 40 mg PO BID #60 tab 10/26/16 Omeprazole 20 mg PO DAILY #20 capsule. 02/26/17 Allergies Allergy/AdvReac Type Severity Reaction Status Date / Time caffeine AdvReac SHAKING Verified 05/16/20 13:37 clonazepam [From Klonopin] AdvReac shaking Verified 05/16/20 13:37 Review of Systems ROS Statement: Those systems with pertinent positive or pertinent negative responses have been documented in the HPI. ROS Other: All systems not noted in ROS Statement are negative. 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 Anemia, obesity, GERD, depression, schizophrenia, CHRONIC BACK PAIN History of Any Multi-Drug Resistant Organisms: None Reported Past Surgical History: Back Surgery, Joint Replacement, Orthopedic Surgery Additional Past Surgical History / Comment(s): cyst removed from throat; pain procedure in [place], EPIDURAL INJECTIONS, right hip replacement Past Anesthesia/Blood Transfusion Reactions: No Reported Reaction Past Psychological History: Anxiety, Bipolar, Schizophrenia Smoking Status: Current some day smoker Past Alcohol Use History: None Reported Past Drug Use History: None Reported - Past Family History Mother Family Medical History: No Reported History General Exam Limitations: no limitations General appearance: alert, in no apparent distress, anxious Head exam: Present: atraumatic, normocephalic Eye exam: Present: normal appearance. Absent: PERRL, EOMI ENT exam: Present: normal exam Neck exam: Present: normal inspection. Absent: tenderness, meningismus Respiratory exam: Present: normal lung sounds bilaterally. Absent: respiratory distress, wheezes Cardiovascular Exam: Present: regular rate, normal rhythm GI/Abdominal exam: Present: soft. Absent: distended, tenderness, guarding Extremities exam: Present: normal inspection, normal capillary refill. Absent: pedal edema Neurological exam: Present: alert, oriented X3, CN II-XII intact. Absent: motor sensory deficit Psychiatric exam: Present: normal affect, normal mood Skin exam: Present: warm, dry, intact. Absent: cyanosis, diaphoretic Course Vital Signs 05/16/20 05/16/20 11:57 14:00 Temperature 98.0 F Pulse Rate 74 Respiratory 18 18 Rate Blood Pressure 137/96 O2 Sat by Pulse 99 Oximetry - Reevaluation(s) Reevaluation #1: 05/16/20 13:18 patient medically cleared awaiting EPS evaluation EKG Findings - EKG Comments: EKG Findings:: (rhythm, LVH, rate of 69, MT interval 184, QRS duration 102, QTC 435 T-wave inversion in lead 3 and aVF. Medical Decision Making - Medical Decision Making 50-year-old male presenting with anxiety, depression, and suicidal ideation. Patient has been medically clearedand evaluated by [facility]. They are requesting that the patient be admitted for further psychiatric evaluation and treatment. - Lab Data Result diagrams: 05/16/20 12:27 05/16/20 12: Lab Results 05/16/20 05/16/20 05/16/20 Range/Units 12:27 12: 12:27 WBC 6.1 (3.8-10.6) k/uL RBC 4.98 (4.30-5.90) m/uL Hgb 13.9 (13.0-17.5) gm/dL Hct 42.6 (39.0-53.0) % MCV 85.5 (80.0-100.0) fL MCH 28.0 (25.0-35.0) pg MCHC 32.8 (31.0-37.0) g/dL RDW 13.6 (11.5-15.5) % Plt Count 232 (150-450) k/uL Neutrophils % 52 % Lymphocytes % 35 % Monocytes % 5 % Eosinophils % 5 % Basophils % 2 % Neutrophils # 3.2 (1.3-7.7) k/uL Lymphocytes # 2.2 (1.0-4.8) k/uL Monocytes # 0.3 (0-1.0) k/uL Eosinophils # 0.3 (0-0.7) k/uL Basophils # 0.1 (0-0.2) k/uL Hypochromasia Slight Poikilocytosis Slight PT 10.1 (9.0-12.0) sec INR 1.0 (<1.2) APTT 26.0 (22.0-30.0) sec Sodium 138 (137-145) mmol/L Potassium 4.0 (3.5-5.1) mmol/L Chloride 107 (98-107) mmol/L Carbon Dioxide 20 L (22-30) mmol/L Anion Gap 11 mmol/L BUN 12 (9-20) mg/dL Creatinine 1.00 (0.66-1.25) mg/dL Est GFR (CKD-EPI)AfAm >90 (>60 ml/min/1.73 sqM) Est GFR (CKD-EPI)NonAf 87 (>60 ml/min/1.73 sqM) Glucose 126 H (74-99) mg/dL Calcium 9.6 (8.4-10.2) mg/dL Magnesium 1.6 (1.6-2.3) mg/dL Total Bilirubin 1.0 (0.2-1.3) mg/dL AST 41 (17-59) U/L ALT 38 (4-49) U/L Alkaline Phosphatase 63 (38-126) U/L Troponin I (0.000-0.034) ng/mL Total Protein 7.5 (6.3-8.2) g/dL Albumin 4.5 (3.5-5.0) g/dL Urine Opiates Screen (NotDetected) Ur Oxycodone Screen (NotDetected) Urine Methadone Screen (NotDetected) Ur Propoxyphene Screen (NotDetected) Ur Barbiturates Screen (NotDetected) U Tricyclic Antidepress (NotDetected) Ur Phencyclidine Scrn (NotDetected) Ur Amphetamines Screen (NotDetected) U Methamphetamines Scrn (NotDetected) U Benzodiazepines Scrn (NotDetected) Urine Cocaine Screen (NotDetected) U Marijuana (THC) Screen (NotDetected) Serum Alcohol <10 mg/dL 05/16/20 05/16/20 Range/Units 12:27 12:44 WBC (3.8-10.6) k/uL RBC (4.30-5.90) m/uL Hgb (13.0-17.5) gm/dL Hct (39.0-53.0) % MCV (80.0-100.0) fL MCH (25.0-35.0) pg MCHC (31.0-37.0) g/dL RDW (11.5-15.5) % Plt Count (150-450) k/uL Neutrophils % % Lymphocytes % % Monocytes % % Eosinophils % % Basophils % % Neutrophils # (1.3-7.7) k/uL Lymphocytes # (1.0-4.8) k/uL Monocytes # (0-1.0) k/uL Eosinophils # (0-0.7) k/uL Basophils # (0-0.2) k/uL Hypochromasia Poikilocytosis PT (9.0-12.0) sec INR (<1.2) APTT (22.0-30.0) sec Sodium (137-145) mmol/L Potassium (3.5-5.1) mmol/L Chloride (98-107) mmol/L Carbon Dioxide (22-30) mmol/L Anion Gap mmol/L BUN (9-20) mg/dL Creatinine (0.66-1.25) mg/dL Est GFR (CKD-EPI)AfAm (>60 ml/min/1.73 sqM) Est GFR (CKD-EPI)NonAf (>60 ml/min/1.73 sqM) Glucose (74-99) mg/dL Calcium (8.4-10.2) mg/dL Magnesium (1.6-2.3) mg/dL Total Bilirubin (0.2-1.3) mg/dL AST (17-59) U/L ALT (4-49) U/L Alkaline Phosphatase (38-126) U/L Troponin I <0.012 (0.000-0.034) ng/mL Total Protein (6.3-8.2) g/dL Albumin (3.5-5.0) g/dL Urine Opiates Screen Detected H (NotDetected) Ur Oxycodone Screen Not Detected (NotDetected) Urine Methadone Screen Not Detected (NotDetected) Ur Propoxyphene Screen Not Detected (NotDetected) Ur Barbiturates Screen Not Detected (NotDetected) U Tricyclic Antidepress Not Detected (NotDetected) Ur Phencyclidine Scrn Not Detected (NotDetected) Ur Amphetamines Screen Not Detected (NotDetected) U Methamphetamines Scrn Not Detected (NotDetected) U Benzodiazepines Scrn Not Detected (NotDetected) Urine Cocaine Screen Not Detected (NotDetected) U Marijuana (THC) Screen Not Detected (NotDetected) Serum Alcohol mg/dL Disposition Clinical Impression: Anxiety, Depression, Suicidal ideation Disposition: ADMITTED IP TO THIS HOSP Condition: Stable Is patient prescribed a controlled substance at d/c from ED?: Yes Referrals: Dee Dee Martins MD [Primary Care Provider] - 1-2 days Decision to Admit Reason: Admit from EC Decision Date: 05/16/20 Decision Time: 15:40
[2020-05-16 12:40] LABS: Basophils # (A) 0.1 k/uL (0-0.2); Basophils % (A) 2 %; Eosinophils # (A) 0.3 k/uL (0-0.7); Eosinophils % (A) 5 %; HCT 42.6 % (39.0-53.0); HGB 13.9 gm/dL (13.0-17.5); Hypochromasia Slight; Lymphocytes # (A) 2.2 k/uL (1.0-4.8); Lymphocytes % (A) 35 %; MCHC 32.8 g/dL (31.0-37.0); MCV 85.5 fL (80.0-100.0); Mean Platelet Volume 7.6; Monocytes # (A) 0.3 k/uL (0-1.0); Monocytes % (A) 5 %; Neutrophils # (A) 3.2 k/uL (1.3-7.7); Neutrophils % (A) 52 %; Platelet Count 232 k/uL (150-450); Poikilocytosis Slight; RBC 4.98 m/uL (4.30-5.90); RDW 13.6 % (11.5-15.5); WBC 6.1 k/uL (3.8-10.6)
[2020-05-16 12:53] LABS: Prothrombin Time 10.1 sec (9.0-12.0)
[2020-05-16 13:00] LABS: ALT 38 U/L (4-49); AST 41 U/L (17-59); African American GFR (CKD) >90 (>60 ml/min/1.73 sqM); Albumin 4.5 g/dL (3.5-5.0); Alcohol <10 mg/dL; Alkaline Phosphatase 63 U/L (38-126); Anion Gap 11 mmol/L; Blood Urea Nitrogen 12 mg/dL (9-20); Calcium 9.6 mg/dL (8.4-10.2); Carbon Dioxide 20 mmol/L (22-30); Chloride 107 mmol/L (98-107); Glucose 126 mg/dL (74-99); Magnesium 1.6 mg/dL (1.6-2.3); Non-African American GFR(CKD) 87 (>60 ml/min/1.73 sqM); Sodium 138 mmol/L (137-145); Total Protein 7.5 g/dL (6.3-8.2)
[2020-05-16 13:02] LABS: Amphetamine Screen,Urine Not Detected (NotDetected); Barbiturate Screen,Urine Not Detected (NotDetected); Benzodiazepines Screen,Urine Not Detected (NotDetected); Cocaine Screen,Urine Not Detected (NotDetected); Methadone Screen, Urine Not Detected (NotDetected); Opiate Screen,Urine Detected (NotDetected); Oxycodone Screen, Urine Not Detected (NotDetected); Phencyclidine Screen,Urine Not Detected (NotDetected); Tricyclic Antidepressant,Urine Not Detected (NotDetected); Urn Cannabinoid Scrn Not Detected (NotDetected)
--- NOTE | 2020-05-16 13:33 | XR ---
EXAMINATION TYPE: XR chest 2V DATE OF EXAM: 05/16/2020 COMPARISON: Chest x-ray October 18, 2016. HISTORY: Chest pain for 2 weeks. TECHNIQUE: Frontal and lateral views of the chest are obtained. FINDINGS: Low lung volumes redemonstrated. Patchy left basilar linear scarring redemonstrated. There is no no suspicious focal air space opacity, pleural effusion, or pneumothorax seen. The cardiac si lhouette size is within normal limits. Underlying dextroconvex scoliosis centered mid to lower thorac ic spine. IMPRESSION: No acute cardiopulmonary process. No significant change from prior.
[2020-05-16] MEDS ORDERED: ALBUTEROL HFA INHALER INHALATION PRN (22:37)
[2020-05-16] MEDS ORDERED: MAG HYDROX/AL HYDROX/SIMETH 30 ML CUP PO PRN (22:43)
[2020-05-16] MEDS ORDERED: MAGNESIUM HYDROXIDE 2,400 MG/10 ML CUP PO PRN (22:43)
[2020-05-16] MEDS ORDERED: LORazepam 1 MG TAB PO PRN (23:00)
[2020-05-16] MEDS ORDERED: MECLIZINE 25 MG TAB PO PRN (23:00)
[2020-05-16] MEDS ORDERED: ZIPRASIDONE 20 MG VIAL IM PRN (23:00)
[2020-05-16] MEDS ORDERED: traZODone HCL 50 MG TAB PO PRN (23:00)
[2020-05-16] MEDS ORDERED: ACETAMINOPHEN TAB 325 MG TAB PO PRN (23:00)
[2020-05-16] MEDS ORDERED: hydrOXYzine HCL 25 MG TAB PO PRN (23:00)
[2020-05-17] MEDS: FOLIC ACID-VIT B COMPLEX-VIT C 1 CAP PO SCH (08:58)
[2020-05-17] MEDS: GABAPENTIN 300 MG CAP PO SCH ×3 (08:58→22:03)
[2020-05-17] MEDS: amLODIPine 5 MG TAB PO SCH ×2 (08:59→22:03)
[2020-05-17] MEDS: CHOLECALCIFEROL 1,000 UNIT TAB PO SCH (08:59)
[2020-05-17] MEDS: ASPIRIN 325 MG TAB PO SCH ×2 (08:59→22:03)
[2020-05-17] MEDS: PROPRANOLOL 40 MG TAB PO SCH ×2 (08:59→22:03)
[2020-05-17] MEDS: PANTOPRAZOLE 40 MG TABLET PO SCH (08:59)
[2020-05-17] MEDS ORDERED: VITAMIN C PO SCH (09:00)
[2020-05-17] MEDS ORDERED: diphenhydrAMINE 50 MG CAP PO PRN (09:44)
--- NOTE | 2020-05-17 11:25 | P.HP ---
Psychiatric H&P - . H&P Date: 05/17/20 History & Physical: IDENTIFYING DATA: He is a 50-year-old -British male admitted to the psychiatric unit voluntarily with complaints of increasing anxiety, depression and suicidal ideation. HISTORY OF PRESENT ILLNESS: He described worsening depression and anxiety over the last 2 months. Over the last few days prior to admission he began hearing a "voice" telling him to kill himself. He described the voice as that of the "devil". The "devil" told him to hang himself or "jump into the river." He told his about his experiences including the "voices" and the suicidal thoughts. He alleged that he frequently "hears voices". He described a mixture of experiences where some appeared to be sure auditory hallucinations. For example, the experience that occurred prior to admission possibly was a true auditory hallucination. He described an auditory experience that he described as the devil speaking to him. The "devil" commended him to hang himself or jump into the river. He also described a long history of anxiety that began over 15 years ago. He perseverated during most of the interview on a history of benzodiazepine use and the struggles he had with discontinuing benzodiazepines. He is quite dramatic and describing his experiences with benzodiazepines withdrawal. For example, he described the acute withdrawal as a pain in his mind similar to what one would imagine if one were burned with a blow torch. He boasted that he discontinued benzodiazepine 5 years ago. It appears that his increased distress was related to feeling [place] [facility] He talked about having changed therapists and being unable to schedule an appointment with his new therapist. He also complained of the recent appointment with his psychiatrist was rescheduled. I spoke with the [facility] liaison. His case was closed at [facility] due to repeated no shows and cancellations. He described chronic feelings depression that fluctuates in intensity. He denied currently experiencing suicidal thoughts but described ongoing hopelessness and helplessness regarding his chronic anxiety and depression. He described chronic anxiety that fluctuates in his intensity and interferes with his ability to function. He denied a history of elevated mood or sustained irritability consistent with germania or hypomania. He denied experiencing ideas of reference, thought insertion, thought broadcasting or thought control. He denied use of alcohol or drugs. PAST PSYCHIATRIC HISTORY: This would be his fourth psychiatric hospitalization. He was admitted to [facility] approximate 15 years ago and to a psychiatric facility in [facility] 3 times. The admissions were related to suicidal ideation, depression and issues with anxiety and use of benzodiazepines. Appendectomy complained that he had been prescribed candelario zodiazepines for 15 years and struggled for years to discontinue Xanax. Hold the admissions to this psychiatric hospital [facility] related to his attempts to reduce or stop his use of benzodiazepines. He has been Living from [facility] for 5 years since he moved from [place] back to [place]. He is currently not enrolled in outpatient mental health services but had been engaged with community mental health. PAST MEDICAL HISTORY: He has a history of osteoarthritis, renal disease, hypertension and GERD. He is status post bilateral hip replacements. ALLERGIES: Caffeine, clonazepam SUBSTANCE USE HISTORY: He describes a history of alcohol use and alcohol use problems beginning in adolescence. At his worst he was consuming 2/5 of vodka per day. He was in a couple" of substance abuse treatment programs and briefly attended Alcoholics Anonymous. He has been abstinent from alcohol for 5 years. FAMILY PSYCHIATRIC/SUBSTANCE USE HISTORY: He described a strong family history of alcohol use problems. His brother had history of alcohol use problems and depression. LEGAL HISTORY: denied SOCIAL HISTORY: His born and raised in [place]. He attended high school until the 12th grade but did not graduate and did not obtain a GED. He was trained as a [employer] and worked in construction. He has been unemployed for the last 15 years and receives social security disability. He is buried for approximate 4 years. He has 3 children are ages is employed full-time. MENTAL STATUS EXAM: He presented as a tall moderately obese -British male who was pleasant on approach. He made eye contact and attended to the interview. He had no distinguishing features or prominent physical abnormalities. He had a blunted but bright facial expression. He was alert and oriented to person, place and time. He had slight psychomotor retardation but no abnormal involuntary movements. His speech was spontaneous with normal rate, rhythm and volume. His affect was anxious but stable and appropriate. He denied current suicidal ideation or wishes. He denied homicidal ideation. Expresses feelings of hopelessness and helplessness particularly with regard to his chronic mental health symptoms. He ruminated about his mental health care and his struggles with benzodiazepine use. He did not express ideas reference or paranoid ideations. He described a belief that the devil speaks to him and attempts to direct his behavior. He is unsure whether this represents a delusional belief. His thinking was concrete but his associations were coherent, logical and goal directed. He did not demonstrate perseveration, neologisms or blocking. He denied current hallucinations but described recent episode was that may represent to auditory hallucinations. Global impression of intellect is average. He is aware of his illness and need for treatment. STRENGTHS: Relatively good physical health, supportive family, strong yazidism conviction, abstinence from alcohol and benzodiazepines WEAKNESSES: Poor engagement with mental health services IMPRESSION: A 50-year-old -British male who has a complicated history characterized by alcohol dependence, benzodiazepine dependence, anxiety and depression. [facility] describing auditory hallucinations and suicidal ideation. His distrust appears to be related to difficulties with engagement with outpatient mental health services. He remains abstinent from alcohol and benzodiazepines. He should be treated inpatient basis with a combination of psychotropic medications and multimodal therapy. PRINCIPLE DIAGNOSIS: Brief psychotic disorder, generalized anxiety disorder, major depressive disorder recurrent moderate, poor compliance with mental health treatment, benzodiazepine use disorder moderate and sustained remission, alcohol use disorder severe in sustained remission RECOMMENDATION: Admitted to the psychiatric unit. Safety precautions. Consult medicine for initial physical exam and medical history. machine farmworker completed initial psychosocial assessment coordinate discharge and aftercare services. Continue Paxil 20 mg daily and Vistaril 25 mg every 8 hours when necessary for anxiety. Begin a trial of Seroquel 25 mg twice a day when necessary for treatment of anxiety. At patient's request prescribed Benadryl 50 mg at bedtime when necessary for sleep. Continue other medications for treatment of his chronic medical conditions including Ventolin inhaler, Norvasc, aspirin, vitamin D3, Neurontin, Naprosyn, Protonix, Inderal. Encourage participation in therapeutic groups and activities. Evaluate clinical status response to treatment daily basis. Allergies Allergy/AdvReac Type Severity Reaction Status Date / Time caffeine AdvReac SHAKING Verified 05/17/20 04:08 clonazepam [From Klonopin] AdvReac shaking Verified 05/17/20 04:08 Vital Signs Temp 97.8 F 05/17/20 06:17 Pulse 89 05/17/20 06:17 Resp 20 05/17/20 06:17 BP 119/71 05/17/20 06:17 Pulse Ox 97 05/16/20 21:56 Intake & Output 05/16/20 05/17/20 05/17/20 18:59 06:59 18:59 Weight 126.552 kg 126.552 kg Laboratory Last Values WBC 6.1 k/uL (3.8-10.6) 05/16/20 12:27 RBC 4.98 m/uL (4.30-5.90) 05/16/20 12:27 Hgb 13.9 gm/dL (13.0-17.5) 05/16/20 12:27 Hct 42.6 % (39.0-53.0) 05/16/20 12:27 MCV 85.5 fL (80.0-100.0) 05/16/20 12:27 MCH 28.0 pg (25.0-35.0) 05/16/20 12:27 MCHC 32.8 g/dL (31.0-37.0) 05/16/20 12:27 RDW 13.6 % (11.5-15.5) 05/16/20 12:27 Plt Count 232 k/uL (150-450) 05/16/20 12:27 Neutrophils % 52 % 05/16/20 12:27 Lymphocytes % 35 % 05/16/20 12:27 Monocytes % 5 % 05/16/20 12:27 Eosinophils % 5 % 05/16/20 12:27 Basophils % 2 % 05/16/20 12:27 Neutrophils # 3.2 k/uL (1.3-7.7) 05/16/20 12:27 Lymphocytes # 2.2 k/uL (1.0-4.8) 05/16/20 12:27 Monocytes # 0.3 k/uL (0-1.0) 05/16/20 12:27 Eosinophils # 0.3 k/uL (0-0.7) 05/16/20 12:27 Basophils # 0.1 k/uL (0-0.2) 05/16/20 12:27 Hypochromasia Slight 05/16/20 12:27 Poikilocytosis Slight 05/16/20 12:27 PT 10.1 sec (9.0-12.0) 05/16/20 12:27 INR 1.0 (<1.2) 05/16/20 12:27 APTT 26.0 sec (22.0-30.0) 05/16/20 12:27 Sodium 138 mmol/L (137-145) 05/16/20 12:27 Potassium 4.0 mmol/L (3.5-5.1) 05/16/20 12:27 Chloride 107 mmol/L (98-107) 05/16/20 12:27 Carbon Dioxide 20 mmol/L (22-30) L 05/16/20 12:27 Anion Gap 11 mmol/L 05/16/20 12:27 BUN 12 mg/dL (9-20) 05/16/20 12:27 Creatinine 1.00 mg/dL (0.66-1.25) 05/16/20 12:27 Est GFR (CKD-EPI)AfAm >90 (>60 ml/min/1.73 sqM) 05/16/20 12:27 Est GFR (CKD-EPI)NonAf 87 (>60 ml/min/1.73 sqM) 05/16/20 12:27 Glucose 126 mg/dL (74-99) H 05/16/20 12:27 Calcium 9.6 mg/dL (8.4-10.2) 05/16/20 12:27 Magnesium 1.6 mg/dL (1.6-2.3) 05/16/20 12:27 Total Bilirubin 1.0 mg/dL (0.2-1.3) 05/16/20 12:27 AST 41 U/L (17-59) 05/16/20 12:27 ALT 38 U/L (4-49) 05/16/20 12:27 Alkaline Phosphatase 63 U/L (38-126) 05/16/20 12:27 Troponin I <0.012 ng/mL (0.000-0.034) 05/16/20 12:27 Total Protein 7.5 g/dL (6.3-8.2) 05/16/20 12:27 Albumin 4.5 g/dL (3.5-5.0) 05/16/20 12:27 Triglycerides 231 mg/dL (<150) H 05/17/20 09:45 Cholesterol 216 mg/dL (<200) H 05/17/20 09:45 LDL Cholesterol, Calc 132 mg/dL (0-99) H 05/17/20 09:45 HDL Cholesterol 38 mg/dL (40-60) L 05/17/20 09:45 TSH 0.867 mIU/L (0.465-4.680) 05/17/20 09:45 Urine Opiates Screen Detected (NotDetected) H 05/16/20 12:44 Ur Oxycodone Screen Not Detected (NotDetected) 05/16/20 12:44 Urine Methadone Screen Not Detected (NotDetected) 05/16/20 12:44 Ur Propoxyphene Screen Not Detected (NotDetected) 05/16/20 12:44 Ur Barbiturates Screen Not Detected (NotDetected) 05/16/20 12:44 U Tricyclic Antidepress Not Detected (NotDetected) 05/16/20 12:44 Ur Phencyclidine Scrn Not Detected (NotDetected) 05/16/20 12:44 Ur Amphetamines Screen Not Detected (NotDetected) 05/16/20 12:44 U Methamphetamines Scrn Not Detected (NotDetected) 05/16/20 12:44 U Benzodiazepines Scrn Not Detected (NotDetected) 05/16/20 12:44 Urine Cocaine Screen Not Detected (NotDetected) 05/16/20 12:44 U Marijuana (THC) Screen Not Detected (NotDetected) 05/16/20 12:44 Serum Alcohol <10 mg/dL 05/16/20 12:27 05/17/20 11:00
[2020-05-17] MEDS: MAGNESIUM SULFATE-D5W PMX 1 GM in DEXTROSE/WATER 1 100ML.BAG IVPB SCH ×2 (11:51→11:57)
[2020-05-17] MEDS: MAGNESIUM OXIDE 400 MG TAB PO SCH ×2 (11:56→22:03)
--- NOTE | 2020-05-17 12:33 | P.CONS ---
History of Present Illness - Reason for Consult Hypertension, osteoarthritis - History of Present Illness 50-year-old male was admitted to psychiatric floor for anxiety, suicidal ideations. Patient denied any fever chills nausea vomiting abdominal pain dysuria. Patient is comparing of pain in the right knee and he believes it's secondary to rheumatoid arthritis patient appears to have osteoarthritis patient doesn't have any rheumatoid deformities. Patient had bilateral hip replacement. Patient is already on nonsteroidal anti-inflammatories for his pain. Review of Systems REVIEW OF SYSTEMS: CONSTITUTIONAL: No fever, no malaise, no fatigue. HEENT: No recent visual problems or hearing problems. Denied any sore throat. CARDIOVASCULAR: No chest pain, orthopnea, PND, no palpitations, no syncope. PULMONARY: No shortness of breath, no cough, no hemoptysis. GASTROINTESTINAL: No diarrhea, no nausea, no vomiting, no abdominal pain. NEUROLOGICAL: No headaches, no weakness, no numbness. HEMATOLOGICAL: Denies any bleeding or petechiae. GENITOURINARY: Denies any burning micturition, frequency, or urgency. MUSCULOSKELETAL/RHEUMATOLOGICAL: As mentioned in HPI ENDOCRINE: Denies any polyuria or polydipsia. The rest of the 14-point review of systems is negative. 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 Anemia, obesity, GERD, depression, schizophrenia, CHRONIC BACK PAIN History of Any Multi-Drug Resistant Organisms: None Reported Past Surgical History: Back Surgery, Joint Replacement, Orthopedic Surgery Additional Past Surgical History / Comment(s): cyst removed from throat; pain procedure in [place], EPIDURAL INJECTIONS, right hip replacement Past Anesthesia/Blood Transfusion Reactions: No Reported Reaction Smoking Status: Former smoker - Past Family History Mother Family Medical History: No Reported History Medications and Allergies Home Medications Medication Instructions Recorded Confirmed Type Propranolol [Inderal] 40 mg PO BID #60 tab 10/26/16 05/16/20 Rx Omeprazole 20 mg PO DAILY #20 capsule. 02/26/17 05/16/20 Rx Meclizine [Antivert] 25 mg PO BID PRN 05/31/17 05/16/20 History Cholecalciferol [Vitamin D3] 1,000 unit PO DAILY 11/15/17 05/16/20 History Gabapentin [Neurontin] 300 mg PO TID 12/23/17 05/16/20 History Acetaminophen with Codeine 1 tab PO TID PRN 05/16/20 05/16/20 History [Tylenol w/Codeine #4 Tablet] Albuterol Inhaler [Ventolin Hfa 2 puff INHALATION RT-Q6H PRN 05/16/20 05/16/20 History Inhaler] Aspirin EC [Ecotrin] 325 mg PO BID 05/16/20 05/16/20 History Naproxen 500 mg PO BID PRN 05/16/20 05/16/20 History PARoxetine [Paxil] 20 mg PO HS 05/16/20 05/16/20 History Vitamin B Complex 1 cap PO DAILY 05/16/20 05/16/20 History Vitamin C 100mg 100 mg PO DAILY 05/16/20 05/16/20 History amLODIPine [Norvasc] 5 mg PO BID 05/16/20 05/16/20 History hydrOXYzine HCL [Atarax] 20 mg PO Q8H PRN 05/16/20 05/16/20 History traZODone HCL 25 - 50 mg PO HS PRN 05/16/20 05/16/20 History Allergies Allergy/AdvReac Type Severity Reaction Status Date / Time caffeine AdvReac SHAKING Verified 05/17/20 04:08 clonazepam [From Klonopin] AdvReac shaking Verified 05/17/20 04:08 Physical Exam Vitals: Vital Signs Temp Pulse Pulse Resp BP BP Pulse Ox 05/17/20 06:17 97.8 F 89 20 119/71 05/16/20 21:56 98.6 F 71 18 134/74 97 05/16/20 21:48 98.0 F 74 18 137/96 99 05/16/20 14:00 18 Intake and Output 05/16/20 05/17/20 05/17/20 22:59 06:59 14:59 Other: Weight 126.552 kg PHYSICAL EXAMINATION: GENERAL: The patient is alert and oriented x3, not in any acute distress. Well developed, well nourished. HEENT: Pupils are round and equally reacting to light. EOMI. No scleral icterus. No conjunctival pallor. Normocephalic, atraumatic. No pharyngeal erythema. No thyromegaly. CARDIOVASCULAR: S1 and S2 present. No murmurs, rubs, or gallops. PULMONARY: Chest is clear to auscultation, no wheezing or crackles. ABDOMEN: Soft, nontender, nondistended, normoactive bowel sounds. No palpable organomegaly. MUSCULOSKELETAL: Mild swelling of the right knee. EXTREMITIES: No cyanosis, clubbing, or pedal edema. NEUROLOGICAL: Gross neurological examination did not reveal any focal deficits. SKIN: No rashes. Results CBC & Chem 7: 05/16/20 12:27 05/16/20 12:27 Labs: Abnormal Lab Results - Last 24 Hours (Table) 05/16/20 05/16/20 05/17/20 Range/Units 12:27 12:44 09:45 Carbon Dioxide 20 L (22-30) mmol/L Glucose 126 H (74-99) mg/dL Triglycerides 231 H (<150) mg/dL Cholesterol 216 H (<200) mg/dL LDL Cholesterol, Calc 132 H (0-99) mg/dL HDL Cholesterol 38 L (40-60) mg/dL Urine Opiates Screen Detected H (NotDetected) Assessment and Plan Plan: -Hypertension: Patient blood pressure is well controlled at this time continue with amlodipine and propranolol -Osteoarthritis multiple joints primary osteoarthritis continue with counselor Dilantin him at tn -depression -Gastroesophageal reflux disease for which patient is already on the Protonix which can be continued -Obesity No further recommendations from medicine perspective will follow on as-needed basis.
[2020-05-17 18:45] LABS: Hemoglobin A1C 5.1 % (4.0-6.0)
[2020-05-17] MEDS: PARoxetine 20 MG TAB PO SCH (22:01)
[2020-05-17] MEDS: QUEtiapine 25 MG TAB PO SCH ×2 (22:01→23:08)
[2020-05-18 06:52] VITALS: RESP 16
[2020-05-18] MEDS: QUEtiapine 25 MG TAB PO SCH ×2 (08:54→16:22)
[2020-05-18] MEDS: PROPRANOLOL 40 MG TAB PO SCH ×2 (08:55→21:14)
[2020-05-18] MEDS: FOLIC ACID-VIT B COMPLEX-VIT C 1 CAP PO SCH (08:55)
[2020-05-18] MEDS: PANTOPRAZOLE 40 MG TABLET PO SCH (08:55)
[2020-05-18] MEDS: ASPIRIN 325 MG TAB PO SCH ×2 (08:55→21:14)
[2020-05-18] MEDS: MAGNESIUM OXIDE 400 MG TAB PO SCH ×2 (08:55→21:14)
[2020-05-18] MEDS: CHOLECALCIFEROL 1,000 UNIT TAB PO SCH (08:55)
[2020-05-18] MEDS: GABAPENTIN 300 MG CAP PO SCH ×3 (08:55→20:27)
[2020-05-18] MEDS: amLODIPine 5 MG TAB PO SCH ×2 (08:55→20:27)
[2020-05-18] MEDS: NAPROXEN 250 MG TAB PO PRN (09:37)
--- NOTE | 2020-05-18 11:29 | P.PN ---
Progress Note - Text Progress Note Date: 05/18/20 Clinical Problems: Brief psychotic disorder, generalized anxiety disorder, major depressive disorder recurrent moderate, poor compliance with mental health treatment, benzodiazepine use disorder moderate and sustained remission, alcohol use disorder severe in sustained remission Interim history: I reviewed the medical record, interviewed the patient and discussed his treatment and treatment plan during team meeting. He complained of poor sleep and requested Benadryl at nighttime. I reminded him that I prescribe Benadryl yesterday but the order was a when necessary and he would need to ask for the medication. He denied side effects to the 25 mg dose of Seroquel and reported a decrease in anxiety during the day. He agreed to a trial of Seroquel 100 mg at bedtime for sleep instead of the Benadryl. Otherwise she described himself as feeling well. He is happy that we are arranging aftercare services through [facility] (he admits that he had not taken his psychotropic medications in 2 months). He denied feeling depressed or having thoughts of suicide. He denied that he is currently experiencing auditory hallucinations. He reports fluctuating level of subjective anxiety that is currently not severe, troubling or interfering with his ability to concentrate and socialize. Mental status exam: He presented as a casually groomed 50-year-old after medical male who looked younger than his stated age. He made eye contact and attended to the interview. He showed no abnormality of psychomotor activity. His speech was spontaneous with normal rate, rhythm and volume. His affect was anxious but stable and appropriate. He denied suicidal ideation, wishes or homicidal ideation. He denied feeling hopeless, helpless or worthless. He denied ideas of reference, thought insertion, thought broadcasting or thought control. He denied feeling paranoid, suspicious and did not express delusional thoughts. His thinking was abstract and associations were coherent, logical and goal directed. Assessment: He is much improved from admission. Because today is a day () and [facility] is closed, I did not recommend discharge without appointment scheduled with [facility]. Plan: Continue hospital admission was Discharge on 05/19/2020 after social service technician schedules appointments with community mental health. Continue Paxil 20 mg daily, Seroquel 25 mg by mouth twice a day and begin Seroquel 100 mg at bedtime. Continue Atarax 25 mg by mouth every 4 hours when necessary for anxiety. Avoid benzodiazepines. Encourage participation in therapeutic groups and activities. Evaluate clinical status response to treatment daily basis.
[2020-05-18] MEDS ORDERED: QUEtiapine 100 MG TAB PO SCH (21:00)
[2020-05-18] MEDS: PARoxetine 20 MG TAB PO SCH (21:14)
[2020-05-19] MEDS: NAPROXEN 250 MG TAB PO PRN (07:10)
[2020-05-19] MEDS: PANTOPRAZOLE 40 MG TABLET PO SCH (08:45)
[2020-05-19] MEDS: MAGNESIUM OXIDE 400 MG TAB PO SCH (08:45)
[2020-05-19] MEDS: CHOLECALCIFEROL 1,000 UNIT TAB PO SCH (08:45)
[2020-05-19] MEDS: FOLIC ACID-VIT B COMPLEX-VIT C 1 CAP PO SCH (08:45)
[2020-05-19] MEDS: QUEtiapine 25 MG TAB PO SCH (08:45)
[2020-05-19] MEDS: PROPRANOLOL 40 MG TAB PO SCH (08:45)
[2020-05-19] MEDS: amLODIPine 5 MG TAB PO SCH (08:45)
[2020-05-19] MEDS: ASPIRIN 325 MG TAB PO SCH (08:45)
[2020-05-19] MEDS: GABAPENTIN 300 MG CAP PO SCH (08:45)
--- NOTE | 2020-05-19 11:09 | P.DS ---
Providers Date of admission: 05/16/20 21:31 Attending physician: Ismael Ordoñez MD Consults: 05/16/20 22:43 Consult Physician Routine Consulting Provider: João Ann Consult Reason/Comments: H&P and medical Do you want consulting provider notified?: Yes Primary care physician: Lakshmi Jordan Charbal - Discharge Diagnosis(es) (1) Suicidal ideation Current Visit: Yes Status: Resolved Priority: Low (2) Brief psychotic disorder Current Visit: Yes Status: Resolved Priority: Low (3) Agoraphobia Current Visit: Yes Status: Chronic Priority: High (4) Major depressive disorder, recurrent episode Current Visit: Yes Status: Chronic Priority: Low (5) Sedative, hypnotic or anxiolytic use disorder, severe, in sustained remission Current Visit: Yes Status: Resolved Priority: High (6) Alcohol use disorder, severe, in sustained remission Current Visit: Yes Status: Resolved Priority: High Hospital Course: HISTORY: He is a 50-year-old after [place] male admitted to the psychiatric unit voluntarily with complaints of increasing suicidal ideation and auditory hallucinations. He also described increasing depression and anxiety over the 2 months prior to admission. He described having passive suicidal thoughts where he wished he were . He also described experiencing auditory hallucinations that he believes was the voice of the devil telling him to hang himself or jump into a river. He attributed to the change in his condition to his difficulties with obtaining mental health treatment as result of the pandemic. He also revealed that he was discharge from [facility] due to his noncompliance. He has been without psychotropic medications since he was discharged from [facility]. His past history is significant for alcohol use problems as well as benzodiazepine dependence. He is spent abstinent from alcohol for 5 years and absent from benzodiazepines for approximately 6 months. HOSPITAL COURSE: We admitted him to the psychiatric unit under the care of this marine underwriter. We provided a comprehensive biopsychosocial assessment. The dairy consultant renal medicine specialist completed initial physical exam and medical history and diagnosis hypertension, osteoarthritis and gastroesophageal reflux. Resumed his outpatient dose of Paxil 20 mg daily as well as when necessary Atarax 25 mg every 8 hours when necessary for anxiety. At his request, we avoided the use of benzodiazepines. We continued his other medications including Ventolin inhaler, Norvasc, aspirin, Neurontin, Antivert, Protonix and Inderal. We initiated treatment with Seroquel 25 mg by mouth twice a day for the treatment of subjective anxiety. He also complained of continued initial insomnia and poor sleep. He felt no benefit with it of Benadryl or trazodone. We prescribed Seroquel 100 mg at bedtime for sleep with some success. He participated in therapeutic groups and activities. He posed no management problem and had no episodes of behavioral dyscontrol. His suicidal ideation and auditory hallucinations remitted soon after discharge. MENTAL STATUS ON DISCHARGE: At time of discharge she presented as a tall neatly groomed 50-year-old male who was pleasant on approach. He made eye contact and attended the interview. He had no distinguishing features or prominent physical abnormalities. He had a blunted but bright facial expression. He is alert and oriented to person, place and time. He showed no abnormality of psychomotor activity. A slow but steady gait. His speech was spontaneous with normal rate, rhythm and volume. His affect was bright and reactive. He denied suicidal ideation or wishes. He denied homicidal ideation. He denied feeling hopeless, helpless or worthless. He ruminated about his chronic anxiety symptoms and his fear of leaving the house. Didn't express ideas reference, paranoid ideation or delusions. His thinking was concrete and associations were coherent, logical and goal directed. He denied hallucinations and did not appear to be responding to internal stimuli. DISPOSITION: His discharge psychotropic medications include Vistaril 25 mg by mouth 3 times a day when necessary for anxiety, Paxil 20 mg daily, Seroquel 25 mg twice a day and 100 mg at bedtime. He has a follow-up appointment scheduled with [facility] 05/23/2020 at 10 AM. Patient Condition at Discharge: Stable Plan - Discharge Summary Discharge Rx Participant: No New Discharge Prescriptions: New Magnesium Oxide [Mag-Ox] 400 mg PO BID tab Magnesium Hydroxide [Milk of Magnesia Concentrate] 2,400 mg PO DAILY PRN ml PRN Reason: Constipation QUEtiapine [SEROquel] 25 mg PO BID@0900,1600 #60 tab QUEtiapine [SEROquel] 100 mg PO HS #30 tab Acetaminophen Tab [Tylenol] 650 mg PO Q4HR PRN tab PRN Reason: Pain/Discomfort Continue Propranolol [Inderal] 40 mg PO BID #60 tab Omeprazole 20 mg PO DAILY #20 capsule. Meclizine [Antivert] 25 mg PO BID PRN PRN Reason: Vertigo Cholecalciferol [Vitamin D3 (25 Mcg = 1000 Iu)] 1,000 unit PO DAILY Gabapentin [Neurontin] 300 mg PO TID Vitamin B Complex 1 cap PO DAILY PARoxetine [Paxil] 20 mg PO HS Naproxen 500 mg PO BID PRN PRN Reason: Pain hydrOXYzine HCL [Atarax] 20 mg PO Q8H PRN PRN Reason: Anxiety Aspirin EC [Ecotrin] 325 mg PO BID amLODIPine [Norvasc] 5 mg PO BID Acetaminophen with Codeine [Tylenol w/Codeine #4 Tablet] 1 tab PO TID PRN PRN Reason: Pain Vitamin C 100mg 100 mg PO DAILY Albuterol Inhaler [Ventolin Hfa Inhaler] 2 puff INHALATION RT-Q6H PRN #2 puff PRN Reason: Shortness Of Breath Discontinued traZODone HCL 25 - 50 mg PO HS PRN PRN Reason: Insomnia Discharge Medication List Propranolol [Inderal] 40 mg PO BID #60 tab 10/26/16 [Rx] Omeprazole 20 mg PO DAILY #20 capsule. 02/26/17 [Rx] Meclizine [Antivert] 25 mg PO BID PRN 05/31/17 [History] Cholecalciferol [Vitamin D3 (25 Mcg = 1000 Iu)] 1,000 unit PO DAILY 11/15/17 [History] Gabapentin [Neurontin] 300 mg PO TID 12/23/17 [History] Acetaminophen with Codeine [Tylenol w/Codeine #4 Tablet] 1 tab PO TID PRN 05/16/20 [History] Aspirin EC [Ecotrin] 325 mg PO BID 05/16/20 [History] Naproxen 500 mg PO BID PRN 05/16/20 [History] PARoxetine [Paxil] 20 mg PO HS 05/16/20 [History] Vitamin B Complex 1 cap PO DAILY 05/16/20 [History] Vitamin C 100mg 100 mg PO DAILY 05/16/20 [History] amLODIPine [Norvasc] 5 mg PO BID 05/16/20 [History] hydrOXYzine HCL [Atarax] 20 mg PO Q8H PRN 05/16/20 [History] Acetaminophen Tab [Tylenol] 650 mg PO Q4HR PRN tab 05/19/20 [Rx] Albuterol Inhaler [Ventolin Hfa Inhaler] 2 puff INHALATION RT-Q6H PRN #2 puff 05/19/20 [Rx] Magnesium Hydroxide [Milk of Magnesia Concentrate] 2,400 mg PO DAILY PRN ml 05/19/20 [Rx] Magnesium Oxide [Mag-Ox] 400 mg PO BID tab 05/19/20 [Rx] QUEtiapine [SEROquel] 25 mg PO BID@0900,1600 #60 tab 05/19/20 [Rx] QUEtiapine [SEROquel] 100 mg PO HS #30 tab 05/19/20 [Rx] Follow up Appointment(s)/Referral(s): [facility] [Outside] - 05/23/20 10:00 am (by phone with intake) Dee Dee Martins MD [Primary Care Provider] - 1-2 days Activity/Diet/Wound Care/Special Instructions: Activity and diet as tolerated. Avoid the use of street drugs and alcohol. Take all medications as prescribed. When you are in need of refills on your medications please contact your medical provider and/or outpatient psychiatrist to have this done. Please go to scheduled outpatient appointment for aftercare treatment. If symptoms return or become worse, call the crisis line at and/or go to the nearest emergency room for evaluation. Discharge Disposition: HOME SELF-CARE
[2020-05-19 11:42] VITALS: BP 114/74; PULSE 97; TEMP 97.5
== END 2020-05-19 12:00 | disposition home or self-care (01) | DRG 885 ==
LOC: EC 11:55 → 3MHU 21:31
PROVIDERS: ADMIT Psychiatry & Neurology Psychiatry; ATTEND Psychiatry & Neurology Psychiatry
DX: F33.3 Major depressive disorder, recurrent, severe with psychotic symptoms (principal); R45.851 Suicidal ideations; F41.1 Generalized anxiety disorder; G47.00 Insomnia, unspecified; I10 Essential (primary) hypertension; M15.9 Polyosteoarthritis, unspecified; M06.9 Rheumatoid arthritis, unspecified; Z79.82 Long term (current) use of aspirin; F40.00 Agoraphobia, unspecified; F10.21 Alcohol dependence, in remission; F13.21 Sedative, hypnotic or anxiolytic dependence, in remission; F17.210 Nicotine dependence, cigarettes, uncomplicated; Z79.899 Other long term (current) drug therapy; Z81.8 Family history of other mental and behavioral disorders; Z81.1 Family history of alcohol abuse and dependence; Z91.19 Patient's noncompliance with other medical treatment and regimen; Z96.643 Presence of artificial hip joint, bilateral; K21.9 Gastro-esophageal reflux disease without esophagitis; Z79.1 Long term (current) use of non-steroidal anti-inflammatories (NSAID); M54.9 Dorsalgia, unspecified; G89.29 Other chronic pain; Z88.8 Allergy status to other drugs, medicaments and biological substances
CPT/HCPCS: 36415; 71046; 80053; 80061; 80306; 80320; 83036; 83735; 84443; 84484; 85025; 85610; 85730; 93005; 99285

== ENCOUNTER 2020-06-26 14:40 | Emergency (ER) | payer OTHER ==
[2020-06-26 14:58] VITALS: RESP 20; TEMP 98
[2020-06-26] MEDS ORDERED: IBUPROFEN 600 MG TAB PO STA (15:09)
--- NOTE | 2020-06-26 15:12 | ED ---
Psych HPI - General Chief Complaint: Psychiatric Symptoms Stated Complaint: Anxiety Time Seen by Provider: 06/26/20 14:47 Source: patient, EMS Mode of arrival: EMS - History of Present Illness Initial Comments: 50-year-old male patient presents to the emergency department today for evaluation because he felt that he was choking on a pill he tried to swallow. Patient now believes that it was someone trying to poison him. States that someone has come from [place] and has been following in trying to kill him. He is not sure who it is. Patient does admit to suicidal ideation a couple of days ago. Denies any current suicidal ideation or homicidal ideation. States that he does feel that his throat is sore due to the poison. States he is having trouble breathing. Patient denies any recent rash, fever, chills, cough, chest pain, abdominal pain, nausea, vomiting, diarrhea, constipation, back pain, numbness, tingling, dizziness, weakness, hematuria, dysuria, urinary urgency, urinary frequency, headache, visual changes, or any other complaints. - Related Data Home Medications Medication Instructions Recorded Confirmed Meclizine [Antivert] 25 mg PO BID PRN 05/31/17 05/16/20 Cholecalciferol [Vitamin D3 (25 1,000 unit PO DAILY 11/15/17 05/16/20 Mcg = 1000 Iu)] Gabapentin [Neurontin] 300 mg PO TID 12/23/17 05/16/20 Acetaminophen with Codeine 1 tab PO TID PRN 05/16/20 05/16/20 [Tylenol w/Codeine #4 Tablet] Aspirin EC [Ecotrin] 325 mg PO BID 05/16/20 05/16/20 Naproxen 500 mg PO BID PRN 05/16/20 05/16/20 PARoxetine [Paxil] 20 mg PO HS 05/16/20 05/16/20 Vitamin B Complex 1 cap PO DAILY 05/16/20 05/16/20 Vitamin C 100mg 100 mg PO DAILY 05/16/20 05/16/20 amLODIPine [Norvasc] 5 mg PO BID 05/16/20 05/16/20 hydrOXYzine HCL [Atarax] 20 mg PO Q8H PRN 05/16/20 05/16/20 Previous Rx's Medication Instructions Recorded Propranolol [Inderal] 40 mg PO BID #60 tab 10/26/16 Omeprazole 20 mg PO DAILY #20 capsule. 02/26/17 Acetaminophen Tab [Tylenol] 650 mg PO Q4HR PRN tab 05/19/20 Albuterol Inhaler [Ventolin Hfa 2 puff INHALATION RT-Q6H PRN #2 05/19/20 Inhaler] puff Magnesium Hydroxide [Milk of 2,400 mg PO DAILY PRN ml 05/19/20 Magnesia Concentrate] Magnesium Oxide [Mag-Ox] 400 mg PO BID tab 05/19/20 QUEtiapine [SEROquel] 25 mg PO BID@0900,1600 #60 tab 05/19/20 QUEtiapine [SEROquel] 100 mg PO HS #30 tab 05/19/20 Allergies Allergy/AdvReac Type Severity Reaction Status Date / Time caffeine AdvReac SHAKING Verified 05/17/20 04:08 clonazepam [From Klonopin] AdvReac shaking Verified 05/17/20 04:08 Review of Systems ROS Statement: Those systems with pertinent positive or pertinent negative responses have been documented in the HPI. ROS Other: All systems not noted in ROS Statement are negative. 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 Anemia, obesity, GERD, depression, schizophrenia, CHRONIC BACK PAIN History of Any Multi-Drug Resistant Organisms: None Reported Past Surgical History: Back Surgery, Joint Replacement, Orthopedic Surgery Additional Past Surgical History / Comment(s): cyst removed from throat; pain procedure in [place], EPIDURAL INJECTIONS, right hip replacement Past Anesthesia/Blood Transfusion Reactions: No Reported Reaction Past Psychological History: Anxiety, Bipolar, Schizophrenia Smoking Status: Former smoker Past Alcohol Use History: None Reported Past Drug Use History: None Reported - Past Family History Mother Family Medical History: No Reported History General Exam Limitations: no limitations General appearance: alert, in no apparent distress, other (This well-developed, well-nourished adult male patient in no acute distress. Vital signs upon presentation are temperature 98.0F, pulse 67, respirations 20, blood pressure 153/115, pulse ox 98% on room air.) ENT exam: Present: mucous membranes moist, other (No tonsillar hypertrophy, no tonsillar exudate, tonsils are symmetric uvula is midline. Tolerating oral secretions without difficulty.). Absent: normal exam, normal oropharynx (Pharyngeal erythema) Respiratory exam: Present: normal lung sounds bilaterally. Absent: respiratory distress, wheezes, rales, rhonchi, stridor Cardiovascular Exam: Present: regular rate, normal rhythm, normal heart sounds. Absent: systolic murmur, diastolic murmur, rubs, gallop, clicks GI/Abdominal exam: Present: soft, normal bowel sounds. Absent: distended, tenderness, guarding, rebound, rigid Neurological exam: Present: alert, CN II-XII intact. Absent: oriented X3 (Oriented 2) Psychiatric exam: Present: agitated, anxious. Absent: homicidal ideation, suicidal ideation Skin exam: Present: warm, dry, intact, normal color. Absent: rash Course Vital Signs 06/26/20 14:49 Temperature 98 F Pulse Rate 67 Respiratory 20 Rate Blood Pressure 153/115 O2 Sat by Pulse 98 Oximetry Medical Decision Making - Medical Decision Making 50-year-old male patient presents to the emergency department today for evaluation of throat discomfort, is reporting some antidepressant have an believes someone is following in trying to kill him. States he did have suicidal ideation couple of days ago but is not having suicidal ideation today. He is well known to our mental health department. He was cleared medically. He was seen and evaluated by the emergency psychiatric nurse. They did speak to the psychiatrist did do feel that state to be discharging the patient home. He is instructed to follow-up with outpatient mental services as directed. He is instructed to follow-up with his primary care physician for recheck in 1-2 days. Return parameters were discussed in detail. He verbalizes understanding and agrees with this plan. - Lab Data Lab Results 06/26/20 Range/Units 15:38 Urine Opiates Screen Detected H (NotDetected) Ur Oxycodone Screen Not Detected (NotDetected) Urine Methadone Screen Not Detected (NotDetected) Ur Propoxyphene Screen Not Detected (NotDetected) Ur Barbiturates Screen Not Detected (NotDetected) U Tricyclic Antidepress Detected H (NotDetected) Ur Phencyclidine Scrn Not Detected (NotDetected) Ur Amphetamines Screen Not Detected (NotDetected) U Methamphetamines Scrn Not Detected (NotDetected) U Benzodiazepines Scrn Not Detected (NotDetected) Urine Cocaine Screen Not Detected (NotDetected) U Marijuana (THC) Screen Not Detected (NotDetected) Disposition Clinical Impression: Paranoia Disposition: HOME SELF-CARE Condition: Good Instructions (If sedation given, give patient instructions): Anxiety (ED), Suicide Prevention (ED) Additional Instructions: Follow-up with outpatient mental services as soon as possible. Follow up with her primary care physician for recheck in 1-2 days. Return to the emergency department for any new, worsening, or concerning symptoms. Is patient prescribed a controlled substance at d/c from ED?: No Referrals: Dee Dee Martins MD [Primary Care Provider] - 1-2 days Time of Disposition: 16:09
[2020-06-26 16:05] LABS: Cocaine Screen,Urine Not Detected (NotDetected); Phencyclidine Screen,Urine Not Detected (NotDetected); Urn Cannabinoid Scrn Not Detected (NotDetected)
[2020-06-26 16:06] LABS: Amphetamine Screen,Urine Not Detected (NotDetected); Barbiturate Screen,Urine Not Detected (NotDetected); Benzodiazepines Screen,Urine Not Detected (NotDetected); Methadone Screen, Urine Not Detected (NotDetected); Opiate Screen,Urine Detected (NotDetected); Oxycodone Screen, Urine Not Detected (NotDetected); Tricyclic Antidepressant,Urine Detected (NotDetected)
[2020-06-26] MEDS ORDERED: amLODIPine 5 MG TAB PO STA (16:20)
[2020-06-26 16:52] VITALS: BP 132/91; PULSE 78
== END 2020-06-26 16:52 | disposition home or self-care (01) ==
LOC: EC 14:40
DX: F22 Delusional disorders (principal); I10 Essential (primary) hypertension; G89.29 Other chronic pain; M54.9 Dorsalgia, unspecified; M19.90 Unspecified osteoarthritis, unspecified site; F32.9 Major depressive disorder, single episode, unspecified; F41.9 Anxiety disorder, unspecified; Z79.899 Other long term (current) drug therapy; Z79.82 Long term (current) use of aspirin; Z91.018 Allergy to other foods; Z88.8 Allergy status to other drugs, medicaments and biological substances; Z96.641 Presence of right artificial hip joint; Z87.891 Personal history of nicotine dependence
CPT/HCPCS: 80306; 82075; 99284

== ENCOUNTER → 2020-09-01 | Outpatient (CLI) | payer OTHER ==
--- NOTE | 2020-09-02 12:06 | MR ---
EXAMINATION TYPE: MR knee LT wo con DATE OF EXAM: 09/01/2020 COMPARISON: None HISTORY: Lt knee pain x 1 year TECHNIQUE: Multiplanar, multisequence images of the knee is performed without IV contrast. FINDINGS: MEDIAL MENISCUS: Annular tear posterior horn medial meniscus. Anterior horn and body are unremarkable . LATERAL MENISCUS: Anterior and posterior horns are intact without tear. CRUCIATE LIGAMENTS: The anterior and posterior cruciate ligaments are intact and unremarkable. COLLATERAL LIGAMENTS: The medial collateral ligament and lateral collateral ligament complex are inta ct and unremarkable. EXTENSOR MECHANISM: Visualized quadriceps and patellar tendons are intact. EFFUSION: No significant suprapatellar joint effusion. POPLITEAL CYST: Duncan's cyst measures 1.2 cm. TRICOMPARTMENT SPACES: Intact CARTILAGE: Intact BONE MARROW SIGNAL: No focal abnormal marrow signal is appreciated. OTHER: No additional significant abnormality is appreciated. IMPRESSION: 1. Radial tear posterior horn medial meniscus. 2. small Duncan's cyst.
== END ==
LOC: RADMRIMAIN 10:57
PROVIDERS: ATTEND Orthopaedic Surgery
DX: S83.242A Other tear of medial meniscus, current injury, left knee, initial encounter (principal); M71.22 Synovial cyst of popliteal space [Baker], left knee

== ENCOUNTER → 2020-09-08 | Outpatient (CLI) | payer OTHER ==
[2020-09-08 07:59] LABS: Basophils # (A) 0.1 k/uL (0-0.2); Basophils % (A) 1 %; Eosinophils # (A) 0.3 k/uL (0-0.7); Eosinophils % (A) 5 %; HCT 40.1 % (39.0-53.0); HGB 12.7 gm/dL (13.0-17.5); Hypochromasia Moderate; Lymphocytes # (A) 3.2 k/uL (1.0-4.8); Lymphocytes % (A) 49 %; MCH 27.5 pg (25.0-35.0); MCHC 31.6 g/dL (31.0-37.0); MCV 86.9 fL (80.0-100.0); Mean Platelet Volume 7.9; Monocytes # (A) 0.3 k/uL (0-1.0); Monocytes % (A) 5 %; Neutrophils # (A) 2.5 k/uL (1.3-7.7); Neutrophils % (A) 38 %; Platelet Count 228 k/uL (150-450); Poikilocytosis Slight; RBC 4.62 m/uL (4.30-5.90); RDW 14.6 % (11.5-15.5); WBC 6.4 k/uL (3.8-10.6)
[2020-09-08 08:04] LABS: Prothrombin Time 10.5 sec (9.0-12.0)
[2020-09-08 08:07] LABS: Potassium 3.8 mmol/L (3.5-5.1)
== END | disposition home or self-care (01) ==
LOC: LABPAT 07:15
PROVIDERS: ATTEND Nurse Practitioner Family
DX: Z01.812 Encounter for preprocedural laboratory examination (principal); M17.11 Unilateral primary osteoarthritis, right knee; Z22.322 Carrier or suspected carrier of Methicillin resistant Staphylococcus aureus
CPT/HCPCS: 36415; 80051; 85025; 85610; 93005

== ENCOUNTER → 2020-09-09 | Outpatient (CLI) | payer OTHER | END | disposition home or self-care (01) | LOC: LABPAT 15:44 | PROVIDERS: ATTEND Orthopaedic Surgery | DX: M17.11 Unilateral primary osteoarthritis, right knee (principal); Z22.322 Carrier or suspected carrier of Methicillin resistant Staphylococcus aureus | CPT/HCPCS: 87070 ==

== ENCOUNTER 2020-09-12 11:24 | Observation (INO) | payer OTHER ==
[2020-09-09 15:01] VITALS: BMI 32.1
--- NOTE | 2020-09-11 12:09 | HP ---
HISTORY AND PHYSICAL DATE OF SERVICE: Surgery 09/12/2020 Perez Gleason is a 50-year-old gentleman seen with progressive right knee pain. We discussed options for treatment. He elected to proceed with right total knee arthroplasty. Consent obtained. PAST MEDICAL HISTORY: Chronic low back pain, depression. PAST SURGICAL HISTORY: Total hip arthroplasty, bilateral. MEDICATIONS: Amitriptyline, meclizine, and propranolol. ALLERGIES: CAFFEINE. SOCIAL HISTORY: Denies tobacco use. PHYSICAL EXAMINATION: Evaluation of the right knee: Range of motion is -3/4-100. Mild effusion. Tenderness medial joint line. Crepitus medial patellofemoral compartments with range of motion. Pain with patellofemoral compression. Ligaments stable. Hip rotation without pain. Distal neurovascular exam is intact. RADIOGRAPHS: Right knee radiographs reveal severe osteoarthritic changes. IMPRESSION: 1. Right knee osteoarthritis. 2. Chronic back pain. 3. Depression. PLAN: Right total knee arthroplasty. Surgery 09/12/2020. MMODL / IJN: [id number] /
[~2020-09-12 11:24] MED LIST changes: -ACETAMINOPHEN TAB 500 MG TAB PO ONE; +ACETAMINOPHEN TAB 500 MG TAB PO PRN; -DEXAMETHASONE SOD PHOSPHATE 10 MG/ML 1 ML VIAL IV ONE; +DEXAMETHASONE SOD PHOSPHATE 4 MG/ML 1 ML VIAL IV ONE; +LIDOCAINE 1% (10MG/ML) FOR IV START INTRADERMA PRN; -MELOXICAM 7.5 MG TAB PO ONE; +MELOXICAM 7.5 MG TAB PO PRN; -MIDAZOLAM (PF) 2 MG/2 ML VIAL IV PRN; +ROPIVACAINE/EPI/CLONIDINE/KET 50 ML SYRINGE MISCELLANE PRN; -SCOPOLAMINE 1.5MG/72HR PATCH TRANSDERM ONE; +TRANEXAMIC ACID 1,000 MG in SODIUM CHLORIDE 0.9% 100 ML IVPB PRN; -TRANEXAMIC ACID 1,000 MG in SODIUM CHLORIDE 0.9% 50 ML IVPB ONE; -ceFAZolin IN SWFI 2 GM/20 ML SYRINGE IVP ONE
[2020-09-12] MEDS ORDERED: fentaNYL (PF) 50 MCG/ML 2 ML AMP IVP ONE ×2 (12:39→12:52)
[2020-09-12] MEDS ORDERED: MIDAZOLAM 2 MG/2 ML VIAL IVP ONE (12:39)
[2020-09-12] MEDS: LACTATED RINGERS 1,000 ML IV SCH ×2 (13:05→21:31)
[2020-09-12] MEDS ORDERED: TRANEXAMIC ACID 1,000 MG/10 ML VIAL ONE ×2 (13:08→14:30)
[2020-09-12] MEDS ORDERED: PROPOFOL 10 MG/ML 20 ML VIAL IV ONE ×2 (13:08→14:30)
[2020-09-12] MEDS ORDERED: SODIUM CHLORIDE 0.9% 100 ML BAG ONE ×2 (13:08→14:30)
[2020-09-12] MEDS ORDERED: PHENYLEPHRINE-0.9% NACL SYG 1,000 MCG/10 ML SYRINGE ONE (13:08)
[2020-09-12] MEDS ORDERED: MIDAZOLAM 2 MG/2 ML VIAL ONE ×2 (13:08→14:30)
--- NOTE | 2020-09-12 13:11 | P.ANPRN ---
Procedure Note - Anesthesia - Nerve Block Performed Right Adductor Canal Infusion Time Out Performed: Yes (1239) Date of Procedure: 09/12/20 Procedure Start Time: 12:40 Procedure Stop Time: 12:55 Location of Patient: PreOp Indication: Acute Post-Operative Pain, Analgesia, Requested by Surgeon Specifically requested for management of pain by : Aram Isabel Sedation Type: Sedate with meaningful contact maintained Preparation: Sterile Prep, Sterile Dressing Position: Supine Needle Types: On-Q Needle Gauge: 20 Ultrasound used to visualize needle placement: Yes Ultrasound used to observe medication spread: Yes Injectate: Other (see comment) (0.25% 20 mL) Blood Aspirated: No Resistance on Injection: Normal Image Stored and Saved: Yes Events: Uneventful and Well Tolerated
--- NOTE | 2020-09-12 13:13 | P.ANPRN ---
Procedure Note - Anesthesia - Nerve Block Performed Right Other (see comment) Single Time Out Performed: Yes (1239) Date of Procedure: 09/12/20 Procedure Start Time: 12:40 Procedure Stop Time: 12:55 Location of Patient: PreOp Indication: Acute Post-Operative Pain, Analgesia, Requested by Surgeon Specifically requested for management of pain by DrVicente: Aram Isabel Sedation Type: Sedate with meaningful contact maintained Preparation: Sterile Prep Position: Supine Catheter: None Needle Types: Pajunk Needle Gauge: 20 Ultrasound used to visualize needle placement: Yes Ultrasound used to observe medication spread: Yes Injectate: Other (see comment) (20 mL 0.25% ropivacaine) Blood Aspirated: No Pain Paresthesia on Injection Noted: No Resistance on Injection: Normal Image Stored and Saved: Yes Events: Other (see comment) (IPACK block)
[2020-09-12] MEDS ORDERED: ceFAZolin 1,000 MG in SODIUM CHLORIDE 0.9% 1,000 ML IRRIGATION ONE (13:51)
[2020-09-12] MEDS ORDERED: LACTATED RINGERS 1,000 ML IV ONE (14:00)
[2020-09-12] MEDS ORDERED: NEOSTIGMINE 1 MG/ML 10 ML VIAL ONE (14:30)
[2020-09-12] MEDS ORDERED: SUCCINYLCHOLINE CHLORIDE 100 MG/5 ML SYR IV ONE (14:30)
[2020-09-12] MEDS ORDERED: fentaNYL (PF) 50 MCG/ML 2 ML AMP ONE (14:30)
[2020-09-12] MEDS ORDERED: SODIUM CHLORIDE 0.9% IRRIG 1,000 ML BTL IRRIGATION ONE (14:30)
[2020-09-12] MEDS ORDERED: ROCURONIUM 10 MG/ML (5 ML VIAL) IV ONE (14:30)
[2020-09-12] MEDS ORDERED: HEPARIN SODIUM,PORCINE 10,000 UNIT/ML 1 ML VIAL ONE (14:30)
[2020-09-12] MEDS ORDERED: GLYCOPYRROLATE 0.2 MG/ML 2 ML VIAL ONE (14:30)
[2020-09-12] MEDS ORDERED: LIDOCAINE 1% INJ 10MG/ML (20 ML MDV) ONE (14:30)
[2020-09-12] MEDS ORDERED: ePHEDrine SULFATE/0.9% NACL/PF 50 MG/5 ML SYRINGE IV ONE (14:30)
[2020-09-12] MEDS ORDERED: HYDROmorphone (PF) 1 MG/ML ONE (14:30)
[2020-09-12] MEDS ORDERED: HYDROcodone/APAP 5-325MG 1 EACH TAB PO PRN (15:17)
[2020-09-12] MEDS ORDERED: HYDROmorphone 0.2 MG/1 ML SYRINGE IVP PRN (15:17)
[2020-09-12] MEDS ORDERED: HYDROmorphone 0.5 MG/0.5 ML SYRINGE IVP PRN (15:17)
[2020-09-12] MEDS ORDERED: NALOXONE 0.4 MG/ML 1 ML VIAL IV PRN (15:17)
[2020-09-12] MEDS ORDERED: ONDANSETRON 4 MG/2 ML VIAL IVP PRN (15:17)
--- NOTE | 2020-09-12 15:17 | P.OP ---
Date of Procedure: 09/12/20 Preoperative Diagnosis: Right knee osteoarthritis Postoperative Diagnosis: Right knee osteoarthritis Procedure(s) Performed: Right total knee arthroplasty Implants: 1. Depuy attune size 8 right cruciate retaining cemented femur 2. Depuy attune size 8 fixed bearing cemented tibial baseplate 3. Depuy attune size 8 fixed bearing cruciate retaining 8 mm polyethylene tibial insert 4. Depuy attune 41 mm all polyethylene cemented patella Anesthesia: regional (Adductor canal catheter and I-Pack block), spinal Surgeon: Aram Isabel Profiling Machine Setup Operator #1: Zackary Noel Estimated Blood Loss (ml): 50 Pathology: other (Bone) Condition: stable Disposition: PACU Indications for Procedure: 50-year-old gentleman seen with symptomatic right knee osteoarthritis. After having treatment options discussed, he elected to proceed with total knee arthroplasty. Operative Findings: See description of procedure Description of Procedure: Patient was taken to the operative suite after having an adductor canal catheter placed by the department of anesthesia along with an I-Pack block by the department of anesthesia for postoperative pain management. Patient underwent a spinal anesthetic by the department of anesthesia. Patient was given preoperative IV intake antibiotics and TXA. A well-padded tourniquet was placed about the right lower extremity. The lower extremity was then prepped and draped in the normal sterile orthopedic fashion. The extremity was elevated, a tourniquet was insufflated to 300. A standard anterior incision was made sharply through skin. Dissection was taken down through the subcutaneous soft tissues down to the extensor mechanism. A medial arthrotomy was performed, patella was everted and knee was flexed. There was advanced osteoarthritis not ed. I introduced my distal intramedullary femoral drill. I then introduced the distal femoral cutting jig. Mark ACKERMAN secured the cutting jig with 2 pins. I held retractors in position while Mark ACKERMAN performed the distal femoral resection through the guide area we now removed her distal femoral cutting guide. We now placed our 4-in-1 femoral cutting block and positioned and it was secured with 2 pins by Mark ACKERMAN while I held the block in position. The distal femoral finishing was now completed. A proximal tibial cutting guide was positioned. I held the guide in the appropriate position with both hands well Mark ACKERMAN inserted stabilizing pins into the guide. Proximal tibial cut was made. We now placed a trial femoral component into position, along with an appropriate size tibial tray and insert. We now took the knee through range of motion and had full extension good flexion and good overall soft tissue balance noted. The patella was everted and stabilized with 2 towel clips held by Mark ACKERMAN while I performed a flush with patellar quad tendon utilizing a fresh sawblade. We templated the patella, appropriate drill holes were made. An appropriate trial patella was positioned, knee was taken through full range of motion with the patella tracking very nicely. The trial patella was removed. Drill holes were made through the femoral component. All trial components were removed after marking off the appropriate rotation of the tibia. Retractors were now positioned along the proximal tibia. An appropriate keel punch was made with the appropriate size tibial guide by myself on Mark ACKERMAN assisted by holding retractors. At this point appropriate size implants were chosen and opened. The joint was irrigated copiously with pulse lavage mechanical irrigation. The posterior capsule was infiltrated with local analgesic. The wound was irrigated with pulse lavage mechanical irrigation. We mixed antibiotic methylmethacrylate. We placed the knee into flexion. We placed multiple retractors assisted by Mark ACKERMAN to expose the proximal tibia. Once the methyl methacrylate was ready, the tibial component was cemented into place removing any excess methylmethacrylate form by both myself and Mark ACKERMAN. The femoral component was cemented into place removing the removing any excess methylmethacrylate performed by both myself and Mark ACKERMAN. We then inserted the appropriate size polyethylene tibial insert. We made sure that it was locked into position. We took the knee into full extension, and then back in a flexion making sure we had removed any excess methylmethacrylate. The patellar component was then cemented down and secured with clamp. Excess methylmethacrylate removed. We kept the knee in full extension, patellar clamp in position until methylmethacrylate had hardened. Once it had hardened the patellar clamp was removed. The knee was taken through full range of motion. The patella tracked nicely. There was good soft tissue balancing. The tourniquet was now released. Additional hemostasis was achieved via electrocautery. A second gram of TXA was given. The wound again was irrigated with pulse lavage mechanical irrigation. The superficial soft tissues were infiltrated local analgesic. The extensor mechanism was repaired with Vicryl. We checked the repair with range of motion and it was stable. The subcutaneous soft tissues were repaired with Vicryl in layers. The skin was approximated with pernio/Dermabond. Sterile dressings were applied followed by loose web roll and Lavon bandage. The patient was transferred to a bed, and taken to recovery in stable and satisfactory condition. Mark ACKERMAN assisted with this complex procedure.
[2020-09-12] MEDS ORDERED: ROPIVACAINE 0.2%-NS ON-Q PUMP 2 MG/ML EACH MISCELLANE ONE (15:40)
--- NOTE | 2020-09-12 16:48 | XR ---
EXAMINATION TYPE: XR knee limited RT DATE OF EXAM: 09/12/2020 CLINICAL HISTORY: Right knee pain and arthritis status post total knee replacement. TECHNIQUE: Portable AP and crosstable lateral views of the right knee are obtained immediately posto peratively. COMPARISON: None FINDINGS: Metallic hardware from total right knee arthroplasty is seen and appears satisfactory in a lignment and position. There is evidence of recent surgery with diffuse subcutaneous gas and overlyi ng vertical skin marciano noted. IMPRESSION: METALLIC HARDWARE FROM TOTAL RIGHT KNEE ARTHROPLASTY IS SATISFACTORY IN ALIGNMENT.
[2020-09-12] MEDS: HYDROmorphone 1 MG/ML 1 ML SYRINGE IVP PRN ×2 (18:13→22:00)
[2020-09-12] MEDS ORDERED: ALBUTEROL NEBULIZED 2.5 MG/3 ML INHALATION PRN (19:11)
[2020-09-12] MEDS ORDERED: ACETAMINOPHEN TAB 325 MG TAB PO PRN (19:11)
[2020-09-12] MEDS ORDERED: MAGNESIUM HYDROXIDE 2,400 MG/10 ML CUP PO PRN (19:11)
[2020-09-12] MEDS ORDERED: MECLIZINE 25 MG TAB PO PRN (19:11)
[2020-09-12] MEDS: amLODIPine 5 MG TAB PO SCH (20:07)
[2020-09-12] MEDS: GABAPENTIN 300 MG CAP PO SCH ×2 (20:07→23:05)
[2020-09-12] MEDS: MAGNESIUM OXIDE 400 MG TAB PO SCH (20:07)
[2020-09-12] MEDS: HYDROcodone/APAP 7.5-325MG 1 EACH TAB PO PRN (20:09)
[2020-09-12] MEDS ORDERED: PARoxetine 20 MG TAB PO SCH (21:00)
[2020-09-12] MEDS ORDERED: QUEtiapine 100 MG TAB PO SCH (21:00)
[2020-09-12] MEDS ORDERED: SENNOSIDES-DOCUSATE SODIUM 1 EACH TAB PO SCH (21:00)
--- NOTE | 2020-09-12 21:37 | CONS ---
CONSULTATION DATE OF SERVICE: 09/12/2020. REASON FOR CONSULTATION: Advice regarding history of hypertension, multiple other medical problems requested by Dr. Isabel. HISTORY OF PRESENT ILLNESS: This 50-year-old gentleman with a past medical history of GERD, hypertension, history of DJD, history of renal disease, history of back surgery, being followed by Dr. Martins in the outpatient setting underwent right total knee arthroplasty by Dr. Isabel. The patient tolerated the procedure well. The patient is complaining of some pain. Otherwise, there is no history of fever, rigors. No history of headache, loss of consciousness or seizures. PAST MEDICAL HISTORY: GERD, hypertension, DJD, history of dialysis in 2003, GERD, depression, back surgery, anxiety, bipolar, schizophrenia. MEDICATIONS: Medications prior to admission, home medications are: Hydrocodone, B complex, Seroquel, Inderal, Paxil, omeprazole, Naprosyn, Antivert, magnesium oxide, Neurontin, Norvasc, vitamin D. doses reviewed. ALLERGIES: CAFFEINE. FAMILY HISTORY: No history of heart disease or strokes in family. SOCIAL HISTORY: Previous history of smoking. No history of alcohol. REVIEW OF SYSTEMS: ENT: No diminished vision. No diminished hearing. CARDIOVASCULAR: No angina. RESPIRATORY: No cough or hemoptysis. GI no nausea or diarrhea. : No dysuria. NERVOUS SYSTEM: No numbness or weakness. ALLERGY/IMMUNOLOGY: No asthma or hayfever. MUSCULOSKELETAL As mentioned earlier. HEMATOLOGY/ONCOLOGY: No history of anemia. ENDOCRINE: No history of diabetes or hypothyroidism. CONSTITUTIONAL: As mentioned earlier. DERMATOLOGY: Negative. RHEUMATOLOGY: Negative. PSYCHIATRY: As mentioned earlier. PHYSICAL EXAMINATION: Alert and oriented x3. Pulse is 83. Blood pressure 118/74, respirations 16, temperature normal, pulse ox 98% on room air. HEENT is conjunctivae normal. NECK: No JVD. CARDIOVASCULAR systems: S1, S2. RESPIRATION: Breath sounds diminished in the bases. No rhonchi. No crackles. ABDOMEN: Soft, nontender. No mass palpable. LEGS: Legs status post right knee arthroplasty. NERVOUS SYSTEM: Higher functions as mentioned. Moves all four limbs. No focal motor or sensory deficits. LYMPHATICS: No lymph nodes palpable in the neck, axillae or groin. JOINTS as mentioned earlier. SKIN: No ulcer, rash or bleeding. LABS: Hemoglobin 12.7. Preop labs otherwise coags are normal. Recent chemistry was also within normal limits. ASSESSMENT: 1. Status post right total knee joint arthroplasty. 2. History of gastroesophageal reflux disease. 3. Hypertension. 4. History of degenerative joint disease. 5. History of renal disease and dialysis in 2003. 6. History of anemia. 7. History of obesity. 8. Gastroesophageal reflux disease. 9. Depression. 10.History of schizophrenia. 11.Anxiety/bipolar. 12.History of back surgery. 13.History of degenerative joint disease. 14.History of nicotine dependence. 15.FULL CODE. RECOMMENDATIONS AND DISCUSSION: This 50-year-old gentleman presented after surgery, at this time, I recommend to continue current medications. Resume the home medications including the psychiatric medications, incentive spirometry, pain management, DVT prophylaxis, proton pump inhibitors. Otherwise, we will follow the patient closely. The patient may be asked to follow up with Dr. Martins closely after discharge. Thank you Dr. Isabel, for letting us participate in the care of this patient. Patient has history of renal disease. I would recommend repeat BMP in the morning. MMODL / IJN: [id number] /
[2020-09-12] MEDS: PROPRANOLOL 40 MG TAB PO SCH (22:00)
[2020-09-13] MEDS: HYDROcodone/APAP 7.5-325MG 1 EACH TAB PO PRN ×3 (01:35→13:32)
[2020-09-13] MEDS: LACTATED RINGERS 1,000 ML IV SCH ×3 (03:25→11:12)
[2020-09-13] MEDS: ENOXAPARIN 30 MG/0.3 ML SYRINGE SQ SCH ×2 (03:59→13:33)
[2020-09-13] MEDS: GABAPENTIN 300 MG CAP PO SCH ×2 (06:07→11:52)
--- NOTE | 2020-09-13 06:41 | P.PN ---
Progress Note - Text Progress Note Date: 09/13/20 Patient was seen at bedside at 545 AM. Patient is postop day 1 from right total knee replacement with adductor canal catheter placed for pain . Ropivacaine 0.2% infusion running at 8 ml per hour. VAS score is 7. Patient denies side effects. Lower extremity sensation and motor function is intact. Patient has ambulated. Dressing clean dry and intact over catheter site
[2020-09-13] MEDS: MAGNESIUM OXIDE 400 MG TAB PO SCH (07:52)
[2020-09-13] MEDS: amLODIPine 5 MG TAB PO SCH (07:52)
[2020-09-13 08:03] VITALS: RESP 18
[2020-09-13] MEDS: PROPRANOLOL 40 MG TAB PO SCH (08:04)
[2020-09-13 08:33] LABS: Basophils # (A) 0.04 X 10*3/uL (0.00-0.10); Basophils % (A) 0.3 %; Eosinophils # (A) 0.01 X 10*3/uL (0.04-0.35); Eosinophils % (A) 0.1 %; HCT 37.3 % (39.6-50.0); HGB 11.7 g/dL (13.0-17.0); Lymphocytes # (A) 1.38 X 10*3/uL (0.90-5.00); Lymphocytes % (A) 11.5 %; MCH 27.4 pg (27.0-32.0); MCHC 31.4 g/dL (32.0-37.0); MCV 87.4 fL (80.0-97.0); Mean Platelet Volume 11.9 fL (9.5-12.2); Monocytes # (A) 0.82 X 10*3/uL (0.20-1.00); Monocytes % (A) 6.9 %; Neutrophils # (A) 9.67 X 10*3/uL (1.80-7.70); Neutrophils % (A) 80.9 %; Platelet Count 230 X 10*3/uL (140-440); RBC 4.27 X 10*6/uL (4.40-5.60); RDW 13.3 % (11.5-14.5); WBC 11.96 X 10*3/uL (4.50-10.00)
[2020-09-13] MEDS ORDERED: ASCORBIC ACID 500 MG TAB PO SCH (09:00)
[2020-09-13] MEDS ORDERED: NON FORMULARY DRUG (Vitamin B Complex [Vitamin B Complex] 1 EACH Capsule) PO SCH (09:00)
[2020-09-13] MEDS ORDERED: CHOLECALCIFEROL 25 MCG (1000 IU) TABLET PO SCH (09:00)
[2020-09-13] MEDS ORDERED: PANTOPRAZOLE 40 MG TABLET PO SCH (09:00)
[2020-09-13] MEDS ORDERED: QUEtiapine 25 MG TAB PO SCH (09:00)
[2020-09-13 09:39] LABS: African American GFR (CKD) 90.2 (60.0-200.0); Anion Gap 9.3 mmol/L (4.00-12.00); BUN/Creat Ratio 14.55 Ratio (12.00-20.00); Calcium 9.3 mg/dL (8.7-10.3); Carbon Dioxide 24.7 mmol/L (21.6-31.8); Non-African American GFR(CKD) 77.9 (60.0-200.0); Potassium 4.6 mmol/L (3.5-5.5)
--- NOTE | 2020-09-13 12:44 | P.PN ---
Progress Note - Text Progress Note Date: 09/13/20 Patient seen status post right total knee arthroplasty. He states that he is doing well. He has no new complaints today. Incision stable. Distal neurovascular exam is intact. Homans and Tony are both negative. Impression: Status post right total knee arthroplasty Plan: Discharged home today
--- NOTE | 2020-09-13 12:46 | P.DS ---
Providers Date of admission: 09/13/20 05:33 Expected date of discharge: 09/13/20 Attending physician: Aram Isabel Consults: 09/12/20 15:17 Consult Physician Routine Consulting Provider: Liam Lebron Consult Reason/Comments: Medical management Do you want consulting provider notified?: Yes Primary care physician: Lakshmi Funez [facility] Course: 50-year-old gentleman who underwent right total knee arthroplasty. His postoperative hospital course was unremarkable. Procedures: Right total knee arthroplasty Patient Condition at Discharge: Good Plan - Discharge Summary Discharge Rx Participant: Yes New Discharge Prescriptions: No Action Propranolol [Inderal] 40 mg PO BID #60 tab Omeprazole 20 mg PO DAILY #20 capsule. Meclizine [Antivert] 25 mg PO BID PRN PRN Reason: Vertigo Cholecalciferol [Vitamin D3 (25 Mcg = 1000 Iu)] 1,000 unit PO DAILY Gabapentin [Neurontin] 300 mg PO 5XD Vitamin B Complex 1 cap PO DAILY PARoxetine [Paxil] 20 mg PO HS Naproxen 500 mg PO BID PRN PRN Reason: Pain Aspirin EC [Ecotrin] 325 mg PO BID amLODIPine [Norvasc] 5 mg PO BID Acetaminophen with Codeine [Tylenol w/Codeine #4 Tablet] 1 tab PO TID PRN PRN Reason: Pain Ascorbic Acid [Vitamin C] 100 mg PO DAILY #0 Magnesium Oxide [Mag-Ox] 400 mg PO BID tab Magnesium Hydroxide [Milk of Magnesia Concentrate] 2,400 mg PO DAILY PRN ml PRN Reason: Constipation QUEtiapine [SEROquel] 25 mg PO BID@0900,1600 #60 tab QUEtiapine [SEROquel] 100 mg PO HS #30 tab Albuterol Inhaler [Ventolin Hfa Inhaler] 2 puff INHALATION RT-Q6H PRN #2 puff PRN Reason: Shortness Of Breath Acetaminophen Tab [Tylenol] 650 mg PO Q6H PRN PRN Reason: Pain/Discomfort HYDROcodone/APAP 5-325MG [Randolph 5-325] 1 tab PO Q6HR PRN PRN Reason: Pain Discharge Medication List Propranolol [Inderal] 40 mg PO BID #60 tab 10/26/16 [Rx] Omeprazole 20 mg PO DAILY #20 capsule. 02/26/17 [Rx] Meclizine [Antivert] 25 mg PO BID PRN 05/31/17 [History] Cholecalciferol [Vitamin D3 (25 Mcg = 1000 Iu)] 1,000 unit PO DAILY 11/15/17 [History] Gabapentin [Neurontin] 300 mg PO 5XD 12/23/17 [History] Acetaminophen with Codeine [Tylenol w/Codeine #4 Tablet] 1 tab PO TID PRN 05/16/20 [History] Ascorbic Acid [Vitamin C] 100 mg PO DAILY #0 05/16/20 [History] Aspirin EC [Ecotrin] 325 mg PO BID 05/16/20 [History] Naproxen 500 mg PO BID PRN 05/16/20 [History] PARoxetine [Paxil] 20 mg PO HS 05/16/20 [History] Vitamin B Complex 1 cap PO DAILY 05/16/20 [History] amLODIPine [Norvasc] 5 mg PO BID 05/16/20 [History] Albuterol Inhaler [Ventolin Hfa Inhaler] 2 puff INHALATION RT-Q6H PRN #2 puff 05/19/20 [Rx] Magnesium Hydroxide [Milk of Magnesia Concentrate] 2,400 mg PO DAILY PRN ml 05/19/20 [Rx] Magnesium Oxide [Mag-Ox] 400 mg PO BID tab 05/19/20 [Rx] QUEtiapine [SEROquel] 25 mg PO BID@0900,1600 #60 tab 05/19/20 [Rx] QUEtiapine [SEROquel] 100 mg PO HS #30 tab 05/19/20 [Rx] Acetaminophen Tab [Tylenol] 650 mg PO Q6H PRN 09/09/20 [History] HYDROcodone/APAP 5-325MG [Randolph 5-325] 1 tab PO Q6HR PRN 09/12/20 [History] Follow up Appointment(s)/Referral(s): Dee Dee Martins MD [Primary Care Provider] - 09/20/20 9:40 am [facility], [NON-STAFF] - Zackary Noel PAC [PHYSICIAN MEDICAL DIRECTOR OCCUPATIONAL HEALTH] - 09/28/20 2:30 pm Patient Instructions/Handouts: *Surgery [facility] - On-Q Pain Pump Discharge Instructions, Precautions after Total Joint Replacement Surgery (DC), Joint Replacement Surgery (DC) Discharge Disposition: HOME WITH HOME HEALTH SERVICES
[2020-09-13 14:55] VITALS: BP 114/68; PULSE 71; TEMP 98.6
--- NOTE | 2020-09-13 15:14 | PN ---
PROGRESS NOTE DATE OF SERVICE: 09/13/2020 This 50-year-old gentleman who was admitted after right total knee arthroplasty improving significantly. No chest pain. No palpitations. No fever. PHYSICAL EXAMINATION: On exam, alert and oriented x3. Pulse is 76, blood pressure 116/74, respiration 18, temperature 97.7, pulse ox 96% on room air. HEENT: Conjunctivae normal. NECK: No jugular venous distention. CARDIOVASCULAR: S1, S2 muffled. RESPIRATORY: Breath sounds diminished at the bases. No rhonchi, no crackles. ABDOMEN: Soft, nontender. LEGS: Status post right knee arthroplasty. LABS: WBC 11.96, hemoglobin 11.7. ASSESSMENT: 1. Status post right total knee joint arthroplasty. 2. History of gastroesophageal reflux disease. 3. Hypertension. 4. History of degenerative joint disease. 5. History of renal disease on hemodialysis in 2003. 6. History of anemia. 7. History of obesity. 8. Gastroesophageal reflux disease. 9. Depression. 10.History of schizophrenia. 11.History of anxiety, bipolar. 12.History of back surgery. 13.History of degenerative joint disease. 14.History of nicotine dependence. 15.FULL CODE. RECOMMENDATIONS AND DISCUSSION: I recommend to continue current medications, continue symptomatic treatment. Incentive spirometry. The rest of the recommendations per Orthopedic Surgery. Closely follow with primary physician in outpatient setting. DVT prophylaxis. Further recommendations to follow. MMODL / IJN: [id number] /
== END 2020-09-13 16:18 | disposition home health service (06) ==
LOC: OR 11:24 → 4SSUR 16:31 → OR 09-13 05:13 → 4SSUR 09-13 05:33
PROVIDERS: ADMIT Orthopaedic Surgery; ATTEND Orthopaedic Surgery
DX: M17.11 Unilateral primary osteoarthritis, right knee (principal); G89.29 Other chronic pain; M54.5 Low back pain; Z96.643 Presence of artificial hip joint, bilateral; I10 Essential (primary) hypertension; K21.9 Gastro-esophageal reflux disease without esophagitis; F20.9 Schizophrenia, unspecified; F31.9 Bipolar disorder, unspecified; F41.9 Anxiety disorder, unspecified; Z87.891 Personal history of nicotine dependence; E66.9 Obesity, unspecified; D64.9 Anemia, unspecified; R42 Dizziness and giddiness; K59.00 Constipation, unspecified; R06.02 Shortness of breath; Z87.448 Personal history of other diseases of urinary system; Z91.018 Allergy to other foods; Z79.891 Long term (current) use of opiate analgesic; Z79.1 Long term (current) use of non-steroidal anti-inflammatories (NSAID); Z79.899 Other long term (current) drug therapy
CPT/HCPCS: 97110; 97161; 64448; 76942; 80048; 85025; 88300; 73560; G0378; C1776; C1713; J2250; J1644; J1100; J2710; J0690 ×3; J2405; J2001; J3010; J1650; J1170 ×2; J2370; J0330; J2704; J2795

== ENCOUNTER → 2021-05-24 | Outpatient (CLI) | payer OTHER ==
--- NOTE | 2021-05-27 15:10 | MR ---
EXAMINATION TYPE: MR knee LT wo con DATE OF EXAM: 05/24/2021 COMPARISON: Previous MRI 09/01/2020 and outside radiographs 05/02/2021 HISTORY: 51-year-old male Left knee pain TECHNIQUE: Multiplanar, multisequence imaging of the left knee knee is performed without IV contrast. FINDINGS: The ACL, PCL, MCL, and LCL complex are intact. There is a small multilocular ganglion cyst measuring 1.6 cm along the posterior margin of the poplit eus muscle redemonstrated. Redemonstrated oblique tear posterior horn and body of the medial meniscus. The junction of the poste rior horn and body diminutive canal. This could reflect progressive tear or interval partial meniscec carol. Focal moderate irregular with loss along the mid central aspect of the medial femoral condyle, unchan ged from prior exam. There is some degenerative signal within the lateral meniscus without discrete tear. Overall lateral compartment articular cartilage volume is maintained. Mild superficial cartilage irregularity along the patellar articular cartilage with overall preserved cartilage volume. Extensor mechanism is intact. Nonspecific mild anterior soft tissue swelling. Physiologic knee joint fluid. No sizable Duncan's cyst. There is some fluid signal seen along the myotendinous junction at the origin of the lateral head gas trocnemius now measuring 1.6 x 1.2 cm. Patchy red marrow is present and can be seen in setting of anemia, obesity, smoking, chronic disease. No suspicious bone marrow replacement. Normal popliteal artery anatomy and muscle bulk. IMPRESSION: 1. Redemonstrated oblique tear posterior horn and body of the medial meniscus. At the junction of the posterior horn and body, the meniscus is now diminutive. This could reflect progressive tear versus interval partial meniscectomy. Clinically correlate. 2. Similar moderate focal irregular cartilage loss along the mid central aspect of the medial femoral condyle. Similar mild superficial cartilage irregularity involving the patellar cartilage. 3. A 1.6 x 1.2 cm tear along the myotendinous junction near the origin of the lateral head gastrocnem ius, new from 09/01/2020.
== END | disposition home or self-care (01) ==
LOC: RADMRIMAIN 11:10
PROVIDERS: ATTEND Orthopaedic Surgery
DX: M25.562 Pain in left knee (principal)

== ENCOUNTER → 2021-09-08 | Outpatient (CLI) | payer OTHER ==
--- NOTE | 2021-09-08 08:20 | CT ---
EXAMINATION TYPE: CT brain wo con DATE OF EXAM: 09/08/2021 COMPARISON: None HISTORY: left sides weakness, headaches and dizziness CT DLP: 1108.[address] of the brain was performed. The ventricles, basal cisterns and sulci overlying the cerebral convexities demonstrate mild enlargem ent. There is no evidence for intracranial hemorrhage or sulcal effacement. There is decreased attenuation about the periventricular white matter and deep white matter of both c erebral hemispheres, compatible with chronic small vessel ischemia. Differential diagnosis does inclu de demyelination. No mass effects are seen.No midline shift. Osseous calvarium is intact. If symptoms persist consider MRI. IMPRESSION: 1. Age related atrophic and chronic small vessel ischemic change without acute intracranial process s een at this time.
== END | disposition home or self-care (01) ==
LOC: RADCTMAIN 07:18
PROVIDERS: ATTEND Internal Medicine
DX: I67.82 Cerebral ischemia (principal); G31.89 Other specified degenerative diseases of nervous system
CPT/HCPCS: 70450

== ENCOUNTER 2021-11-22 06:48 | Emergency (ER) | payer OTHER ==
--- NOTE | 2021-11-22 08:22 | ED ---
Psych HPI - General Source: patient, RN notes reviewed Mode of arrival: wheelchair Limitations: no limitations <Perez Reese - Last Filed: 11/22/21 08:21> <Yaw Wilson - Last Filed: 11/22/21 18:34> - General Chief Complaint: Psychiatric Symptoms Stated Complaint: Mental health, off medication, leg swelling Time Seen by Provider: 11/22/21 06:51 - History of Present Illness Initial Comments: This a 51-year-old male presents emergency Department with chief complaint depression. Patient states that he is off his medications states his been having worsening mental health issues. Patient is having intermittent thoughts of harming himself. Patient denies any significant drug or alcohol abuse. Patient states she has hip and knee problems after having surgery. He states is never healed up the way he bites it. Patient states his orthopedic surgeon told him to go to therapy but he did not want to complete this. Patient denies any acute changes. Denies fevers or chills patient states he has no other complaints. (Perez Reese) - Related Data Home Medications Medication Instructions Recorded Confirmed Meclizine [Antivert] 25 mg PO TID PRN 05/31/17 11/22/21 Cholecalciferol [Vitamin D3 (25 2,000 unit PO DAILY 11/15/17 11/22/21 Mcg = 1000 Iu)] Naproxen 500 mg PO BID PRN 05/16/20 11/22/21 Vitamin B Complex 1 cap PO DAILY 05/16/20 11/22/21 Albuterol Inhaler [Ventolin Hfa 2 puff INHALATION RT-QID PRN 11/22/21 11/22/21 Inhaler] Aspirin [Adult Low Dose Aspirin EC] 81 mg PO DAILY 11/22/21 11/22/21 Ibuprofen [Motrin] 800 mg PO TID-W/MEALS 11/22/21 11/22/21 Meloxicam [Mobic] 15 mg PO DAILY 11/22/21 11/22/21 Montelukast [Singulair] 10 mg PO DAILY 11/22/21 11/22/21 hydrOXYzine HCL [Atarax] 20 mg PO Q8H PRN 11/22/21 11/22/21 Previous Rx's Medication Instructions Recorded Omeprazole 20 mg PO DAILY #20 capsule. 02/26/17 Gabapentin [Neurontin] 300 mg PO TID #42 cap 11/22/21 HYDROcodone/APAP 7.5-325MG [[place] 1 tab PO BID PRN 3 Days #6 tab 11/22/21 7.5-325] PARoxetine HCL [Paxil] 30 mg PO DAILY #14 tab 11/22/21 Propranolol [Inderal] 40 mg PO TID #42 tab 11/22/21 QUEtiapine [SEROquel] 100 mg PO HS #14 tab 11/22/21 Topiramate [Topamax] 25 mg PO BID #28 tab 11/22/21 busPIRone HCl [Buspar] 5 mg PO TID PRN #14 tab 11/22/21 Allergies Allergy/AdvReac Type Severity Reaction Status Date / Time caffeine AdvReac SHAKING Verified 11/22/21 09:01 Review of Systems ROS Other: All systems not noted in ROS Statement are negative. <Perez Reese - Last Filed: 11/22/21 08:21> ROS Other: All systems not noted in ROS Statement are negative. <Yaw Wilson - Last Filed: 11/22/21 18:34> ROS Statement: Those systems with pertinent positive or pertinent negative responses have been documented in the HPI. 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 Anemia, obesity, GERD, depression, schizophrenia, CHRONIC BACK PAIN History of Any Multi-Drug Resistant Organisms: None Reported Past Surgical History: Back Surgery, Joint Replacement, Orthopedic Surgery Additional Past Surgical History / Comment(s): cyst removed from throat; pain procedure in [place], EPIDURAL INJECTIONS, right hip replacement Past Anesthesia/Blood Transfusion Reactions: No Reported Reaction Past Psychological History: Anxiety, Bipolar, Schizophrenia Smoking Status: Former smoker Past Alcohol Use History: None Reported Past Drug Use History: None Reported - Past Family History Mother Family Medical History: No Reported History <Perez Reese - Last Filed: 11/22/21 08:21> General Exam Limitations: no limitations General appearance: alert, in no apparent distress Head exam: Present: atraumatic, normocephalic, normal inspection Eye exam: Present: normal appearance, PERRL, EOMI. Absent: scleral icterus, conjunctival injection, periorbital swelling ENT exam: Present: normal exam, normal oropharynx, mucous membranes moist Neck exam: Present: normal inspection, full ROM. Absent: tenderness, meningismus, lymphadenopathy Respiratory exam: Present: normal lung sounds bilaterally. Absent: respiratory distress, wheezes, rales, rhonchi, stridor Cardiovascular Exam: Present: regular rate, normal rhythm, normal heart sounds. Absent: systolic murmur, diastolic murmur, rubs, gallop, clicks Extremities exam: Present: other (For range of motion neurovascular intact lower extremities) Neurological exam: Present: alert, oriented X3, CN II-XII intact, reflexes normal. Absent: motor sensory deficit Skin exam: Present: warm, dry, intact, normal color. Absent: rash <Perez Reese - Last Filed: 11/22/21 08:21> Course Vital Signs 11/22/21 11/22/21 11/22/21 06:49 15:25 17:58 Temperature 98.1 F Pulse Rate 62 65 74 Respiratory 18 16 16 Rate Blood Pressure 131/75 157/96 141/78 O2 Sat by Pulse 100 100 98 Oximetry Medical Decision Making <Yaw Wilson - Last Filed: 11/22/21 18:34> - Medical Decision Making 51-year-old male with presented for psychiatric evaluation, suicidal thoughts. He was evaluated after a prolonged stay in the emergency department and was no longer feeling suicidal. He had signed a safety plan. I did reevaluate the patient. He was calm and cooperative. He did request refill of his medications as he is currently without a primary care physician. I provided refill of his critical medications. Return parameters discussed. (Yaw Wilson) - Lab Data Lab Results 11/22/21 Range/Units 08:06 Urine Opiates Screen Detected H (NotDetected) Ur Oxycodone Screen Not Detected (NotDetected) Urine Methadone Screen Not Detected (NotDetected) Ur Propoxyphene Screen Not Detected (NotDetected) Ur Barbiturates Screen Not Detected (NotDetected) U Tricyclic Antidepress Not Detected (NotDetected) Ur Phencyclidine Scrn Not Detected (NotDetected) Ur Amphetamines Screen Not Detected (NotDetected) U Methamphetamines Scrn Not Detected (NotDetected) U Benzodiazepines Scrn Not Detected (NotDetected) Urine Cocaine Screen Not Detected (NotDetected) U Marijuana (THC) Screen Not Detected (NotDetected) Disposition <Mary AnnPerez M - Last Filed: 11/22/21 08:21> Is patient prescribed a controlled substance at d/c from ED?: No Time of Disposition: 18:30 <Yaw Wilson Leo - Last Filed: 11/22/21 18:34> Clinical Impression: Depression Disposition: HOME SELF-CARE Condition: Fair Instructions (If sedation given, give patient instructions): Depression (ED) Additional Instructions: Please follow up with community mental health. Prescriptions: busPIRone HCl [Buspar] 5 mg PO TID PRN #14 tab PRN Reason: Anxiety Propranolol [Inderal] 40 mg PO TID #42 tab Gabapentin [Neurontin] 300 mg PO TID #42 cap HYDROcodone/APAP 7.5-325MG [[place] 7.5-325] 1 tab PO BID PRN 3 Days #6 tab PRN Reason: Pain PARoxetine HCL [Paxil] 30 mg PO DAILY #14 tab QUEtiapine [SEROquel] 100 mg PO HS #14 tab Topiramate [Topamax] 25 mg PO BID #28 tab Referrals: Dee Dee Martins MD [Primary Care Provider] - 1-2 days Arvin Greene MD [STAFF PHYSICIAN] - 1-2 days Rolo Singh III, MD [STAFF PHYSICIAN] - 1-2 days
[2021-11-22 08:52] LABS: Amphetamine Screen,Urine Not Detected (NotDetected); Barbiturate Screen,Urine Not Detected (NotDetected); Benzodiazepines Screen,Urine Not Detected (NotDetected); Cocaine Screen,Urine Not Detected (NotDetected); Methadone Screen, Urine Not Detected (NotDetected); Opiate Screen,Urine Detected (NotDetected); Oxycodone Screen, Urine Not Detected (NotDetected); Phencyclidine Screen,Urine Not Detected (NotDetected); Tricyclic Antidepressant,Urine Not Detected (NotDetected); Urn Cannabinoid Scrn Not Detected (NotDetected)
[2021-11-22] MEDS ORDERED: hydrOXYzine HCL 10 MG TAB PO PRN (15:30)
[2021-11-22] MEDS ORDERED: busPIRone HCl 5 MG TAB PO PRN (15:30)
[2021-11-22] MEDS ORDERED: ALBUTEROL NEBULIZED 2.5 MG/3 ML INHALATION PRN (15:30)
[2021-11-22] MEDS ORDERED: MECLIZINE 25 MG TAB PO PRN (15:30)
[2021-11-22] MEDS ORDERED: HYDROcodone/APAP 7.5-325MG 1 EACH TAB PO PRN (15:30)
[2021-11-22 15:32] VITALS: RESP 16
[2021-11-22] MEDS ORDERED: GABAPENTIN 300 MG CAP PO SCH (16:00)
[2021-11-22] MEDS ORDERED: PROPRANOLOL 40 MG TAB PO SCH (16:00)
[2021-11-22] MEDS ORDERED: IBUPROFEN 800 MG TAB PO PRN (17:30)
[2021-11-22 18:45] VITALS: BP 140/83; PULSE 60; TEMP 98
[2021-11-22] MEDS ORDERED: QUEtiapine 100 MG TAB PO SCH (21:00)
[2021-11-22] MEDS ORDERED: TOPIRAMATE 25 MG TAB PO SCH (21:00)
[2021-11-23] MEDS ORDERED: PANTOPRAZOLE 40 MG TABLET PO SCH (07:30)
[2021-11-23] MEDS ORDERED: NON FORMULARY DRUG (Vitamin B Complex [Vitamin B Complex] 1 EACH Capsule) PO SCH (09:00)
[2021-11-23] MEDS ORDERED: MELOXICAM 7.5 MG TAB PO SCH (09:00)
[2021-11-23] MEDS ORDERED: MONTELUKAST 10 MG TAB PO SCH (09:00)
[2021-11-23] MEDS ORDERED: ASPIRIN 81 MG PO SCH (09:00)
[2021-11-23] MEDS ORDERED: PARoxetine 10 MG TAB PO SCH (09:00)
[2021-11-23] MEDS ORDERED: CHOLECALCIFEROL 25 MCG (1000 IU) TABLET PO SCH (09:00)
== END 2021-11-22 18:58 | disposition home or self-care (01) ==
LOC: EC 06:48
DX: F32.A Depression, unspecified (principal); I10 Essential (primary) hypertension; F20.9 Schizophrenia, unspecified; K21.9 Gastro-esophageal reflux disease without esophagitis; M19.90 Unspecified osteoarthritis, unspecified site; Z79.82 Long term (current) use of aspirin; Z79.899 Other long term (current) drug therapy; Z87.891 Personal history of nicotine dependence
CPT/HCPCS: 80306; 82075; 99284

== ENCOUNTER → 2022-01-30 | Outpatient (CLI) | payer OTHER | END | disposition home or self-care (01) | LOC: LABWHC1 07:12 | PROVIDERS: ATTEND Orthopaedic Surgery | DX: M17.12 Unilateral primary osteoarthritis, left knee (principal); M11.262 Other chondrocalcinosis, left knee; Z96.651 Presence of right artificial knee joint | CPT/HCPCS: 36415; 85379; 85652; 86140 ==

== ENCOUNTER 2022-03-29 15:38 | Emergency (ER) | payer OTHER ==
[2022-03-29 15:53] VITALS: TEMP 98.6
[2022-03-29] MEDS ORDERED: SODIUM CHLORIDE 0.9% 1,000 ML IV STA ×2 (16:13)
[2022-03-29] MEDS ORDERED: KETOROLAC 15 MG/ML 1 ML VIAL IVP STA (16:13)
--- NOTE | 2022-03-29 16:16 | ED ---
General Adult HPI - General Chief complaint: Headache Stated complaint: Hypertension Time Seen by Provider: 03/29/22 15:47 Source: patient, EMS, RN notes reviewed Mode of arrival: EMS Limitations: no limitations - History of Present Illness Initial comments: 52-year-old male with a history of hypertension who states he did not take his medication yesterday he complained of a headache 5/10 severity generalized he did take his medications this morning the patient blood pressure was 189/88 and 118 as the 13th attempts patient at the emergency department did normalize to 132 systolic. He still has a headache 5/10 severity achy in nature - Related Data Home Medications Medication Instructions Recorded Confirmed Meclizine [Antivert] 25 mg PO BID PRN 05/31/17 03/29/22 Naproxen 500 mg PO BID PRN 05/16/20 03/29/22 Albuterol Inhaler [Ventolin Hfa 2 puff INHALATION RT-QID PRN 11/22/21 03/29/22 Inhaler] Aspirin [Adult Low Dose Aspirin EC] 81 mg PO DAILY 11/22/21 03/29/22 Ibuprofen [Motrin] 800 mg PO TID PRN 11/22/21 03/29/22 ARIPiprazole [Abilify Maintena] 400 mg IM Q28D 03/29/22 03/29/22 HYDROcodone/APAP 7.5-325MG [[place] 1 tab PO TID PRN 03/29/22 03/29/22 7.5-325] Two Strike Carbonate 600 mg PO HS 03/29/22 03/29/22 Melatonin 5 mg PO HS 03/29/22 03/29/22 Ondansetron [Zofran] 4 mg PO DAILY PRN 03/29/22 03/29/22 QUEtiapine FUMARATE [SEROquel] 300 mg PO HS PRN 03/29/22 03/29/22 amLODIPine [Norvasc] 10 mg PO DAILY 03/29/22 03/29/22 busPIRone HCL 15 mg PO TID PRN 03/29/22 03/29/22 Previous Rx's Medication Instructions Recorded Gabapentin [Neurontin] 300 mg PO TID #42 cap 11/22/21 Propranolol [Inderal] 40 mg PO TID #42 tab 11/22/21 Allergies Allergy/AdvReac Type Severity Reaction Status Date / Time caffeine AdvReac Shaking Verified 03/29/22 17:47 Review of Systems ROS Statement: Those systems with pertinent positive or pertinent negative responses have been documented in the HPI. ROS Other: All systems not noted in ROS Statement are negative. 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 Anemia, obesity, GERD, depression, schizophrenia, CHRONIC BACK PAIN History of Any Multi-Drug Resistant Organisms: None Reported Past Surgical History: Back Surgery, Joint Replacement, Orthopedic Surgery Additional Past Surgical History / Comment(s): cyst removed from throat; pain procedure in [place], EPIDURAL INJECTIONS, right hip replacement Past Anesthesia/Blood Transfusion Reactions: No Reported Reaction Past Psychological History: Anxiety, Bipolar, Schizophrenia Smoking Status: Former smoker Past Alcohol Use History: None Reported Past Drug Use History: None Reported - Past Family History Mother Family Medical History: No Reported History General Exam - General Exam Comments Initial Comments: This is a well developed well-nourished awake alert oriented 4 male Limitations: no limitations General appearance: alert, in no apparent distress Head exam: Present: atraumatic, normocephalic, normal inspection Eye exam: Present: normal appearance, PERRL, EOMI. Absent: scleral icterus, conjunctival injection, periorbital swelling ENT exam: Present: normal exam, mucous membranes moist Neck exam: Present: normal inspection, full ROM, other (Surgery or bruits). Absent: tenderness, meningismus, lymphadenopathy Respiratory exam: Present: normal lung sounds bilaterally. Absent: respiratory distress, wheezes, rales, rhonchi, stridor Cardiovascular Exam: Present: regular rate, normal rhythm, normal heart sounds. Absent: systolic murmur, diastolic murmur, rubs, gallop, clicks GI/Abdominal exam: Present: soft, normal bowel sounds. Absent: distended, tenderness, guarding, rebound, rigid, bruit, pulsatile mass Extremities exam: Present: normal inspection, full ROM, normal capillary refill. Absent: tenderness, pedal edema, joint swelling, calf tenderness Back exam: Present: normal inspection Neurological exam: Present: alert, oriented X3, CN II-XII intact Psychiatric exam: Present: normal affect, normal mood Skin exam: Present: warm, dry, intact, normal color. Absent: rash Course Vital Signs 03/29/22 03/29/22 03/29/22 15:49 15:50 16:00 Temperature 98.6 F Pulse Rate 72 70 70 Respiratory 20 18 20 Rate Blood Pressure 132/88 138/97 132/88 O2 Sat by Pulse 100 98 97 Oximetry 03/29/22 03/29/22 03/29/22 16:10 16:20 16:30 Temperature Pulse Rate 70 70 72 Respiratory 20 20 18 Rate Blood Pressure 138/88 138/88 138/88 O2 Sat by Pulse 97 98 Oximetry 03/29/22 03/29/22 03/29/22 16:40 16:50 17:00 Temperature Pulse Rate 68 73 Respiratory 23 14 16 Rate Blood Pressure 130/88 130/88 130/88 O2 Sat by Pulse 96 94 L 94 L Oximetry 03/29/22 03/29/22 03/29/22 17:10 17:20 17:30 Temperature Pulse Rate 64 80 Respiratory 23 12 Rate Blood Pressure 122/84 122/84 122/84 O2 Sat by Pulse 96 96 95 Oximetry - Reevaluation(s) Reevaluation #1: 03/29/22 17:38 Patient's headache has improved his blood pressure is normalized. CTs pending at this time EKG Findings - EKG Results: EKG: interpreted by ANA OCHOA, sinus rhythm, normal axis, normal QRS, normal ST/T, no acute changes (Normal sinus rhythm of 68 appear of 01 87 QRS duration 107 QT since QTC 422/[address]-T wave changes) Medical Decision Making - Medical Decision Making Patient's symptoms have resolved. There is normalized he will be discharged - Lab Data Result diagrams: 03/29/22 16:25 03/29/22 16:25 Lab Results 03/29/22 03/29/22 03/29/22 Range/Units 16:25 16:25 16:25 WBC 5.8 (3.8-10.6) k/uL RBC 5.13 (4.30-5.90) m/uL Hgb 14.0 (13.0-17.5) gm/dL Hct 45.3 (39.0-53.0) % MCV 88.4 (80.0-100.0) fL MCH 27.2 (25.0-35.0) pg MCHC 30.8 L (31.0-37.0) g/dL RDW 14.7 (11.5-15.5) % Plt Count 231 (150-450) k/uL MPV 7.6 Neutrophils % 59 % Lymphocytes % 29 % Monocytes % 5 % Eosinophils % 4 % Basophils % 1 % Neutrophils # 3.4 (1.3-7.7) k/uL Lymphocytes # 1.7 (1.0-4.8) k/uL Monocytes # 0.3 (0-1.0) k/uL Eosinophils # 0.2 (0-0.7) k/uL Basophils # 0.1 (0-0.2) k/uL Hypochromasia Moderate Poikilocytosis Moderate Sodium 136 L (137-145) mmol/L Potassium 4.4 (3.5-5.1) mmol/L Chloride 100 (98-107) mmol/L Carbon Dioxide 24 (22-30) mmol/L Anion Gap 12 mmol/L BUN 11 (9-20) mg/dL Creatinine 0.76 (0.66-1.25) mg/dL Est GFR (CKD-EPI)AfAm >90 (>60 ml/min/1.73 sqM) Est GFR (CKD-EPI)NonAf >90 (>60 ml/min/1.73 sqM) Glucose 126 H (74-99) mg/dL Calcium 9.6 (8.4-10.2) mg/dL Magnesium 1.7 (1.6-2.3) mg/dL Total Bilirubin 1.3 (0.2-1.3) mg/dL AST 30 (17-59) U/L ALT 45 (4-49) U/L Alkaline Phosphatase 64 (38-126) U/L Creatine Kinase 110 (55-170) U/L Troponin I 0.018 (0.000-0.034) ng/mL Total Protein 7.2 (6.3-8.2) g/dL Albumin 4.9 (3.5-5.0) g/dL - Radiology Data Radiology results: report reviewed (Imaging reviewed as well as report no acute findings), image reviewed Disposition Clinical Impression: Hypertensive urgency, Cephalgia Disposition: HOME SELF-CARE Condition: Good Instructions (If sedation given, give patient instructions): Acute Headache (ED), Hypertension (ED) Is patient prescribed a controlled substance at d/c from ED?: No Referrals: Cb Hereida MD [Primary Care Provider] - 1-2 days Decision Date: 03/29/22 Decision Time: 18:32
[2022-03-29 16:33] LABS: Basophils # (A) 0.1 k/uL (0-0.2); Basophils % (A) 1 %; Eosinophils # (A) 0.2 k/uL (0-0.7); Eosinophils % (A) 4 %; HCT 45.3 % (39.0-53.0); Hypochromasia Moderate; Lymphocytes # (A) 1.7 k/uL (1.0-4.8); Lymphocytes % (A) 29 %; MCH 27.2 pg (25.0-35.0); MCHC 30.8 g/dL (31.0-37.0); MCV 88.4 fL (80.0-100.0); Mean Platelet Volume 7.6; Monocytes # (A) 0.3 k/uL (0-1.0); Monocytes % (A) 5 %; Neutrophils # (A) 3.4 k/uL (1.3-7.7); Neutrophils % (A) 59 %; Platelet Count 231 k/uL (150-450); Poikilocytosis Moderate; RBC 5.13 m/uL (4.30-5.90); RDW 14.7 % (11.5-15.5); WBC 5.8 k/uL (3.8-10.6)
[2022-03-29 16:44] LABS: ALT 45 U/L (4-49); AST 30 U/L (17-59); African American GFR (CKD) >90 (>60 ml/min/1.73 sqM); Albumin 4.9 g/dL (3.5-5.0); Alkaline Phosphatase 64 U/L (38-126); Anion Gap 12 mmol/L; Blood Urea Nitrogen 11 mg/dL (9-20); Calcium 9.6 mg/dL (8.4-10.2); Carbon Dioxide 24 mmol/L (22-30); Chloride 100 mmol/L (98-107); Creatine Kinase 110 U/L (55-170); Glucose 126 mg/dL (74-99); Magnesium 1.7 mg/dL (1.6-2.3); Non-African American GFR(CKD) >90 (>60 ml/min/1.73 sqM); Potassium 4.4 mmol/L (3.5-5.1); Sodium 136 mmol/L (137-145); Total Bilirubin 1.3 mg/dL (0.2-1.3); Total Protein 7.2 g/dL (6.3-8.2)
[2022-03-29 17:33] VITALS: PULSE 80
--- NOTE | 2022-03-29 18:15 | CT ---
EXAMINATION TYPE: CT brain wo con CT DLP: 1200.4 mGycm, Automated exposure control for dose reduction was used. DATE OF EXAM: 03/29/2022 5:54 PM COMPARISON: Prior CT Brain from 09/08/2021. CLINICAL INDICATION:Male, 52 years old with history of Headache, headache, htn TECHNIQUE: Brain: Multiple axial CT images of the brain were obtained without IV contrast. Coronal and sagittal reformats reviewed. FINDINGS: Brain: Extra-axial spaces: No abnormal extra-axial fluid collections. Ventricular system: Within normal limits Cerebral parenchyma: No acute intraparenchymal hemorrhage or mass effect. The mathis-white junction is well differentiated. Decreased attenuation about the periventricular white matter and deep white mat ter both cerebral hemispheres is unchanged. Atherosclerotic small vessel ischemia. Differential diagn osis does include demyelination. Cerebellum: Unremarkable. Mass effect: No evidence of midline shift. Intracranial vasculature: unremarkable Soft tissues: Normal. Calvarium/osseous structures: No depressed skull fracture. Paranasal sinuses and mastoid air cells: Clear Visualized orbits: Orbital contents are intact. IMPRESSION: 1. No acute intracranial process. No significant change from prior examination. 2. Nonspecific white matter changes, likely secondary to chronic small vessel ischemic disease.
[2022-03-29 18:48] VITALS: BP 117/63; RESP 18
== END 2022-03-29 19:00 | disposition home or self-care (01) ==
LOC: EC 15:38
DX: I16.0 Hypertensive urgency (principal); R51.9 Headache, unspecified; K21.9 Gastro-esophageal reflux disease without esophagitis; I12.9 Hypertensive chronic kidney disease with stage 1 through stage 4 chronic kidney disease, or unspecified chronic kidney disease; N18.9 Chronic kidney disease, unspecified; M19.90 Unspecified osteoarthritis, unspecified site; F31.9 Bipolar disorder, unspecified; F41.9 Anxiety disorder, unspecified; Z87.891 Personal history of nicotine dependence; Z91.018 Allergy to other foods; Z79.51 Long term (current) use of inhaled steroids; Z79.82 Long term (current) use of aspirin; Z79.899 Other long term (current) drug therapy
CPT/HCPCS: 36415; 93005; 80053; 82550; 83735; 84484; 85025; 70450; 99284; 96374; 96361 ×2; J1885

== ENCOUNTER → 2023-01-11 | Outpatient (CLI) | payer OTHER ==
[2023-01-11 12:05] LABS: Blood Urea Nitrogen 12.7 mg/dL (9.0-27.0)
== END | disposition home or self-care (01) ==
LOC: LABWHC1 07:21
PROVIDERS: ATTEND Psychiatry & Neurology Psychiatry
DX: F20.9 Schizophrenia, unspecified (principal)
CPT/HCPCS: 36415; 80178; 82565; 84520

== ENCOUNTER → 2023-01-22 | Outpatient (CLI) | payer OTHER ==
--- NOTE | 2023-01-22 17:00 | P.CNPUL ---
History of Present Illness Consult date: 01/22/23 Reason for consult: obstructive sleep apnea, other (Insomnia) History of present illness: This is a 52-year-old -[place] male patient was referred to me for difficulties in sleep initiation and maintenance. The patient has been having t his problem for the past 8 years at least. The patient refers back to the brain concussion that he sustained about 7 years ago. He also has other issues including. Anxiety which prevents him from inducing in maintaining sleep. He has history of depression. He tries to go to bed at around 11:30 PM and sometimes takes a more than hour to fall asleep and he wakes up frequently at least 3 times in the middle of the night and he estimates the number of hours of sleep to be around 3-4 hours. He takes a 2 hour nap between 10 AM and noontime. The nap helps however it is not completely refreshing. Apparently, the patient gets out of bed, he walks around the house. Sometimes his consciousness and other times he is not to the such, there is a possibility the patient is doing some sleep walking. Among the factors that prevents him from going sleep is increased nervousness. The patient over things his life and things that has done over the years bothered him quite a bit and prevents him from going into sleep. He is also living and the collecting traumatic events in life and was on different subjects and one of the main concern is that one of his sons contracted HIV and this has been a great source of discomfort for this patient. He also reports snoring. He grinds his teeth. He wakes up from increase restlessness. He does not fall asleep while driving. His current [place] score is at 3. No sleep emesis. No hallucinations. No cataplexy. He has chronic pain mainly arthritis and the patient is ordered undergone bilateral hip replacement and right knee replacement. His taken [place] 7.5 for pain control in addition to gabapentin and Naprosyn on an as-needed basis. He is also taking trazodone for depression and anxiety and sleep. His taken 2 tablets of trazodone at bedtime and 1 tablet in the morning and I am assuming this is 50 mg tablets. No recent weight gain. He is an ex-alcoholic and used to drink a fifth of vodka every night and he used to smoke excessively. Currently, is not smoking or drinking and has no active substance abuse. Review of Systems Constitutional: Reports daytime sleepiness, Reports fatigue Eyes: denies as per HPI, denies blurred vision, denies bulging eye, denies decreased vision, denies diplopia, denies discharge, denies dry eye, denies irritation, denies itching, denies pain, denies photophobia, denies loss of peripheral vision, denies loss of vision, denies tunnel vision/blind spots Ears: deny: decreased hearing, ear discharge, earache, tinnitus Ears, nose, mouth and throat: Reports as per HPI Breasts: absent: as per HPI, gynecomastia Cardiovascular: Reports as per HPI Respiratory: Reports as per HPI Gastrointestinal: Reports as per HPI Genitourinary: Reports as per HPI Musculoskeletal: Reports hot joints, Reports shooting leg pain Musculoskeletal: absent: ankle pain Integumentary: Reports as per HPI Neurological: Reports as per HPI Psychiatric: Reports anxiety, Reports depression, Reports hypersomnia, Reports insomnia Endocrine: Reports as per HPI, Reports fatigue Hematologic/Lymphatic: Reports as per HPI Allergic/Immunologic: Reports as per HPI Past Medical History Past Medical History: GERD/Reflux, Hypertension, Musculoskeletal Disorder, Osteoarthritis (OA) (Primary Dr. Shepherd), Renal Disease Additional Past Medical History / Comment(s): Hx of being on dialysis IN 2003. Anemia, obesity, GERD, depression, schizophrenia, CHRONIC BACK PAIN History of Any Multi-Drug Resistant Organisms: None Reported Past Surgical History: Back Surgery, Joint Replacement, Orthopedic Surgery Additional Past Surgical History / Comment(s): cyst removed from throat; pain procedure in [place], EPIDURAL INJECTIONS, right hip replacement Past Anesthesia/Blood Transfusion Reactions: No Reported Reaction Past Psychological History: Anxiety, Bipolar, Schizophrenia Smoking Status: Former smoker Past Alcohol Use History: None Reported Past Drug Use History: None Reported - Past Family History Mother Family Medical History: No Reported History Medications and Allergies Home Medications Medication Instructions Recorded Confirmed Type Meclizine [Antivert] 25 mg PO BID PRN 05/31/17 03/29/22 History Naproxen 500 mg PO BID PRN 05/16/20 03/29/22 History Albuterol Inhaler [Ventolin Hfa 2 puff INHALATION RT-QID PRN 11/22/21 03/29/22 History Inhaler] Aspirin [Adult Low Dose Aspirin EC] 81 mg PO DAILY 11/22/21 03/29/22 History Gabapentin [Neurontin] 300 mg PO TID #42 cap 11/22/21 03/29/22 Rx Ibuprofen [Motrin] 800 mg PO TID PRN 11/22/21 03/29/22 History Propranolol [Inderal] 40 mg PO TID #42 tab 11/22/21 03/29/22 Rx ARIPiprazole [Abilify Maintena] 400 mg IM Q28D 03/29/22 03/29/22 History HYDROcodone/APAP 7.5-325MG [[place] 1 tab PO TID PRN 03/29/22 03/29/22 History 7.5-325] [place] Carbonate 600 mg PO HS 03/29/22 03/29/22 History Melatonin 5 mg PO HS 03/29/22 03/29/22 History Ondansetron [Zofran] 4 mg PO DAILY PRN 03/29/22 03/29/22 History QUEtiapine FUMARATE [SEROquel] 300 mg PO HS PRN 03/29/22 03/29/22 History amLODIPine [Norvasc] 10 mg PO DAILY 03/29/22 03/29/22 History busPIRone HCL 15 mg PO TID PRN 03/29/22 03/29/22 History Allergies Allergy/AdvReac Type Severity Reaction Status Date / Time caffeine AdvReac Shaking Verified 03/29/22 17:47 Physical Exam BP is 100/76, pulse is 87, respirations 16 and temperature 96.8 and the patient hasn't unforced score of 3 with a BMI of 32.8. Body weight is 242. 17.5. His the size of the neck. The patient appeared well nourished and normally developed. Vital signs as documented. Head exam is unremarkable. No scleral icterus or corneal arcus noted. Neck is without jugular venous distension, thyromegaly, or carotid bruits. Carotid upstrokes are brisk bilaterally. The patient is a Mallampati class IV with crowding of the posterior oropharynx class IV. Lungs are clear to auscultation and percussion. Cardiac exam reveals the PMI to be normally sized and situated. Rhythm is regular. First and second heart sounds normal. No murmurs, rubs or gallops. Abdominal exam reveals normal bowel sounds, no masses, no organomegaly and no aortic enlargement. Extremities are nonedematous and both femoral and pedal pulses are normal.Examination of the skin revealed no evidence of significant rashes, suspicious appearing nevi or other concerning lesions.Neurologically, the patient is awake and alert and the patient does not have any focal neurological deficit. Cranial nerves are essentially intact. Assessment and Plan Plan: Chronic insomnia with difficulties in sleep induction and maintenance. The patient has increased anxiety that builds up overnight and the patient has di fficulty in sleep initiation. He has also difficulties in sleep maintenance problems related to underlying obstructive sleep apnea. Note that he has other factors that could have contributed to his insomnia which includes history of alcoholism, history of traumatic brain injury and other comorbidities including chronic pain. Chronic anxiety/depression along with possibility of an underlying schizophrenia Previous history of alcoholism Chronic arthritic pain and the patient undergone bilateral hip replacement and vitamin D replacement and the patient is currently on [place] and Neurontin Hypertension Acid reflux History of paranoia with previous admissions to the psychiatric unit Plan I discussed with him the principles of sleep hygiene I discussed with the patient's sleep restriction and stimulus control. I discussed the need to eliminate the morning nap and consolidate most of his sleep hours at nighttime I discussed with him relaxation techniques and implementing relaxation and music therapy at nighttime I'm going to start the patient on BuSpar 10 mg to be taken 2 tablets at bedtime and 1 tablet in the morning. This should relieve some of his anxiety and improve his ability to maintain and initiate sleep Effective pain control will be needed to control his pain and his ability to initiate and maintain sleep Continue trazodone We'll continue to follow. A follow-up sleep study will be done to rule out underlying obstructive sleep apnea and evaluate this patient's sleep architecture, maintenance and efficiency. We'll continue to follow
== END ==
LOC: 3 N SLEEP 15:20
PROVIDERS: ATTEND Internal Medicine Critical Care Medicine
DX: G47.33 Obstructive sleep apnea (adult) (pediatric) (principal); F41.9 Anxiety disorder, unspecified; K21.9 Gastro-esophageal reflux disease without esophagitis; I10 Essential (primary) hypertension; F32.A Depression, unspecified; G89.29 Other chronic pain; M16.0 Bilateral primary osteoarthritis of hip; D64.9 Anemia, unspecified; E66.9 Obesity, unspecified; Z79.82 Long term (current) use of aspirin; Z91.018 Allergy to other foods; Z87.891 Personal history of nicotine dependence; Z68.32 Body mass index [BMI] 32.0-32.9, adult
CPT/HCPCS: 99211